=== PATIENT | female | born 1945 | race Caucasian/White ===

== ENCOUNTER 2017-03-24 06:42 | Day surgery (SDC) | payer MEDICARE, OTHER ==
[~2017-03-24 06:42] MED LIST: LIDOCAINE 3.5 % 1ML OPHTH TOPICAL GEL OU
[2017-03-24] MEDS ORDERED: PHENYLEPHRINE HCL 10 % OPHTH. SOL 5ML OS (07:00)
[2017-03-24] MEDS ORDERED: D5W/0.2% SODIUM CHLORIDE 1,000 ML IV (07:00)
[2017-03-24] MEDS ORDERED: PROPARACAINE 0.5% OPHTH SOL 15ML OS (07:01)
[2017-03-24] MEDS ORDERED: fentaNYL 100 MCG/2 ML INJECTION (J3010) As Ordered (07:12)
[2017-03-24] MEDS ORDERED: MIDAZOLAM INJ 2 MG/2 ML VIAL (J2250) As Ordered (07:12)
[2017-03-24] MEDS: CYCLOPENTOLATE 2% OPHTH SOLN 2ML BTL OS (07:21)
[2017-03-24] MEDS: OFLOXACIN 0.3 % (OCUFLOX) OPTH SOL 5ML OS (07:21)
[2017-03-24] MEDS: TROPICAMIDE 1% OPHTH SOLN 2ML OS (07:21)
[2017-03-24] MEDS: PHENYLEPHRINE 2.5% OPHTH SOL 2ML OS (07:21)
[2017-03-24] MEDS: LIDOCAINE 3.5 % 1ML OPHTH TOPICAL GEL OU (07:22)
[2017-03-24] MEDS: POVIDONE-IODINE 5% OPHTH PREP SOL 30ML As Ordered (08:25)
[2017-03-24] MEDS: LIDOCAINE 1% SDV 5 ML VIAL As Ordered (08:25)
[2017-03-24] MEDS: CEFUROXIME 1MG/0.1ML INTRACAMERAL INJ As Ordered (08:25)
[2017-03-24] MEDS: BALANCED SALT IRRIGATION SOLUTION 500ML BAG (FOR OR EYE MACHINE) As Ordered (08:25)
[2017-03-24] MEDS: HEALON DUET (HEALON 10MG/ML 0.55ML & HEALON ENDOCOAT 30MG/ML 0.85ML) As Ordered (08:25)
[2017-03-24] MEDS: ACETYLCHOLINE OPHTH SOLN 1% 2ML (MIOCHOL-E) As Ordered (08:25)
[2017-03-24] MEDS ORDERED: AcetaZOLAMIDE 500 MG ER CAP PO (09:00)
[2017-03-24] MEDS ORDERED: TRIMETHOBENZAMIDE 300 MG CAP PO (09:00)
[2017-03-24] MEDS ORDERED: KETOROLAC 0.5% OPHTH SOLN OS (09:00)
== END 2017-03-24 09:30 | disposition home or self-care (01) ==
LOC: M SDC 06:42
DX: H25.12 Age-related nuclear cataract, left eye (principal); I48.91 Unspecified atrial fibrillation; I10 Essential (primary) hypertension; E78.00 Pure hypercholesterolemia, unspecified; I34.8 Other nonrheumatic mitral valve disorders; L21.9 Seborrheic dermatitis, unspecified; D86.0 Sarcoidosis of lung; R06.02 Shortness of breath; M12.9 Arthropathy, unspecified; M54.5 Low back pain; J45.909 Unspecified asthma, uncomplicated; Z88.6 Allergy status to analgesic agent; Z79.899 Other long term (current) drug therapy; Z79.82 Long term (current) use of aspirin; Z79.01 Long term (current) use of anticoagulants; Z91.010 Allergy to peanuts; Z95.0 Presence of cardiac pacemaker; Z87.81 Personal history of (healed) traumatic fracture; Z78.0 Asymptomatic menopausal state
CPT/HCPCS: 66984

== ENCOUNTER 2017-05-19 08:35 | Day surgery (SDC) | payer MEDICARE, OTHER ==
[~2017-05-19 08:35] MED LIST changes: +CYCLOPENTOLATE 2% OPHTH SOLN 2ML BTL OD; +OFLOXACIN 0.3 % (OCUFLOX) OPTH SOL 5ML OD; +PHENYLEPHRINE 2.5% OPHTH SOL 2ML OD; +PHENYLEPHRINE HCL 10 % OPHTH. SOL 5ML OD; +PROPARACAINE 0.5% OPHTH SOL 15ML OD; +TROPICAMIDE 1% OPHTH SOLN 2ML OD
[2017-05-19] MEDS ORDERED: PHENYLEPHRINE 2.5% OPHTH SOL 2ML As Ordered (08:57)
[2017-05-19] MEDS ORDERED: CYCLOPENTOLATE 2% OPHTH SOLN 2ML BTL As Ordered (08:57)
[2017-05-19] MEDS ORDERED: OFLOXACIN 0.3 % (OCUFLOX) OPTH SOL 5ML As Ordered (08:57)
[2017-05-19] MEDS ORDERED: TROPICAMIDE 1% OPHTH SOLN 2ML As Ordered (08:57)
[2017-05-19] MEDS: AcetaZOLAMIDE 500 MG ER CAP PO (09:00)
[2017-05-19] MEDS ORDERED: TRIMETHOBENZAMIDE 300 MG CAP PO (09:00)
[2017-05-19] MEDS ORDERED: fentaNYL 100 MCG/2 ML INJECTION (J3010) As Ordered (09:05)
[2017-05-19] MEDS ORDERED: MIDAZOLAM INJ 2 MG/2 ML VIAL (J2250) As Ordered (09:05)
[2017-05-19] MEDS: POVIDONE-IODINE 5% OPHTH PREP SOL 30ML As Ordered (09:08)
[2017-05-19] MEDS: BALANCED SALT IRRIGATION SOLUTION 500ML BAG (FOR OR EYE MACHINE) As Ordered (10:10)
[2017-05-19] MEDS: LIDOCAINE 1% SDV 5 ML VIAL As Ordered (10:10)
[2017-05-19] MEDS: HEALON DUET (HEALON 10MG/ML 0.55ML & HEALON ENDOCOAT 30MG/ML 0.85ML) As Ordered (10:19)
[2017-05-19] MEDS: CEFUROXIME 1MG/0.1ML INTRACAMERAL INJ As Ordered (10:19)
[2017-05-19] MEDS ORDERED: ONDANSETRON 4MG/2ML VIAL (J2405) IV (10:45)
[2017-05-19] MEDS: KETOROLAC 0.5% OPHTH SOLN OD (10:51)
== END 2017-05-19 11:00 | disposition home or self-care (01) ==
LOC: M SDC 08:35
DX: H25.11 Age-related nuclear cataract, right eye (principal); I48.91 Unspecified atrial fibrillation; I10 Essential (primary) hypertension; E78.00 Pure hypercholesterolemia, unspecified; I34.9 Nonrheumatic mitral valve disorder, unspecified; K21.9 Gastro-esophageal reflux disease without esophagitis; D86.0 Sarcoidosis of lung; M54.5 Low back pain; J45.909 Unspecified asthma, uncomplicated; Z88.6 Allergy status to analgesic agent; Z91.010 Allergy to peanuts; Z79.899 Other long term (current) drug therapy; Z79.82 Long term (current) use of aspirin; Z79.01 Long term (current) use of anticoagulants; Z95.0 Presence of cardiac pacemaker; Z96.9 Presence of functional implant, unspecified
CPT/HCPCS: 66984

== ENCOUNTER → 2019-05-30 | Outpatient (CLI) | payer MEDICARE, OTHER ==
[~2019-05-30] MED LIST changes: +ASPI81TA26 PO; +BIMA01SOL OU; +BRIM1OPD OU; +CART240C3 PO; -CYCLOPENTOLATE 2% OPHTH SOLN 2ML BTL OD; +DORZ2OPD OU; +ELIQ2.5T PO; +EZET10TA21 PO; +FURO40TA2 PO; -LIDOCAINE 3.5 % 1ML OPHTH TOPICAL GEL OU; +NEXI40CA PO; -OFLOXACIN 0.3 % (OCUFLOX) OPTH SOL 5ML OD; -PHENYLEPHRINE 2.5% OPHTH SOL 2ML OD; -PHENYLEPHRINE HCL 10 % OPHTH. SOL 5ML OD; +PRED10TA2 PO; +PROAAER10 INH; +PROP325C2 PO; -PROPARACAINE 0.5% OPHTH SOL 15ML OD; +SYMB80INH INH; -TROPICAMIDE 1% OPHTH SOLN 2ML OD
[2019-05-30 10:09] LABS: INR 0.94; PROTHROMBIN TIME 12.3 SECONDS (11.8-14.0)
[2019-05-30 10:17] LABS: BASO % 0.3 % (0.0-1.0); EOS % 0.4 % (0.0-3.0); HEMATOCRIT 35.1 % (36.0-47.0); HEMOGLOBIN 10.4 g/dl (12.0-15.5); LYMPH # 0.6 10^3/uL (1.5-5.0); LYMPH % 8.2 % (24.0-44.0); MEAN CORPUSCULAR HGB CONC 29.6 g/dl (32.0-36.5); MEAN CORPUSCULAR VOLUME 91.2 fl (80.0-96.0); MONO # 0.6 10^3/uL (0.0-0.8); MONO % 8.4 % (0.0-5.0); NEUTROPHILS # 6.3 10^3/uL (1.5-8.5); NEUTROPHILS % 82.3 % (36.0-66.0); PLATELET COUNT, AUTOMATED 212 10^3/uL (150-450); RED BLOOD COUNT 3.85 10^6/uL (4.00-5.40); WHITE BLOOD COUNT 7.6 10^3/uL (4.0-10.0)
[2019-05-30 10:43] LABS: ALBUMIN 3.2 GM/DL (3.2-5.2); ALT/SGPT 16 U/L (12-78); BILIRUBIN,TOTAL 0.4 MG/DL (0.2-1.0); BLOOD UREA NITROGEN 16 MG/DL (7-18); CALCIUM LEVEL 9.3 MG/DL (8.8-10.2); CARBON DIOXIDE LEVEL 52 MEQ/L (21-32); CHLORIDE LEVEL 82 MEQ/L (98-107); CREATININE FOR GFR 0.66 MG/DL (0.55-1.30); GLOMERULAR FILTRATION RATE > 60.0 (>39); GLUCOSE, FASTING 93 MG/DL (70-100); POTASSIUM SERUM 3.6 MEQ/L (3.5-5.1); SODIUM LEVEL 135 MEQ/L (136-145); TOTAL PROTEIN 7.9 GM/DL (6.4-8.2)
--- NOTE | 2019-05-30 11:18 | REP ---
CHEST X-RAY: Two views. HISTORY: Post thoracentesis. Status post for ultrasound-guided right thoracentesis. Comparison CT images April 05, 2019. FINDINGS: The right pleural effusion is improved. There is no evidence of complication. On lateral radiograph there is a tiny sliver of pleural air posteriorly on the right. There is extensive pulmonary parenchymal opacity in the right perihilar region and interstitial nodular changes are seen in the right upper lobe. Linear fibrosis is visible on the left and biapical pleural fibrosis is seen. Cardiomegaly is observed with pacemaker in place. IMPRESSION: No complication identified. Electronically Signed by Huber Pulliam MD 05/30/2019 01:28 P
[2019-05-30 11:22] LABS: APPEARANCE, BODY FLUID HAZY (CLEAR); PLEURAL FL COLOR PALE YELLOW (COLORLESS); SOURCE, BODY FLUID PLEURAL
[2019-05-30 11:30] LABS: PH BODY FLUID 7.773 UNITS (NOT ESTABLISHED); SOURCE, BODY FLUID pH PLEURAL
[2019-05-30 11:43] LABS: AMYLASE, BODY FLUID 39 U/L (NOT ESTABLISHED); LDH, BODY FLUID 95 U/L (NOT ESTABLISHED); SOURCE, BODY FLUID AMYLASE PLEURAL; SOURCE, BODY FLUID GLUCOSE PLEURAL; SOURCE, BODY FLUID LDH PLEURAL; SOURCE, BODY FLUID TOT PROTEIN PLEURAL; TOTAL PROTEIN, BODY FLUID 4.3 G/DL (NOT ESTABLISHED)
[2019-05-30 13:00] VITALS: BP 130/60
--- NOTE | 2019-05-30 17:28 | REP ---
ULTRASOUND-GUIDED RIGHT THORACENTESIS The procedure was performed under the direct supervision of Dr. Pulliam. The risks and benefits of the procedure were explained to the patient and informed consent was obtained. The right pleural effusion was localized using ultrasound guidance. The skin was prepped and draped in a sterile fashion. 1% lidocaine was used as a local anesthetic. An 8-Slovak multi side-hole catheter was inserted using trocar technique. 990 ml of jessa colored fluid was withdrawn with a sample sent to the lab for analysis. The patient tolerated the procedure well and there were no immediate complications. After the appropriate amount of monitored convalescence the patient was discharged from the department. Electronically Signed by JEANETH Ahmadi 05/30/2019 03:46 P Electronically Signed by Huber Pulliam MD 05/30/2019 05:19 P
== END ==
LOC: M IRPRO 09:15
PROVIDERS: ATTEND Internal Medicine Pulmonary Disease
DX: J90 Pleural effusion, not elsewhere classified (principal)

== ENCOUNTER → 2019-07-14 | Outpatient (CLI) | payer MEDICARE, OTHER ==
[~2019-07-14] MED LIST changes: +COMB0.2S OU; +ELIQ5TAB PO; +K-TA10TA PO; +POTA1TAB14 PO; +SM E1DRO2 OU; +VENTAER INH
== END ==
LOC: M LABSMTC 11:22
PROVIDERS: ATTEND Anesthesiology
DX: Z01.818 Encounter for other preprocedural examination (principal); Z11.59 Encounter for screening for other viral diseases

== ENCOUNTER 2019-07-15 12:57 | Inpatient (IN) | payer MEDICARE, OTHER ==
[2019-07-15] VITALS (21 sets, daily range): BP systolic 93–144; BP diastolic 45–80; O2SAT 96
[~2019-07-15] VITALS: Ht 162.6 cm; Wt 45.9 kg
[~2019-07-15 12:57] MED LIST changes: +ASPIRIN 81 MG ENTERIC TAB PO SCH; -ELIQ5TAB PO; -K-TA10TA PO; +PANTOPRAZOLE 40MG TAB (PROTONIX) PO SCH
[2019-07-15 16:14] LABS: ABG BASE EXCESS 25.3 (-2.0-2.0); ABG HCO3 58.9 MEQ/L (22.0-26.0); ABG O2 SATURATION 95.9 % (95.0-99.0); ABG PARTIAL PRESSURE CO2 142.5 mmHg (35.0-45.0); ABG PARTIAL PRESSURE O2 90.4 mmHg (75.0-100.0); ABG STANDARD HCO3 50.3 MEQ/L (22.0-26.0); ABG TOTAL CO2 63.3 MEQ/L (23.0-31.0); ABG pH (ARTERIAL) 7.234 UNITS (7.350-7.450)
[2019-07-15 16:24] LABS: HEMATOCRIT 39.8 % (36.0-47.0); HEMOGLOBIN 11.1 g/dl (12.0-15.5); MEAN CORPUSCULAR HEMOGLOBIN 26.8 pg (27.0-33.0); MEAN CORPUSCULAR HGB CONC 27.9 g/dl (32.0-36.5); MEAN CORPUSCULAR VOLUME 96.1 fl (80.0-96.0); PLATELET COUNT, AUTOMATED 214 10^3/uL (150-450); RED BLOOD COUNT 4.14 10^6/uL (4.00-5.40); WHITE BLOOD COUNT 8.9 10^3/uL (4.0-10.0)
[2019-07-15 16:35] LABS: INR 0.95; PROTHROMBIN TIME 12.4 SECONDS (11.8-14.0)
[2019-07-15] MEDS ORDERED: ELIQ5TAB PO (16:47)
[2019-07-15] MEDS ORDERED: K-TA10TA PO (16:47)
[2019-07-15] MEDS ORDERED: EZET10TA21 PO (16:47)
[2019-07-15 17:16] LABS: ALBUMIN 2.9 GM/DL (3.2-5.2); ALT/SGPT 16 U/L (12-78); BILIRUBIN,TOTAL 0.3 MG/DL (0.2-1.0); BLOOD UREA NITROGEN 16 MG/DL (7-18); CALCIUM LEVEL 9.5 MG/DL (8.8-10.2); CHLORIDE LEVEL 85 MEQ/L (98-107); CK-MB VALUE MASS 3.3 NG/ML (<3.6); CPK CREATINE PHOSPHOKINASE 76 U/L (26-192); CREATININE FOR GFR 0.61 MG/DL (0.55-1.30); GLOMERULAR FILTRATION RATE > 60.0 (>39); GLUCOSE, FASTING 97 MG/DL (70-100); MB/CK RELATIVE INDEX 4.34 (< OR =4); NT-PRO BNP 1552 PG/ML (<450); SODIUM LEVEL 143 MEQ/L (136-145); TOTAL PROTEIN 7.6 GM/DL (6.4-8.2); TROPONIN I 0.02 NG/ML (< 0.10)
[2019-07-15 17:17] LABS: CARBON DIOXIDE LEVEL 52 MEQ/L (21-32)
--- NOTE | 2019-07-15 17:28 | HPEPDOC ---
General Date of Admission July 15, 2019 at 15:43 Date of Service: July 15, 2019 Chief Complaint The patient is a 74-year-old female who was transferred from [facility] for right-sided pleural effusion and worsening shortness of breath History of Present Illness Patient is a 74, her female with a PMHx A. fib (on Eliquis), CHF (unknown EF), Symptomatic Betito s/p PM (2017), HTN, DLP, Chronic hypoxic respiratory failure (on 3L O2), Moderate Persistent Asthma, Restrictive lung di sease 2/2 Sarcoidosis, Allergic Rhinitis and GERD who was transferred from [facility] for right-sided pleural effusion. Patient has a recent history of right-sided pleural effusion on 05/30/2019. At that time, she had 990 mL of fluid removed that was consistent with trasudative etiology. Cytology and cell block were negative for malignancy. Fluid accumulation was thought to be from congestive heart failure. Patient was advised to follow-up with her outpatient chicle grinder feeder, Dr. Chandler, and continue with her diuretic regimen. Patient has presented to [facility] for worsening shortness of breath and confusion. In the ER, patient had imaging completed that had revealed a moderate to large right-sided pleural effusion and a hazy left lower lobe opacity. Patient blood test run that showed pH 7.2/pCO 140. Providers had contacted [facility] for transfer for drainage of effusion and BiPAP support. Patient was placed on BiPAP and transferred to [facility]. Upon arrival patient is oriented to person, place and time. Currently patient denies any headache, nausea, vomiting, chest pain or palpitations. . She does report shortness of breath. Reports no change in her baseline cough. Report some chills without fevers. Denies any abdominal pain has reported constipation, no diarrhea or urinary discomfort. Patient has reported that her lower extremities always experience swelling, left is usually worse than right. Home Medications Scheduled Apixaban (Eliquis) 5 Mg Tablet, 2.5 MG PO BID, (Reported) Aspirin (Aspirin EC) 81 Mg Tab, 81 MG PO DAILY, (Reported) Bimatoprost (Lumigan) 50 Drop/2.5 Ml Tabitha, 1 DROP OU QHS, (Reported) Brimonidine Tartrate/Timolol (Combigan 0.2%-0.5% Eye Drops) 5 Ml Drops, 1 DROP OU BID, (Reported) Budesonide/Formoterol (Symbicort 80-4.5 Mcg Inhaler) 60 Puff/Inhaler Aers, 2 PUFF INH BID, (Reported) Diltiazem HCl (Cartia Xt) 240 Mg Cap, 240 MG PO DAILY, (Reported) PT TAKES IN PUDDING Esomeprazole Magnesium (Nexium) 40 Mg Cap, 40 MG PO DAILY, (Reported) Ezetimibe (Ezetimibe) 10 Mg Tablet, 10 MG PO DAILY, (Reported) Furosemide (Furosemide) 40 Mg Tab, 40 MG PO DAILY, (Reported) Ketotifen Fumarate (Eye Itch Relief) 5 Ml Drops, 0.025 % OU PRN, (Reported) Potassium Chloride (K-Tab ER) 10 Meq Tablet.er, 10 MEQ PO DAILY, (Reported) PT TAKES IN PUDDING Propafenone HCl (Propafenone HCl ER) 325 Mg Cap, 325 MG PO BID, (Reported) PT TAKES IN PUDDING Scheduled PRN Albuterol Sulfate (Ventolin Hfa) 18 Gm Hfa.aer.ad, 2 PUFFS INH DAILY PRN for DYSPNEA, (Reported) Allergies Coded Allergies: Peanut (Unverified Allergy, Intermediate, hives, 07/14/19) acetaminophen (Verified Allergy, Intermediate, rash, 07/14/19) Past Medical History Medical History A. fib (on Eliquis), CHF (unknown EF), Symptomatic Betito s/p PM (2017), HTN, DLP, Chronic hypoxic respiratory failure (on 3L O2), Moderate Persistent Asthma, Restrictive lung disease 2/2 Sarcoidosis, Allergic Rhinitis and GERD Surgical History Pacemaker placement [address] Gonzales; patient is scheduled for battery replacement 07/17/2019 R sided thoracentesis, 05/30/2019, remove 990 mL of fluid. Cytology negative. Cell block negative. 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 - Baseline, patient uses a walker/cane to ambulate Review of Systems Other systems 10 point review of systems complete, all negative otherwise stated in HPI Vital Signs - Vitals: BP 137/63, HR 83, RR 22, Sat 94%Venti, Temp 97.6F - General: Lying in bed, Can speak in full sentences, AAOx3 - HEENT: NC, AT, PERRLA - CVS: RRR, +S1S2 - Lungs: Decreased aeration of right lung base, no appreciable wheezing or rhonchi, very faint crackles at left base - Abdomen: Soft, Non-distended, Non-tender - Extremities: 2+ pitting edema bilaterally, No calf tenderness - Neuro: No focal motor or sensory deficit - Skin: No visible rashes Laboratory Data Labs 24H Laboratory Tests 2 07/15/19 15:58: Nucleated Red Blood Cells % (auto) 0.0, Prothrombin Time 12.4, Prothromb Time International Ratio 0.95, Blood Gas Bicarbonate Standard 50.3H, Arterial Blood pH 7.234*L, Arterial Blood Partial Pressure CO2 142.5*H, Arterial Blood Partial Pressure O2 90.4, Arterial Blood Total CO2 63.3H, Arterial Blood HCO3 58.9H, Arterial Blood Base Excess 25.3H, Arterial Blood Oxygen Saturation 95.9, Anion Gap 6L, Glomerular Filtration Rate > 60.0, Lactic Acid Level 1.0, Calcium Level 9.5, Total Bilirubin 0.3, Aspartate Amino Transf (AST/SGOT) 22, Alanine Aminotransferase (ALT/SGPT) 16, Alkaline Phosphatase 112, Ammonia 17, Total Creatine Kinase 76, Creatine Kinase MB 3.3, Creatine Kinase MB Relative Index 4.34H, Troponin I 0.02, VR-Fkl-L-Type Natriuretic Peptide 1552H, Total Protein 7.6, Albumin 2.9L, Albumin/Globulin Ratio 0.62L 07/15/19 16:28: Urine Color STRAW, Urine Appearance CLEAR, Urine pH 5.0, Urine Specific [place] 1.006, Urine Protein NEGATIVE, Urine Glucose (UA) NEGATIVE, Urine Ketones NEGATIVE, Urine Blood 2+H, Urine Nitrite NEGATIVE, Urine Bilirubin NEGATIVE, Urine Urobilinogen 0.2, Urine Leukocyte Esterase NEGATIVE, Urine WBC (Auto) 0, Urine RBC (Auto) 10H, Urine Hyaline Casts (Auto) 25, Urine Bacteria (Auto) NEGATIVE, Urine Squamous Epithelial Cells 0, Urine Mucus (Auto) SMALL, Urine Sperm (Auto) CBC/BMP Laboratory Tests 07/15/19 15:58 Microbiology Microbiology 07/15/19 Blood Culture, Received Pending 07/15/19 Blood Culture, Received Pending Plan / VTE VTE Prophylaxis Ordered?: Yes Plan Plan Acute hypercapnic respiratory failure on Chronic hypoxic respiratory failure - likely 2/2 recurrent R sided pleural effusion - possibly 2/2 congestive heart failure - Patient has a history of restrictive lung disease secondary to sarcoidosis - Chronically uses 3 L of oxygen continuously - Patient recently had right-sided thoracentesis completed 05/2019 with ~1000cc fluid removal; transudative - Upon presentation to [facility] on 07/14, patient was describing SOB - ABG completed at [place] and at [facility] has revealed profound PCO2 retention - CXR 07/14 at [place] revealed moderate-large R pleural effusion, hazy LLL opacity, L sided pacemaker - CT scan ordered stat at [facility] has revealed significant right-sided pleural effusion - Case and discuss with pulmonology and cardiothoracic surgery; will be on consultation for BiPAP management and likely right-sided chest tube placement; appreciate their input - Patient will be placed on BiPAP with repeat ABG to be performed one hour post Recurrent R sided pleural effusion - possibly 2/2 congestive heart failure, unlikely 2/2 pneumonia - Hemodynamically stable / Afebrile - No leukocytosis noted, No lactic acidosis - Physical reveals decreased lung sounds at R lung field and b/l LE pitting edema - Preliminary imaging noted above - Troponin at [facility] was < 0.01 - EKG reveals paced rhythm from [facility] - Will repeat EKG - Will get ECHO / Serial troponins - Will start diuresis for net negative protocol to maintain ~ 2000 cc out - Case and discuss cardiothoracic surgery; will be on consultation for likely right-sided chest tube placement today Acute metabolic encephalopathy - likely 2/2 acid-base abnormalities / pCO2 retention - Physical does not reveal any focal neurologic deficits - Patient is oriented to person, place and time - CT head 07/14: Completed a [facility] does not reveal any acute abnormalities - Will continue to correct acid-base / pCO2 (see above) A. fib - Patient appears to be a paced rhythm - c/w rate control with diltizem; adjusted to short acting - Will hold full anticoagulation with Eliquis (re: Chest tube placement and scheduled battery replacement) Symptomatic Bradycardia s/p PM (2016) - Patient has had pacemaker placed by Dr. Gonzales - Discussed with Dr. Gonzales schedules battery replacement for pacemaker on 07/17/19 - Patient is to remain off pelvis from today and nothing by mouth Wednesday night for PM battery replacement on 07/17/2019 HTN - BP well controlled - Will c/w Diltiazem; will transition to short acting form - c/w Furosemide IV DLP - c/w Ezetimibe Moderate Persistent Asthma /Restrictive lung disease 2/2 Sarcoidosis - See above - Will resume home inhaled therapy Hypomagnesemia - Mg of 1.4 at [place] - Was given Mag run x 1; will repeat Mg level Allergic Rhinitis GERD - c/w Protonix DVT prophylaxis - Will start Heparin - Eliquis on hold (re: Chest tube placement and PM battery exchange on 07/17/2019) NOAH BELLAMY MD July 15, 2019 17:28
[2019-07-15] MEDS ORDERED: LIDOCAINE 1% MDV 20ML VIAL As Ordered ONE (17:42)
[2019-07-15 17:49] LABS: ABG HCO3 65.3 MEQ/L (22.0-26.0); ABG O2 SATURATION 91.7 % (95.0-99.0); ABG PARTIAL PRESSURE CO2 139.2 mmHg (35.0-45.0); ABG PARTIAL PRESSURE O2 67.3 mmHg (75.0-100.0); ABG STANDARD HCO3 58.3 MEQ/L (22.0-26.0); ABG TOTAL CO2 69.6 MEQ/L (23.0-31.0); ABG pH (ARTERIAL) 7.289 UNITS (7.350-7.450)
[2019-07-15] MEDS: FUROSEMIDE 40MG/4ML VIAL (J1940) IV SCH ×3 (18:00→23:50)
[2019-07-15] MEDS ORDERED: LACTULOSE 20 GM/30 ML SYRUP UD PO SCH (18:00)
[2019-07-15] MEDS ORDERED: LIDOCAINE 1% MDV 20ML VIAL SC ONE (18:15)
[2019-07-15] MEDS: PANTOPRAZOLE 40MG VIAL (C9113 PER 1) IV SCH (18:31)
[2019-07-15 18:33] LABS: ABG BASE EXCESS 29.5 (-2.0-2.0); ABG HCO3 62.4 MEQ/L (22.0-26.0); ABG O2 SATURATION 92.1 % (95.0-99.0); ABG PARTIAL PRESSURE CO2 132.7 mmHg (35.0-45.0); ABG PARTIAL PRESSURE O2 68.5 mmHg (75.0-100.0); ABG STANDARD HCO3 55.1 MEQ/L (22.0-26.0); ABG TOTAL CO2 66.4 MEQ/L (23.0-31.0)
[2019-07-15 19:06] LABS: PH BODY FLUID 7.588 UNITS (NOT ESTABLISHED); SOURCE, BODY FLUID pH PLEURAL
[2019-07-15 19:10] LABS: APPEARANCE, BODY FLUID CLOUDY (CLEAR); PLEURAL FL COLOR YELLOW (COLORLESS); SOURCE, BODY FLUID PLEURAL
[2019-07-15 19:28] LABS: LDH LACTATE DEHYDROGENASE 212 U/L (84-246)
[2019-07-15 19:31] LABS: AMYLASE, BODY FLUID 39 U/L (NOT ESTABLISHED); CHOLESTEROL, BODY FLUID < 50 MG/DL (NOT ESTABLISHED); LDH, BODY FLUID 82 U/L (NOT ESTABLISHED); SOURCE, BODY FLUID ALBUMIN PLEURAL; SOURCE, BODY FLUID AMYLASE PLEURAL; SOURCE, BODY FLUID CHOL PLEURAL; SOURCE, BODY FLUID GLUCOSE PLEURAL; SOURCE, BODY FLUID LDH PLEURAL; SOURCE, BODY FLUID TOT PROTEIN PLEURAL; SOURCE, BODY FLUID TRIG PLEURAL; TOTAL PROTEIN, BODY FLUID 3.2 G/DL (NOT ESTABLISHED); TRIGLYCERIDE, BODY FLUID 8 MG/DL (NOT ESTABLISHED)
[2019-07-15] MEDS: SYMBICORT 80/4.5MCG INHALER 6GM INH SCH (20:13)
[2019-07-15] MEDS: ALBUTEROL SULFATE 2.5 MG/0.5 ML INH NEB SOLN INH PRN (20:14)
[2019-07-15 20:42] LABS: ABG BASE EXCESS 25.9 (-2.0-2.0); ABG HCO3 55.8 MEQ/L (22.0-26.0); ABG O2 SATURATION 93.4 % (95.0-99.0); ABG PARTIAL PRESSURE O2 65.7 mmHg (75.0-100.0); ABG STANDARD HCO3 50.9 MEQ/L (22.0-26.0); ABG TOTAL CO2 58.7 MEQ/L (23.0-31.0); ABG pH (ARTERIAL) 7.395 UNITS (7.350-7.450)
[2019-07-15 20:46] LABS: ABG PARTIAL PRESSURE CO2 93.3 mmHg (35.0-45.0)
[2019-07-15 21:07] LABS: CK-MB VALUE MASS 3.1 NG/ML (<3.6); MB/CK RELATIVE INDEX 4.03 (< OR =4); TROPONIN I 0.02 NG/ML (< 0.10)
--- NOTE | 2019-07-15 21:36 | CCN ---
DATE: 07/15/2019 Start time: 1819 Stop time: 1853 I attended Liv Caicedo here in the intensive care unit. The patient has been examined and chart reviewed and I spoken at length with Dr. Mathis, the nursing staff at the bedside and Dr. Romo regarding her status. He has just recently updated the family as well. In essence, this is a 74-year-old female known to me from the outpatient setting. She has underlying asthma, previous sarcoid, chronic hypoxemic respiratory failure with Cor pulmonale and known cardiac dysfunction with indwelling pacemaker. She recently had difficulties with right-sided pleural effusion and this was drained about six weeks ago. [place] to be predominantly cardiac related. She presented to [facility] emergency room (ER) today with mental status changes. She was found to have a very significant respiratory acidosis with a pH of 7.21, pCO2 of 136. She was transferred here. On arrival, on 2 liters nasal cannula, pH 7.234, pCO2 142, pAO2 of 90.4. She was placed on noninvasive support. PH 7.289, pCO2 139.2, pAO2 of 67. Right thoracostomy placed by Dr. Mathis, removed approximately 1.5 liter of fluid. Immediately after that, repeat blood gas showed a pH now up to 7.29, pCO2 132.7, pAO2 of 68.5. Noninvasive support settings were manipulated by myself. Currently, she is breathing about 14 to 18 times a minute. Minute volume in and around 5.5 liters. She is moving tidal volumes between 270 and 300 at the moment and is quite comfortable. Pacemaker is firing with the rate in the 70s. Blood pressure 126 systolic. She is afebrile. On exam, shows her to be arousable to noxious stimuli, but does not follow commands. This is significantly better than she was about an hour and a half ago, however. Pupils react. Sclerae are clear. Trache is midline. Jugular venous is difficult to assess in view of the BiPAP mask. Chest shows a right thoracostomy tube in place. Expansion although diminished is symmetric. Decreased breath sound intensity bilaterally. No wheeze. No rubs. Heart exam distant, but regular. Peripheral pulses markedly diminished. There is at least 2 to 3+ edema of the lower extremities to the level of the hips bilaterally. Abdomen soft, there are active bowel sounds. Extremities: No cyanosis or clubbing. Neurologically, she is sedated and moves all extremities when stimulated. The laboratories show a sodium of 143, potassium of 5.0, chloride of 85, CO2 of 52, BUN 16, creatinine 0.61. Troponin is 0.02. White blood cell count 8.9, hemoglobin 11.1 and platelet count of 214,000, no differential. No methicillin-resistant Staphylococcus aureus (MRSA). She was tested for COVID several days ago and it is negative, as she was due to have a pacemaker battery replaced several days from now. MOST PRESSING PROBLEMS REQUIRED MY INTERMEDIATE PRESENCE AT THE BEDSIDE: 1. Acute on chronic respiratory failure, hypoxemic and hypercapnic. 2. Cor pulmonale. 3. Pleural effusion predominately on the basis of the above. 4. History of asthma. 5. History of sarcoid. 6. Indwelling pacemaker. At this point, we made manipulations in noninvasive support. Will repeat a blood gas at 9 o'clock. This situation was discussed with her family by Dr. Romo and at this point, they do request at least a trial of intubation and C-reactive protein (CRP), but do not wish prolonged support should she not be doing well. We await a repeat blood gas. My hopes is that she can avoid endotracheal intubation. We will aggressively diurese her. This is being engineered by Dr. Romo. We will continue treatment for underlying asthma. At this point, she is critically ill. I left the bedside at 1854 hours. 34 minutes of critical care time at the bedside, not including procedures.
[2019-07-15] MEDS ORDERED: PROPOFOL 1,000 MG/100 ML VIAL As Ordered ONE (21:55)
--- NOTE | 2019-07-15 22:04 | IPNPDOC ---
Text Note Date of Service The patient was seen on 07/15/19. NOTE Code called at 2150 We were called to the bedside bc the patient's O2 sat dropped to the 60s and she was found to be unresponsive. She continued to have a pulse. She was intubated by anesthesiology at approximately 1005PM. was informed. 106/54 / HR 94 ? RR 22/ O2 94% sedated and intubated ET in place connected to bag #Acute hypoxic respiratory failure Plan: vent management per / pulmonary training / f/u chest xray and ABG in one hour VS,Fishbone, I+O VS, Fishbone, I+O Laboratory Tests 07/15/19 15:58 Vital Signs Date Time Temp Pulse Resp B/P (MAP) Pulse Ox O2 Delivery O2 Flow Rate FiO2 07/15/19 20:14 30 07/15/19 20:00 98.2 161 131/80 (97) 95 NIPPV (BIPAP/CPAP) 40 07/15/19 15:50 15.0 RHODA PRINCE MD July 15, 2019 22:04
[2019-07-15] MEDS ORDERED: PHENYLEPHRINE 10MG/ML 1ML VIAL (J2370 PER 1) As Ordered ONE (22:09)
[2019-07-15] MEDS ORDERED: NS 1,000 ML IV SCH (22:15)
[2019-07-15] MEDS ORDERED: LORazepam 2 MG/ML VIAL (J2060) As Ordered ONE (23:00)
[2019-07-15] MEDS ORDERED: LORazepam 2 MG/ML VIAL (J2060) IV PRN ×2 (23:15)
[2019-07-15] MEDS ORDERED: levETIRAcetam INJection 1,000 MG in D5W 100 ML IV ONE (23:15)
[2019-07-15 23:34] LABS: ABG BASE EXCESS 24.7 (-2.0-2.0); ABG HCO3 48.8 MEQ/L (22.0-26.0); ABG O2 SATURATION 98.4 % (95.0-99.0); ABG PARTIAL PRESSURE CO2 47.9 mmHg (35.0-45.0); ABG PARTIAL PRESSURE O2 85.3 mmHg (75.0-100.0); ABG STANDARD HCO3 49.7 MEQ/L (22.0-26.0); ABG TOTAL CO2 50.3 MEQ/L (23.0-31.0)
[2019-07-15 23:35] LABS: ABG pH (ARTERIAL) 7.626 UNITS (7.350-7.450)
[2019-07-15] MEDS ORDERED: ISOVUE-370 76% 100ML VIAL As Ordered ONE (23:45)
[2019-07-15] MEDS: HEPARIN SOD (PORCINE) 5000UNITS/ML VIAL (J1644 PER 1000UNITS) SQ SCH (23:48)
[2019-07-16] VITALS (69 sets, daily range): BP systolic 81–149; BP diastolic 37–75; O2SAT 94–95
--- NOTE | 2019-07-16 00:49 | REPVR ---
PROCEDURE INFORMATION: Exam: CT Head Without And With Contrast Exam date and time: 07/15/2019 12:27 AM Age: 74 years old Clinical indication: Pain; Headache; Additional info: Witnessed seizure after loc TECHNIQUE: Imaging protocol: Computed tomography of the head without and with intravenous contrast. Radiation optimization: All CT scans at this facility use at least one of these dose optimization techniques: automated exposure control; mA and/or kV adjustment per patient size (includes targeted exams where dose is matched to clinical indication); or iterative reconstruction. Contrast material: ISO 370; Contrast volume: 75 ml; Contrast route: IV; COMPARISON: CT IAC W/O CONTRAST 12/08/2013 2:37 PM FINDINGS: Brain: Mild hypodensities in the periventricular white matter which are consistent with chronic small vessel ischemic disease. No acute mass effect. No acute intracranial hemorrhage. Cortical castaneda-white matter differentiation is preserved. No abnormal enhancing lesions. Ventricles: Normal. No ventriculomegaly. Bones/joints: Unremarkable. No acute fracture. Sinuses: Visualized sinuses are unremarkable. No fluid levels. Mastoid air cells: Visualized mastoid air cells are well aerated. Soft tissues: Unremarkable. Vasculature: Atherosclerotic calcification of the carotid siphon. IMPRESSION: 1. Mild hypodensities in the periventricular white matter which are consistent with chronic small vessel ischemic disease. 2. No abnormal enhancing lesions. Electronically signed by: Marcela Ribeiro On 07/16/2019 00:49:24 AM
[2019-07-16 02:13] LABS: CK-MB VALUE MASS 1.8 NG/ML (<3.6); MB/CK RELATIVE INDEX 1.43 (< OR =4); TROPONIN I 0.05 NG/ML (< 0.10)
[2019-07-16 02:26] LABS: BLOOD UREA NITROGEN 20 MG/DL (7-18); CALCIUM LEVEL 8.3 MG/DL (8.8-10.2); CHLORIDE LEVEL 77 MEQ/L (98-107); CREATININE FOR GFR 0.66 MG/DL (0.55-1.30); GLOMERULAR FILTRATION RATE > 60.0 (>39); GLUCOSE, FASTING 120 MG/DL (70-100); MAGNESIUM LEVEL 1.5 MG/DL (1.8-2.4); POTASSIUM SERUM 4.2 MEQ/L (3.5-5.1); SODIUM LEVEL 130 MEQ/L (136-145)
[2019-07-16] MEDS ORDERED: MAG SULF 1GM/100ML (MAG RUN) 1 GM in IV 1 EA IV ONE (02:30)
[2019-07-16 02:40] LABS: CARBON DIOXIDE LEVEL 50 MEQ/L (21-32)
[2019-07-16] MEDS ORDERED: ACETAZOLAMIDE 500 MG IV STA (03:18)
[2019-07-16] MEDS ORDERED: NOREPINEPHRINE BITARTRATE 8 MG in D5W 500 ML IV SCH (05:14)
[2019-07-16 05:29] LABS: ALBUMIN 2.1 GM/DL (3.2-5.2)
[2019-07-16 05:54] LABS: ABG BASE EXCESS 24.8 (-2.0-2.0); ABG HCO3 50.2 MEQ/L (22.0-26.0); ABG O2 SATURATION 93.2 % (95.0-99.0); ABG PARTIAL PRESSURE CO2 56.8 mmHg (35.0-45.0); ABG PARTIAL PRESSURE O2 54.9 mmHg (75.0-100.0); ABG STANDARD HCO3 49.5 MEQ/L (22.0-26.0); ABG TOTAL CO2 51.9 MEQ/L (23.0-31.0); ABG pH (ARTERIAL) 7.564 UNITS (7.350-7.450)
[2019-07-16] MEDS: levETIRAcetam INJection 500 MG in D5W MINI-BAG PLUS 100 ML IV SCH ×2 (06:49→18:01)
[2019-07-16] MEDS: HEPARIN SOD (PORCINE) 5000UNITS/ML VIAL (J1644 PER 1000UNITS) SQ SCH ×3 (06:49→21:03)
--- NOTE | 2019-07-16 07:47 | REP ---
REASON: Followup pleural effusion. The lack of intravenous contrast significantly decreases the sensitivity of the exam. COMPARISON EXAM: 04/05/2019 from an outside institution. There are large bilateral pleural effusions, large on the right, small on the left, possibly with some loculation. These have increased from the prior exam. There is possible bilateral hilar adenopathy, difficult to assess without intravenous contrast administration. In addition, there is marked streak artifact arising from pacemaker battery and hardware on the left. The imaged upper abdomen is stable. The imaged osseous structures are stable and intact. Evaluation of the lung mills shows heavy patchy interstitial and airspace opacities throughout the lung mills. IMPRESSION: 1. Bilateral pleural effusions, as described above. 2. Possible bilateral hilar adenopathy, as described above. 3. Bilateral airspace and interstitial opacities increased from the prior exam suspicious for pneumonia/edema. 4. Other findings and limitations as described above. Electronically Signed by Buddy Stoner DO 07/16/2019 08:39 A
--- NOTE | 2019-07-16 07:52 | CR ---
DATE OF CONSULTATION: 07/15/2019 REFERRING PHYSICIAN: The patient seen at the request of the hospitalist service, Dr. Romo, for a large pleural effusion and shortness of breath. At the time of my meeting the patient at around 5 o'clock this afternoon, she was still unresponsive. Even a sternal rub did not elicit a response. The history of present illness is gleaned from the medical record. She is a longstanding patient of Dr. Melgar who has sarcoidosis and supposed chronic obstructive pulmonary disease (COPD). She had a pleural effusion drained towards the end of May, which looked to be transudative and lymphocytic. It was thought that it was secondary to heart failure. She carries the diagnosis of old sarcoidosis, along with congestive heart failure (CHF) and atrial fibrillation, on Eliquis. Evidently, this afternoon, she presented to [facility] for increasing shortness of breath and confusion. Chest x-ray revealed a very large opacity on her right side consistent with a pleural effusion. The patient's blood gas at this point in time showed a PCO2 of 140. By history of Dr. Melgar, she is chronically hypercarbic. She was transferred here. MEDICATIONS AT HOME: - Eliquis 5 mg by mouth twice a day - aspirin 81 mg every day - Lumigan one drop both eyes (OU) nightly - Combigan eyedrops one drop OU twice a day - Symbicort 80/4.5 two puffs twice a day - diltiazem 240 mg every day - Nexium 40 mg every day - ezetimibe 10 mg every day - Lasix 40 mg every day - K-Dur 10 mg every day - propafenone 325 mg every day ALLERGIES: PEANUTS and ACETAMINOPHEN, to which she gets a rash. PAST MEDICAL HISTORY: See history of present illness. PAST SURGICAL HISTORY: Pacemaker [address] Gonzales scheduled for battery replacement this Wednesday, thoracentesis on 05/30/2019 with removal of 990 mL of fluid, left and right cataract surgeries, left humeral fracture, left ankle fracture, appendectomy, and tonsillectomy in the remote past. FAMILY HISTORY: Mother and father with a history of heart disease. No cancer in the family. HABITS: Unknown smoking history. According to the history and physical when she was awake, she does not use tobacco or illicit drugs and that she drinks alcohol socially. 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 REVIEW OF SYSTEMS: Not obtainable. PHYSICAL EXAMINATION: An undernourished white female, not responsive and unconscious. VITAL SIGNS: Temperature is 97.6 with a pulse of 84 in a paced rhythm, respiratory rate of 42 but without the use of accessory muscles but on bilateral positive airway pressure (BiPAP). She is 96% saturated on 100% FIO2, and her blood pressure is 144/64. EYES: Pupils pinpoint but equal. I do not get reaction because they are so constricted. I cannot tell if extraocular movements are intact. Her sclerae are anicteric. NOSE: Without deformity with some dried blood in the left nostril. MOUTH: Mucous membranes are pink and moist. She has a full set of upper teeth. There is no thrush. Lips and commissures look to be without lesions. NECK: Is supple. There is no jugular venous distention, no subcutaneous emphysema. Trachea is midline. LUNGS: Show markedly decreased breath sounds on the right side laterally and anteriorly. They are decreased laterally on the right. The left shows rhonchi and rales. CARDIAC EXAMINATION: Shows a 2-3 old systolic murmur at the apex. I cannot feel her point of maximal impulse (PMI). S1 and S2 are normal. ABDOMEN: Is soft and nontender. Bowel sounds are positive. I feel a mass in the left upper quadrant. I am not sure whether it is her spleen. EXTREMITIES: Show 3-4+ pretibial edema. I cannot tell if there is calf tenderness. There is no differential swelling of the upper extremities. SKIN: Shows mottling of the knees. Her skin, however, is warm and dry. NEUROLOGICAL: Shows her to be unresponsive. I did not check a gag reflex because she is on BiPAP. There is no response to a sternal rub. PSYCHIATRIC: Shows her to be unconscious. INVESTIGATIONS: Her white count is 8.9 with hemoglobin and hematocrit of 11.1 and 39.8. Platelet count is 214. There is no differential. Her electrolytes show a markedly elevated total CO2 of 52 and a chloride of 85. BUN and creatinine are 16 and 0.61. Lactic acid is 1. Her AST and ALT are normal, as is her ammonia level. Troponin is 0.02, and her brain natriuretic peptide is 1552 with an albumin of 2.9 and a calcium of 9.5. Her corrected calcium is 10.4, which makes her hypercalcemic. Her blood gases today show a pH of 7.28 with a PCO2 of 139 and a pO2 of 67 on 100% FIO2. Her base excess is 32. On admission 2 hours ago, her pH was 7.23, PCO2 of 142, and a pO2 of 90. Her chest x-ray shows a diffuse opacity in the right lower hemithorax. CT scan done here shows a large pleural effusion with compression of the lower and middle lobes. She has emphysematous changes and a significant amount of diffuse infiltrative processes in both lungs. I do not see significant mediastinal lymphadenopathy. On top of the infiltrates, there looks to be considerable fibrosis medially. Dr. Melgar informs me that this is old sarcoidosis. She has a small left pleural effusion. There is no pericardial effusion. She has a huge pulmonary artery measuring at least 4.[address] done without contrast. It looks as though she has a large left atrium, a large right ventricle. Her spleen is not enlarged. Her stomach looks to have quite thickened sifuentes. The pancreas looks normal. IMPRESSION: 1. Large pleural effusion. 2. Congestive heart failure. 3. Pulmonary hypertension. 4. Severe CO2 retention. 5. Chronic obstructive pulmonary disease. 6. Atrial fibrillation, on Eliquis. 7. History of sarcoidosis. 8. Hypercapnic respiratory failure. 9. Gastroesophageal reflux disease (GERD). 10. Possible gastric mass, question linitis plastica. 11. Mental status changes, unresponsive coma. PLAN AND DISCUSSION: Echocardiogram done with me at the bedside showed her to have a normal systolic function. She has a pulmonary artery pressure of at least 50 with moderate mitral regurgitation and tricuspid regurgitation. There is no pericardial effusion. Her most pressing problem now is her mental status changes. I will place a chest tube to drain her. As she is unconscious and as her CO2 is 140, I will not sedate her. It should be noted that after placement of the chest tube that her tidal volume went from the low 100s to 300 on the BiPAP. Maybe now that we can get some ventilation, her mental status will improve from her CO2 narcosis. Will send the specimens for the requisite studies of cytologies, hematologies, chemistries, and bacteriologies.
--- NOTE | 2019-07-16 07:58 | RO ---
DATE OF PROCEDURE: 07/15/2019 PREPROCEDURE DIAGNOSIS: Right pleural effusion. POSTPROCEDURE DIAGNOSIS: Right pleural effusion. PROCEDURE: Insertion of a right lateral chest tube. SURGEON: Dash Mathis MD CLEANER FURNITURE: ANESTHESIA: FINDINGS: 1400 mL of clear jessa fluid was eluded from the chest. It was sent for requisite studies of cytologies, hematologies, chemistries, and bacteriologies. DESCRIPTION OF PROCEDURE: As patient was unconscious and nonresponsive, Versed was not used. Patient was prepped and draped in the usual sterile fashion. An incision was made over the approximate 7th intercostal space. A tunnel was created in the chest. A #24 chest tube was placed without difficulty. The above-findings were noted. Chest tube was secured to the chest wall. Patient tolerated the procedure well, and a chest x-ray is pending.
[2019-07-16] MEDS: ALBUTEROL SULFATE 2.5 MG/0.5 ML INH NEB SOLN INH PRN ×3 (08:04→19:49)
--- NOTE | 2019-07-16 08:14 | ECHO ---
DATE OF STUDY: 07/15/2019 REFERRING PHYSICIAN: Yoko Romo MD INDICATION: Peripheral edema (localized). HEIGHT: 155 cm. WEIGHT: 53 kg. 2D MEASUREMENTS: Left atrium: 3.5 cm Aortic root: 3.0 cm Aortic annulus: 1.8 cm Ventricular septum: 1.03 cm Posterior wall: 1.04 cm Left ventricle diastole: 3.8 cm Inferior vena cava: 1.7 cm with marked reduction of respiratory variation DOPPLER MEASUREMENTS: Trace aortic regurgitation. No aortic stenosis. Aortic valve velocity: 207 cm/s LVOT velocity: 153 cm/s LVOT VTI: 27.0 cm Very mild mitral regurgitation. Mitral E velocity: 68.7 cm/s Mitral A velocity: 79.8 cm/s Mitral deceleration time: 236 ms Moderate tricuspid regurgitation. Estimated right ventricle systolic pressure: 70 mmHg assuming a right pressure of 20 mmHg Mild pulmonic regurgitation. Pulmonary acceleration time: 63 ms MITRAL ANNULAR TISSUE DOPPLER: E prime septal: 4.2 cm/s E prime lateral: 5.1 cm/s DESCRIPTION: Rhythm appeared to be predominantly AV paced rhythm or perhaps sinus rhythm/ventricular paced. This was a 2D, M-mode, color flow Doppler and pulse wave Doppler examination and included mitral annular tissue Doppler. CONCLUSIONS: 1. Normal left ventricle internal dimensions and wall thickness. Normal regional left ventricle (LV) wall motion and wall thickening. No paradoxical septal motion was appreciated by visual inspection. Hyperdynamic LV systolic function. Left ventricular ejection fraction (LVEF) 70% by visual estimate. Grade 1 LV diastolic dysfunction (impaired relaxation filling pattern). Moderate partial effusion of the early rapid filling phase with atrial filling phase at 76 beats per minute (BPM). 2. Suggestive of severe elevation of estimated right ventricle systolic pressure (70 mmHg assuming a right pressure of 20 mmHg). Normal right ventricle size. Appearance of mild hypertrophy of the right ventricle free wall. Normal right ventricle systolic function. Mild partial flattening of the curvature of the ventricular septum in both diastole and systole in keeping with both volume and pressure overload of the right ventricle. Structurally normal-appearing tricuspid leaflets. Moderate tricuspid regurgitation. Mild pulmonic regurgitation. Marked reduction of respiratory variation in inferior vena cava suggestive of elevated central venous pressure (estimated to be 20 mmHg). 3. Right pleural effusion (at least moderate). 4. No pericardial effusion. 5. Mild aortic valve sclerosis of a three-cuspid aortic valve. No aortic stenosis. Trace aortic regurgitation. 6. The presence of endocardial, atrial, and right ventricle pacemaker leads. MTDD
[2019-07-16 08:19] LABS: BLOOD UREA NITROGEN 19 MG/DL (7-18); CALCIUM LEVEL 7.9 MG/DL (8.8-10.2); CARBON DIOXIDE LEVEL 52 MEQ/L (21-32); CHLORIDE LEVEL 77 MEQ/L (98-107); CREATININE FOR GFR 0.71 MG/DL (0.55-1.30); GLOMERULAR FILTRATION RATE > 60.0 (>39); GLUCOSE, FASTING 118 MG/DL (70-100); MAGNESIUM LEVEL 2.3 MG/DL (1.8-2.4); PHOSPHORUS LEVEL 1.3 MG/DL (2.5-4.9); POTASSIUM SERUM 3.8 MEQ/L (3.5-5.1); SODIUM LEVEL 132 MEQ/L (136-145)
--- NOTE | 2019-07-16 08:20 | RO ---
DATE OF PROCEDURE: 07/15/2019 PREPROCEDURE DIAGNOSIS: Respiratory failure. POSTPROCEDURE DIAGNOSIS: Respiratory failure. PROCEDURE: Insertion of central venous triple-lumen catheter. The site is right subclavian vein. SURGEON: Dr. Hemal Melgar BOOT TURNER: ANESTHESIA: The procedure was performed emergently. DESCRIPTION OF PROCEDURE: After the right subclavian area was prepped and draped in the usual sterile manner, the right subclavian was easily cannulated with a large bore needle. In a modified Seldinger technique, a triple-lumen central venous catheter was easily advanced. Good venous return was obtained from all three ports. Each port was then flushed. The line was then sutured in place and a sterile dressing applied. Some mild ectopy was noted when the wire was in place that resolved spontaneously with the wire removed. Chest x-ray done immediately postprocedure showed the line to be in good position. No complications noted.
[2019-07-16] MEDS: SYMBICORT 80/4.5MCG INHALER 6GM INH SCH ×2 (08:25→19:49)
--- NOTE | 2019-07-16 08:25 | RO ---
DATE OF PROCEDURE: 07/15/2019 PREPROCEDURE DIAGNOSIS: Hypotension. POSTPROCEDURE DIAGNOSIS: Hypotension. PROCEDURE: Insertion of enteral arterial catheter. The site is right femoral artery. SURGEON: Dr. Hemal Melgar COVERAGE SPECIALIST: ANESTHESIA: The procedure was performed emergently. DESCRIPTION OF PROCEDURE: After the right femoral area was prepped and draped in the usual sterile manner, the right femoral artery was easily cannulated with a large bore needle. In a modified Seldinger technique, a 15-cm 5-Slovenian catheter was easily advanced. Good arterial flow was noted through the catheter. The line was then hooked to the monitor, and good arterial waveform was noted. The line was then sutured in place. Sterile dressing was applied. No immediate complications identified postprocedure.
--- NOTE | 2019-07-16 08:30 | CCN ---
DATE OF VISIT: 07/15/2019 Start time: 2209 Stop time: 2313 Approximately 10 minutes of this was spent with procedures. That leaves 54 minutes of critical care time at the bedside not including procedures. I was called emergently to attend Liv Caicedo, as she had had a witnessed respiratory arrest. She never lost a pulse. She was intubated by anesthesia. She was briefly hypotensive and was given phenylephrine by them. On my arrival, endotracheal tube was placed. Chest x-ray showed the tube to be in good position. Chest tube placed previously by Dr. Mathis in place and there was, what appears to be, pneumothorax, but most likely represents trapped lung due to her effusion. Initially, blood pressure 106 systolic. Central line was then placed by myself occupying less than 5-minutes' time. Chest x-ray showed the line to be in good position. She then developed significant hypotension with a systolic blood pressure in the 70s. This spontaneously resolved, blood pressure then 126 systolic without intervention. This lasted less than 2 minutes. She then had a witnessed grand mal seizure. This was witnessed by myself. It lasted less than 1 minute and resolved before she could be even given Ativan. Due to her hypotension, an A-line was placed in the right femoral artery. Both procedures are dictated under separate cover. This also occupied less than 5-minutes' time. On a pressure-regulated volume control (PRVC) mode, tidal volume 350, positive end-expiratory pressure (PEEP) of 5, FiO2 of 50, percent saturations are 99%, blood gas is pending. Intermittently, she was semiarousable, but clearly postictal after her seizure. Neurologically, she has roving eye movements, pupils are small. No obvious jugular venous distention (JVD). Trachea is midline. Chest shows reasonable air entry bilaterally. No convincing rhonchus or wheeze. Cardiac exam is intermittently tachycardic. Murmur is unchanged. Peripheral pulses diminished but palpable. There is persistent 2-3+ edema. Abdomen is soft. There are active bowel sounds. Neuralgically, she is essentially unresponsive. She was given sedatives by anesthesia. MOST PRESSING PROBLEMS REQUIRING MY IMMEDIATE PRESENCE AT THE BEDSIDE: Respiratory arrest, now intubated. Grand mal seizure. Hypotension. Intermittent arrhythmia with question of ventricular tachycardia. Pacemaker dependent at times. Underlying asthma. History of sarcoid. Right pleural effusion, status post tube thoracostomy. At this point, she is quite critically ill. Given her seizure activity and her altered mental status on presentation, will obtain a CT scan of her head. I have spoken at length with the attending service, Dr. Esteves. At this point, she is critically ill with multiorgan dysfunction. We await the outcome of the above. MUSA
--- NOTE | 2019-07-16 08:40 | REP ---
REASON: Right-sided thoracotomy tube placement. COMPARISON: , the latest prior. The technique utilized in obtaining the radiograph has magnified the cardiac silhouette and accentuated the interstitial markings. There is cardiomegaly accentuated by technique. There is a right-sided thoracotomy tube in place, the tip is in the right midlung zone region. There is no evidence of a pneumothorax. There is rather heavy interstitial fibrotic change. There is a suspected new patchy pleural-based opacity in the left lower lobe. There is mild chronic bilateral CP angle blunting. There is no change in the osseous structures or dual-chamber bipolar pacemaker device. IMPRESSION: 1. Status post thoracotomy tube, as described above. 2. Chronic lung field changes, as described above. 3. Cardiomegaly. 4. Suspected new left pleural-based opacity. Correlate clinically with appropriate followup. Electronically Signed by Buddy Stoner DO 07/16/2019 08:40 A
--- NOTE | 2019-07-16 08:53 | REP ---
REASON: Followup. COMPARISON: 07/15/2019 at 6 p.m. Today's exam 07/15/2019 at 1018 p.m. Since the last examination, an endotracheal tube has been placed, the tip of which is in satisfactory position at the level of the aortic knob. The right-sided thoracotomy tube is unchanged. There is a small right-sided pneumothorax representing a change. Left midlung zone pleural-based opacity is again noted. There is interstitial fibrosis status quo. The dual-chamber bipolar pacemaker device is unchanged. The osseous structures are unchanged. IMPRESSION: Interim development of small right pneumothorax. Satisfactory position of the endotracheal tube. Other findings as described above. Electronically Signed by Buddy Stoner DO 07/16/2019 09:18 A
--- NOTE | 2019-07-16 08:53 | REP ---
REASON: Followup. COMPARISON: 07/15/2019 at 10:16 p.m. this examination, 07/15/2019 10:44:23 p.m. Since the last examination, a right-sided subclavian catheter has been placed, the tip of which is at the superior vena cava/right atrial junction, in satisfactory position. The right-sided pneumothorax is unchanged. The chronic lung changes are unchanged. There are no other significant changes. Electronically Signed by Buddy Stoner DO 07/16/2019 09:18 A
[2019-07-16] MEDS ORDERED: EZETIMIBE 10 MG TAB (ZETIA) PO SCH (09:00)
[2019-07-16] MEDS ORDERED: ACETAZOLAMIDE 500 MG IV SCH (09:00)
[2019-07-16] MEDS ORDERED: DIGOXIN INJ 0.5 MG/2 ML AMP (J1160) IV ONE ×4 (09:30→14:45)
--- NOTE | 2019-07-16 09:31 | REP ---
REASON: Followup. COMPARISON: 07/15/2019 at 10:44 p.m. The technique utilized in obtaining the radiograph has magnified the cardiac silhouette and accentuated the interstitial markings. The right-sided pneumothorax is again noted, status quo. Since the last examination, a nasogastric tube has been placed, the tip of which is beyond the parameters of the radiograph with the proximal port seen in the region of the stomach fundus. The pleural-based left midlung zone opacity appears less dense and smaller. There are no other significant lung field changes. The central venous catheter is unchanged. The endotracheal tube is unchanged. The osseous structures are unchanged. IMPRESSION: Status post nasogastric tube placement as described above. Other findings as described above. Electronically Signed by Buddy Stoner DO 07/16/2019 10:37 A
[2019-07-16] MEDS ORDERED: AMIODARONE 200 MG TAB (PACERONE) As Ordered ONE (09:35)
[2019-07-16] MEDS ORDERED: DIGOXIN INJ 0.5 MG/2 ML AMP (J1160) As Ordered ONE (09:36)
--- NOTE | 2019-07-16 09:48 | ECGEPIP ---
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 No prior ECG available for comparison at the time of interpretation. Electronically Signed on 07-16-2019 9:48:06 EDT by Rick Gonzales
[2019-07-16] MEDS: ASPIRIN 300 MG SUPP PR SCH (09:50)
[2019-07-16] MEDS: PANTOPRAZOLE 40MG VIAL (C9113 PER 1) IV SCH (09:50)
[2019-07-16] MEDS: CHLORHEXIDINE GLUCONATE 0.12 % 15ML UDC (PERIDEX ORAL RINSE) MT SCH ×2 (09:51→20:50)
--- NOTE | 2019-07-16 09:54 | CCN ---
DATE OF SERVICE: 07/15/2018 START TIME: 824 STOP TIME: 908 I again attended Liv Caicedo. The patient has been examined and chart reviewed. I have spoken at length with the nurse at the bedside, as well as Dr. Gonzales from cardiology, this morning. She remains intubated, sedated, mechanically ventilated. She does overbreathe the ventilator. Maximum temperature (Tmax) overnight 99.9, blood pressure 80s to the 140s, and she is now on low-dose Levophed. Heart rate anywhere from 70s to the 150s, basically atrial fibrillation with bursts of rapid ventricular response. Respiratory rate 10-14. She is making reasonable urine. She had an additional approximately 1 liter to 1.5 liter of urine out on top of her pleural fluid being drained. Chest x-ray shows lines and tubes in good position. She still has hydropneumothorax consistent with a trapped lung. Most recent laboratories show a sodium of 132, potassium of 3.8, chloride 77, CO2 of 52, BUN 19, creatinine 0.71, phosphorus 1.3, albumin 2.0, glucose of 118. White blood cell count is pending. Blood gas done on a pressure-regulated volume control (PRVC), rate of 10, tidal volume 300, PEEP of 5, FIO2 of 50%, pH 7.564, PCO2 of 56.8, pO2 of 54.9. On examination, she is arousable to voice. I do believe she intermittently follows commands. Pupils are small. Trachea is in the midline. Chest is fairly clear anteriorly. Mildly diminished at the bases. No convincing rhonchus, wheeze, or rub. Cardiovascular examination: Is tachycardic, irregularly irregular. Peripheral pulses are diminished but palpable. Her 2-3+ edema is unchanged. Abdomen: Soft. There are active bowel sounds. Extremities: Without cyanosis or clubbing. Neurologically, she does move all extremities and although somewhat sedated does intermittently follow commands. The most pressing problems requiring my immediate presence at the bedside: 1. Respiratory failure requiring mechanical ventilatory support, mainly hypoxemic. 2. Chronic hypercapnic respiratory failure, now with a significant combined alkalotic component. 3. Cor. pulmonale. 4. Underlying asthma. 5. Atrial fibrillation with rapid ventricular response. At this point, we will decrease her mechanical ventilatory support as able. She overdrives much of it herself, and her metabolic/electrolyte status is driving much of this. Nephrology is involved and has started Diamox. Certainly, that will assist with her respiratory compensation aspect, as well. I have spoken with Dr. Gonzales. She was scheduled for a pacemaker battery change tomorrow. At this point in view of her uncontrolled ventricular response, I do believe further attention from that standpoint is warranted, and he will add medications to that effect. For now, we will continue her nebulizer therapy for underlying asthma. She also has a history of sarcoid, which is basically inactive. Ulcer and deep venous thrombosis (DVT) prophylaxes are in place. We will begin enteral feeds today. At this point, she has multiorgan dysfunction and is quite critically ill. Her prognosis is guarded at best. Will proceed as outlined above. I left the bedside at 0909 hours. A total of 44 minutes of critical care time delivered at the bedside, not including procedures.
[2019-07-16] MEDS: AMIODARONE 200 MG TAB (PACERONE) PO SCH ×3 (10:07→20:51)
--- NOTE | 2019-07-16 11:17 | IPN ---
DATE OF SERVICE: 07/16/2019 Mrs. Caicedo is now intubated. Evidently, she suffered a respiratory arrest around 10 o'clock last night requiring intubation. She is more responsive today than she was yesterday. Today, she responds to noxious stimuli, including opening her eyes and a sternal rub. She is moving both arms. She did not move her lower extremities. She shakes her head. Her vital signs show a maximum temperature (Tmax) of 99.9 with a heart rate that is now in the 150s in atrial fibrillation. Her respiratory rate on the ventilator is 18 with a ventilatory support breath rate of 10. Total volume is 350 on the ventilator with an FIO2 of only 25%. She is in 5 cm of water PEEP, and she is on pressure-regulated volume control (PRVC) mode. With that, she is 95% saturated. Her blood pressure by arterial line is 102/48 to 93/49. Intake and output over the past 24 hours has been recorded as 2670 in and 2670 out for equality. She has put out 1730 mL from the chest tube yesterday, including the initial 1400 mL. It has been that she has put out 190 mL. She weighs 47.7 kg today compared to 52.5 kg yesterday. PHYSICAL EXAMINATION: Shows scattered rhonchi throughout both lungs anteriorly and laterally. I cannot sit her up. She is intubated. Abdomen is soft, nontender, but she does have a quite decreased level of consciousness. Bowel sounds are positive but hypoactive. Cardiovascular examination: Shows a tachycardia. She still has the systolic murmur at the apex. I cannot feel her point of maximal impulse (PMI). Extremities: Show 2-3+ pretibial edema, slightly improved over yesterday. There is no calf tenderness that I can elicit, and there is no differential swelling of the upper extremities. Her skin is better perfused without mottling of the knees. Her skin is warm and dry. Neck is supple. There is no jugular venous distention, no subcutaneous emphysema. Trachea is midline. Mouth shows her to be intubated with pink moist mucous membranes. Eyes show her pupils still to be pinpoint. She resists opening her eyes by shaking her head. Neurological: Shows her able to move the upper extremities. I did not detect lower extremity movement to a sternal rub. Psychiatric: Shows her to be unconscious. INVESTIGATIONS: Her white count today is still pending. Her electrolytes show a sodium of 132, potassium 3.8, with a chloride of 77, and a total CO2 of 52. BUN and creatinine are 19 and 0.71 with a glucose of 118 and a calcium of 7.9. Magnesium is 2.3. Her blood gases this morning show a pH of 7.56, a PCO2 of 56, a pO2 of 55 on the 25% FIO2 and the base excess of 24.8. Her pleural fluid shows a pH of 7.58 with a glucose of 105 and a total protein of 3.2 and an LDH of 82 with respective total proteins and LDHs of 7.6 and 212. She has 397 white cells, 95% of which are lymphocytes or mononuclears. This looks, therefore, like a transudative lymphocytic or monocytic effusion, which I would conjecture to be secondary of cardiac origin. Her chest x-ray today done portably shows an apical air space at the cupula of the right lung. There is an inspiratory process in the right lower lobe. Chest tube looks to be in good place. Costophrenic angles are fairly sharp. She has what looks to be diffuse pattern of cephalization of vessels or a reticular infiltrative pattern throughout. IMPRESSION: 1. A transudative pleural effusion drained with a chest tube. 2. Apical air space from drainage. 3. Respiratory failure. 4. Metabolic alkalosis in response to chronic hypercarbia. 5. Atrial fibrillation with rapid ventricular response. 6. Congestive heart failure (CHF), more likely cor. pulmonale. 7. History of sarcoidosis. 8. Gastroesophageal reflux disease (GERD). 9. Possible gastric mass, question linitis plastica. PLAN AND DISCUSSION: As far as the chest tube is concerned, I will increase the suction to minus 40. I am very sure that part and parcel of the apical air space is air entry during the chest tube insertion. She may also have lung entrapment, but I would have expected the lung entrapment to be manifested in the lower hemithorax rather than the cupula. I do note that she is now on Diamox for her metabolic alkalosis. That will need to be corrected if we were to get her off the ventilator. Cardiology is addressing the rapid atrial fibrillation. I do note that she is on amiodarone.
[2019-07-16] MEDS: aMILoride 5 MG TAB NG SCH ×2 (11:18→20:51)
[2019-07-16] MEDS: ACETAZOLAMIDE 500 MG IV SCH ×2 (11:19→18:01)
[2019-07-16] MEDS ORDERED: AMIODARONE HCL 150 MG in IV 1 EA IV STA ×2 (11:30→14:36)
[2019-07-16 11:34] LABS: BASO % 0.1 % (0.0-1.0); EOS % 0.1 % (0.0-3.0); HEMATOCRIT 34.5 % (36.0-47.0); HEMOGLOBIN 10.2 g/dl (12.0-15.5); LYMPH # 1.1 10^3/uL (1.5-5.0); MEAN CORPUSCULAR HEMOGLOBIN 26.8 pg (27.0-33.0); MEAN CORPUSCULAR HGB CONC 29.6 g/dl (32.0-36.5); MEAN CORPUSCULAR VOLUME 90.8 fl (80.0-96.0); MONO # 1.4 10^3/uL (0.0-0.8); MONO % 8.8 % (0.0-5.0); NEUTROPHILS # 13.1 10^3/uL (1.5-8.5); PLATELET COUNT, AUTOMATED 213 10^3/uL (150-450); WHITE BLOOD COUNT 15.8 10^3/uL (4.0-10.0)
--- NOTE | 2019-07-16 12:37 | IPNPDOC ---
Text Note Date of Service The patient was seen on 07/16/19. NOTE Subjective: Patient is a 74, her female with a PMHx A. fib (on ), CHF (unknown EF), Symptomatic Betito s/p PM (2016), HTN, DLP, Chronic hypoxic res piratory failure (on 3L O2), Moderate Persistent Asthma, Restrictive lung disease 2/2 Sarcoidosis, Allergic Rhinitis and GERD who was transferred from [facility] for right-sided pleural effusion. Patient has a recent history of right-sided pleural effusion on 05/30/2019. At that time, she had 990 mL of fluid removed that was consistent with trasudative etiology. Cytology and cell block were negative for malignancy. Fluid accumulation was thought to be from congestive heart failure. Patient was advised to follow-up with her outpatient pantograph i engraver, Dr. Chandler, and continue with her diuretic regimen. Patient has presented to [facility] for worsening shortness of breath and confusion. In the ER, patient had imaging completed that had revealed a moderate to large right-sided pleural effusion and a hazy left lower lobe opacity. Patient blood test run that showed pH 7.2/pCO 140. Providers had contacted [facility] for transfer for drainage of effusion and BiPAP nicholson pport. Patient was placed on BiPAP and transferred to [facility] on 07/14. Upon arrival patient is oriented to person, place and time. Patient had a chest tube placed 07/[address] Mathis. Patient was kept on BiPAP and Dr. Melgar was called on consultation. Overnight, patient had improvement of ABG. Patient had gone into respiratory arrest was ultimately intubated that night (07/14). While having a central line placed. Patient experienced a seizure episode and was started on Keppra. Neurology and nephrology were consulted. Patient was seen and examined at the bedside. Patient remains intubated and sedated. Objective: Vitals (See below) General: Lying in bed, HEENT: NC, AT, + ET tube CVS: IrIr, +S1S2 Lungs: Improved aeration noted bilaterally, no wheezing / rhonchi / significant crackles Abdomen: Soft, nondistended and nontender Extremities: 1-2+ pitting edema bilaterally, - Calf tenderness Neuro: Moving all four extremities to pain / touch Assessment and plan: Acute on Chronic hypercapnic respiratory failure on Chronic hypoxic respiratory failure - likely 2/2 recurrent R sided pleural effusion - possibly 2/2 congestive heart failure in the setting of restrictive lung disease 2/2 sarcoidosis - Chronically uses 3 L of oxygen continuously - Patient recently had right-sided thoracentesis completed 05/2019 with ~1000cc fluid removal; transudative - Serial ABGs have shown improvement - CXR 07/14 at [facility] revealed moderate-large R pleural effusion, hazy LLL opacity, L sided pacemaker - CT chest 07/14: 1. Bilateral pleural effusions, as described above. 2. Possible bilateral hilar adenopathy, as described above. 3. Bilateral airspace and interstitial opacities increased from the prior exam suspicious for pneumonia/edema. 4. Other findings and limitations as described above. - s/p intubation 07/14; currently on ventilator - Pulmonology on consultation; appreciate their input Recurrent R sided pleural effusion - possibly 2/2 congestive heart failure, unlikely 2/2 pneumonia - No leukocytosis noted, No lactic acidosis - Physical reveals decreased lung sounds at R lung field and b/l LE pitting edema - CXR shows improvement of R effusion - Troponin at [facility] was < 0.01; repeat x3 remeain negative - EKG reveals paced rhythm from [facility] - s/p Chest tube 07/[address] Mathis - ECHO: Evidence of R sided heart failure without pericardial effusion - Cardiothoracic surgery on consultation; appreciate their input Respiratory acidosis with compensatory metabolic alkalosis initially, with shift to respiratory alkalosis without reduction in compensatory metabolic alkalosis from chronic hypercarbia - Vent settings have been adjusted and patient has been sedated - Will DC Furosemide - c/w Acetazolamide - Pulmonology and Nephrology on consultation Hemodynamic instability - possibly 2/2 A. fib with RVR - Hx of HTN - s/p Diltiazem - Will hold Furosemide - s/p Central line placement and pressor support with Levophed Seizure episode - likely 2/2 alkalosis - Moving all four extremities - CT head 07/15: 1. Mild hyperdensities in the periventricular white matter which are consistent with chronic small vessel ischemic disease. 2. No abnormal enhancing lesions. - c/w neuro checks - Has been started on Keppra; discussion with Neurology this AM; seizures likely 2/2 acid-base abnormalities, will c/w keppra, however will consider stopping o nce acid-base abnormalities resolve - Neurology on consultation; appreciate their input A. fib with RVR - Hemodynamically unstable - Discussed with Cardiology; has been loaded with Digoxin and Amiodarone - s/p Diltiazem (re: Hypotension) - Will hold full anticoagulation with Eliquis (re: Chest tube placement and scheduled battery replacement) - Cardiology called on consultation Acute metabolic encephalopathy - likely 2/2 acid-base abnormalities / pCO2 retention - Again no focal neurologic deficits - CT head 07/14: Completed a [facility] does not reveal any acute abnormalities - Will continue to correct acid-base / pCO2 (see above) Symptomatic Bradycardia s/p PM (2016) - Patient has had pacemaker placed by Dr. Gonzales - Discussed with Dr. Gonzales schedules battery replacement for pacemaker on 07/17/19 - Patient is to remain off pelvis from today and nothing by mouth Wednesday night for PM battery replacement on 07/17/2019 - Dr. Gonzales has been consulted DLP - c/w Ezetimibe Moderate Persistent Asthma /Restrictive lung disease 2/2 Sarcoidosis - See above s/p Hypomagnesemia Allergic Rhinitis GERD - c/w Protonix IV DVT prophylaxis - c/w Heparin - Eliquis on hold (re: Chest tube placement and PM battery exchange on 07/17/2019) VS,Fishbone, I+O VS, Fishbone, I+O Laboratory Tests 07/15/19 15:58 07/16/19 01:20 07/16/19 05:09 07/16/19 11:26 Vital Signs Date Time Temp Pulse Resp B/P (MAP) Pulse Ox O2 Delivery O2 Flow Rate FiO2 07/16/19 11:13 160 07/16/19 11:00 24 89/63 (72) 95 Ventilator 25.0 112/61 07/16/19 08:05 25 07/16/19 08:00 99.4 I&O- Last 24 Hours up to 6 AM 07/16/19 05:59 Intake Total 450 ml Output Total 3115 ml Balance -2665 ml NOAH BELLAMY MD July 16, 2019 12:37
[2019-07-16] MEDS ORDERED: POTASSIUM PHOSPHATE INJ 20 MMOL in D5W 250 ML IV ONE (14:30)
[2019-07-16 15:33] LABS: ABG BASE EXCESS 21.4 (-2.0-2.0); ABG HCO3 46.1 MEQ/L (22.0-26.0); ABG O2 SATURATION 94.9 % (95.0-99.0); ABG PARTIAL PRESSURE CO2 51.6 mmHg (35.0-45.0); ABG PARTIAL PRESSURE O2 67.8 mmHg (75.0-100.0); ABG STANDARD HCO3 45.7 MEQ/L (22.0-26.0); ABG TOTAL CO2 47.7 MEQ/L (23.0-31.0); ABG pH (ARTERIAL) 7.569 UNITS (7.350-7.450)
[2019-07-16] MEDS: MORPHINE 2 MG/ML 1ML VIAL (J2270) IV PRN (16:22)
--- NOTE | 2019-07-16 16:33 | CR ---
DATE OF CONSULTATION: 07/16/2019 CONSULTATION REPORT FOR: Dr. Hemal Melgar REASON FOR CONSULTATION: Paroxysmal atrial fibrillation with rapid ventricular response. HISTORY OF PRESENT ILLNESS: Liv Caicedo is a pleasant 74-year-old woman who I met for the first time in consultation in my office 07/14/2019 for the purposes of arranging pacemaker pulse generator change. Her regular customer account manager is Dr. Moises Chandler. The patient has a history of paroxysmal atrial fibrillation with sick sinus syndrome/tachycardia bradycardia syndrome and is status post [employer] dual-chamber pacemaker many years ago. Her device reached elective replacement indicator (AIDEE). She is actually scheduled to have pacemaker pulse generator changed for tomorrow (07/17/2019). As an outpatient, she has been maintained on Eliquis, aspirin, diltiazem ER 240 mg/d, and propafenone 325 mg twice a day. She has chronic peripheral edema and right-sided heart failure and is maintained on furosemide 40 mg daily as an outpatient. She presented to [facility] (ER) yesterday, 07/15/2019, with worsening shortness of breath and worsening peripheral edema in her legs. She was found to have a significant right-sided pleural effusion. She was therefore transferred to [facility] for further management. She has systemic hypertension, dyslipidemia, chronic hypoxic respiratory failure for which she is on home oxygen at three liters provided by nasal prongs, asthma, reactive airways disease secondary to sarcoidosis, sarcoidosis, gastroesophageal reflux disease (GERD), and allergic rhinitis. She has had a previous right-sided pleural effusion and is status post prior drainage. On this hospitalization, she was found to be in respiratory failure and she was placed on bilevel positive airway pressure (BiPAP) at [facility] prior to transfer. While in the hospital here at [facility], she went into atrial fibrillation with rapid ventricular response. She went from being on BiPAP to being intubated and ventilated. She developed hypotension with atrial fibrillation with rapid ventricular response and is currently on Levophed IV. At the moment, she is intubated, ventilated and sedated, and is unable to provide any additional history or clinical information for that reason. PAST MEDICAL HISTORY: 1. Paroxysmal atrial fibrillation, sick sinus syndrome/tachycardia bradycardia syndrome, status post dual-chamber pacemaker ([employer]). 2. Dyslipidemia. 3. Chronic hypoxic respiratory failure on oxygen at three liters per minute by nasal cannula. 4. Asthma. 5. Sarcoidosis. 6. Allergic rhinitis. 7. Gastroesophageal reflux disease (GERD). PAST SURGICAL HISTORY: 1. She has had a previous right-sided thoracocentesis 05/30/2019 for which cytology came back negative. 2. She has previous left and right cataract surgeries. 3. Previous surgery for a left humerus fracture and previous surgery for a left ankle fracture. 4. Status post appendectomy and tonsillectomy. FAMILY HISTORY: Mother and father both had heart disease. No family history of malignancies. SOCIAL HISTORY: No use of tobacco or illicit drugs. Occasional social intake of alcohol. Lives with her . 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 Gets around with the assistance of a walker or a cane. REVIEW OF SYSTEMS: Review of systems could not be obtained directly from the patient at this time because she is presently intubated, ventilated and sedated, and unable to answer questions. PHYSICAL EXAMINATION: Pleasant, mildly underweight, elderly woman who appears her chronologic age, who is intubated, ventilated and sedated. Height 54 inches, weight 47.7 kg, body mass index (BMI) 18.1. Temperature 99.0. Pulse 99 (irregularly irregular), respiratory rate 16 on the ventilator, blood pressure 105/52 (on Levophed IV), blood pressure by arterial line 102/51. Oxygen saturation 92% on the ventilator with FiO2 of 25%. No conjunctival pallor, scleral icterus, or xanthomas. Oral mucosa is moist and without pallor or cyanosis. Endotracheal tube present. Jugular venous pulsations were at 8 cm. Trachea midline. No palpable thyroid. No clubbing, nailbed cyanosis or splinter hemorrhages. No significant pallor or icterus. Unable to presently assess the patient's orientation or mood and affect because she is presently sedated on the ventilator. Curvature of the spine appears normal. Unable to assess gait as the patient is intubated and ventilated and sedated. Unable to assess motor strength for the same reason. No fasciculations or tremors. Respiratory expansion effort on the ventilator was good. No crackles or wheezes. A right-sided chest tube present. Pacemaker in situ over the left pectoral region. No left parasternal lifts, heaves, thrills or palpable heart sounds. First heart sound variable. Second heart sound was loud. Grade 2 pansystolic murmur over the lower left parasternal border. Carotids normal in volume and contour and without bruits. No palpable abdominal aorta. No abdominal bruits. Femoral pulses normal. Pedal pulses normal. 7 mm of pitting edema was present at mid tibia level bilaterally. Abdomen was soft, nontender with normal bowel sounds. No organomegaly. Liver span 10 cm from midclavicular line. Stool for occult blood not presently indicated. INVESTIGATIONS: Echocardiogram Doppler 07/15/2019 has been reported under a separate cover. It showed normal left ventricle internal dimensions and wall thickness with normal regional LV wall motion and wall thickening. No paradoxical septal motion appreciated by visual inspection. Left ventricle was hyperdynamic with LVF estimated to be 70%, grade 1 LV diastolic dysfunction. Moderate partial effusion of the early rapid filling phase with atrial filling phase at 76 bpm. Suggestive of severe elevation of estimated right ventricle systolic pressure (70 mmHg assuming rate pressure of 20 mmHg). Normal RV size and systolic function. Appearance of mild right ventricular hypertrophy. Mild partial flattening of the curvature of the ventricular septum in both diastole and systole in keeping with both volume and pressure overload of the right ventricle. Structurally normal-appearing tricuspid leaflets. Moderate tricuspid regurgitation. Mild to moderate regurgitation. Marked reduction of respiratory variation in inferior vena cava suggestive of elevated central venous pressure (estimated to be 20 mmHg). Right pleural effusion (at least moderate). No pericardial effusion. Mild aortic valve sclerosis. No aortic stenosis. Trace aortic regurgitation. The presence of endocardial, right atrial, and right ventricle pacemaker leads. CT chest 07/16/2019 reported bilateral pleural effusions, possible bilateral hilar adenopathy. Bilateral airspace disease and interstitial opacities suspicious for pneumonia/edema. Portable chest x-ray 07/16/2019 reported status post nasogastric tube placement. Right-sided pneumothorax status quo. Nasogastric tube with tip beyond the parameters of the radiograph with the proximal port seen in the region of the stomach fundus. Pleural-based left mid lung zone opacity appears less dense and smaller. Central venous catheter unchanged. Endotracheal tube unchanged. I have also viewed the chest x-ray myself and there is the presence of a [employer] dual-chamber pacemaker over the left upper region with the atrial lead in the right atrial appendage position and the right ventricle lead at the right ventricle apex position. ECG shows sinus rhythm with PACs, P-synchronous ventricular paced rhythm. LABORATORY DATA: Laboratory work 07/16/2019 was reviewed: WBC 15.8, hemoglobin 10.2, hematocrit 34.5, platelets 213. Lactic acid 1.2, sodium 132, potassium 3.8, chloride 77, CO2 52, BUN 19, creatinine 0.71, estimated GFR greater than 60, glucose 118, calcium 7.9, phosphorus 1.3, magnesium 2.3, albumin 2.0. ASSESSMENT AND PLAN: 1. Paroxysmal atrial fibrillation. The patient has a long history of paroxysmal atrial fibrillation with sick sinus syndrome/tachycardia bradycardia syndrome. With her severe illness, she has slipped back into atrial fibrillation with a rapid ventricular response despite being on diltiazem 240 mg daily and use of propafenone up until this hospitalization. With the rapid ventricular response, she has also become hypotensive for which she has been placed on Levophed. I have ordered several doses of IV digoxin. I have cautiously given her amiodarone 150 mg IV over 30 minutes. I also ordered a loading dose of amiodarone 400 mg per nasogastric (NG) tube three times a day. Since I am using amiodarone, she will not be restarted on propafenone. At present, the Eliquis in on hold while we await pacemaker pulse generator change. Diltiazem was discontinued in large part because of hypotension requiring Levophed as well as its contribution to peripheral edema and it has not been effective at least as it served for rate control during this hospitalization. 2. Pacemaker battery depletion. The plan will be to perform a pacemaker pulse generator change once the patient has stabilized during this hospitalization. Her device is at elective replacement indicator (AIDEE). 3. Pacemaker in situ. As per pacemaker battery depletion category above. 4. Right heart failure. The patient appears to be decompensated at the present time. She has hyponatremia. She had diuresed net negative 2270 mL for the time that she was at [facility] yesterday. Diuretics are presently on hold. Once the patient is off Levophed, she may be considered for reintroduction of oral diuretic. She has severe pulmonary hypertension as noted on the echocardiogram as well as moderate tricuspid regurgitation. 5. Systemic hypertension. At the moment, the patient is having issues with hypotension requiring Levophed IV. As noted above, I discontinued diltiazem. Her diuretics are presently on hold. We will follow with you.
[2019-07-16] MEDS ORDERED: NS 500 ML IV ONE (19:30)
[2019-07-16] MEDS: KCL 10MEQ/100ML SWI (KRUN) 10 MEQ in IV 1 EA IV SCH ×2 (19:41→20:51)
[2019-07-16 20:07] LABS: ALBUMIN 1.9 GM/DL (3.2-5.2); CALCIUM LEVEL 7.6 MG/DL (8.8-10.2); CREATININE FOR GFR 1.04 MG/DL (0.55-1.30); GLOMERULAR FILTRATION RATE 54.8 (>39); PHOSPHORUS LEVEL 3.6 MG/DL (2.5-4.9); POTASSIUM SERUM 3.6 MEQ/L (3.5-5.1)
--- NOTE | 2019-07-16 21:03 | ECGEPIP ---
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 Order Number: [id number] Reading MD: Rick Gonzales Measurements Intervals Paige Rate: 80 P: MI: 0 QRS: -63 QRSD: 179 T: 118 QT: 454 QTc: 526 Interpretive Statements Sinus rhythm with PACs, Mostly P-synchronous ventricular paced rhythm, Some AV sequential paced beats. Electronically Signed on 07-16-2019 21:02:47 EDT by Rick Gonzales
[2019-07-16] MEDS ORDERED: NS 1,000 ML IV SCH (21:30)
[2019-07-16] MEDS: propofoL 1,000 MG in IV 1 EA IV SCH ×3 (22:01)
--- NOTE | 2019-07-16 23:43 | CR ---
DATE OF CONSULTATION: 07/16/2019 REQUESTING PHYSICIAN: Dr. Elba Esteves CONSULTING PHYSICIAN: Dr. Gamboa REASON FOR CONSULTATION: Management of fluid overload in this patient with metabolic alkalosis. CHIEF COMPLAINT: Patient was transferred from [facility] yesterday for worsening shortness of breath and right-sided pleural effusion. HISTORY OF PRESENT ILLNESS: Liv Caicedo is a 74-year-old female with a normal renal function at baseline, history of atrial fibrillation anticoagulated with Eliquis, congestive heart failure, chronic hypoxic respiratory failure requiring oxygen, restrictive lung disease secondary to sarcoidosis, multiple other comorbidities as mentioned below. She initially presented to the [facility] with progressive shortness of breath. She was found to have right-sided pleural effusion. She was transferred to [facility] yesterday for higher level of care. She was acidotic with a pH of 7.2 and a pCO2 of 140. Patient was placed on bilevel positive airway pressure (BiPAP) and transferred to [facility]. At [facility], patient was in the intensive care unit (ICU). She was continued on BiPAP. Later on, she was seen by cardiothoracic (CT) surgery. She got insertion of the right-sided chest tube by Dr. Mathis. With improvement of the lung aeration after placement of chest tube and a combination of the use of BiPAP, patient's acidosis suddenly recovered from a pH of 7.29 to a pH of 7.62 with a pCO2 of 47 and a serum bicarbonate of 50. Patient was alkalotic. She became apneic at that time, and she also had seizure episode. Patient needed to be intubated. Nephrology service was called for further help in the management of this patient with severe metabolic alkalosis, seizures, and need to diurese the patient with history of congestive heart failure. I discussed the patient with Dr. Elba Esteves, and decision was made to hold the fluids, hold the intravenous (IV) Lasix diuretic, and give the patient a dose of acetazolamide 500 mg IV. I saw and evaluated the patient today morning at the bedside. She was in atrial fibrillation with rapid ventricular rate requiring IV and oral amiodarone dosages. Patient is hemodynamically stable at this time, not requiring pressors, and repeat arterial blood gas (ABG) showed in the morning that she was still alkalotic with a pH of 7.56. PAST MEDICAL HISTORY: Past medical history of congestive heart failure, atrial fibrillation and anticoagulation, history of symptomatic bradycardia status post pacemaker, hypertension, hyperlipidemia, chronic hypoxic respiratory failure on 3 liters of oxygen at home, restrictive lung disease secondary to sarcoidosis, allergic rhinitis, gastroesophageal reflux disease. PAST SURGICAL HISTORY: History of pacemaker [place] [address] Gonzales. She was scheduled for a battery replacement on 07/17/2019. Status post right-sided thoracentesis on 05/30/2019, and almost 1 liter of fluid was removed. Cytology was negative for malignancy. Status post bilateral cataract surgery. Status post left humerus fracture surgery and left ankle fracture. Status post appendectomy and tonsillectomy in the past. ALLERGIES: She is allergic to TYLENOL and peanut. FAMILY HISTORY: Unknown family history. At this time, patient is intubated and sedated. SOCIAL HISTORY: It was obtained from patient's chart. There is no history of illicit drug abuse or alcohol abuse or tobacco smoking. She lives with her . REVIEW OF SYSTEMS: I was unable to do any reliable review of systems. Patient is intubated and sedated. PHYSICAL EXAMINATION: General: Patient is intubated, sedated. Vital signs: Temperature is 99.2 degrees Fahrenheit, blood pressure 105/59, pulse is 90, respiratory rate of 18, saturating 94% on the vent with 25% FiO2. Head and neck exam: Patient has bitemporal wasting and seems cachectic. She has an endotracheal tube. Neck is supple. There is no jugular venous distention (JVD). Cardiovascular: S1, S2, slight tachycardia with irregular heart rate. 2+ edema of the bilateral lower extremities. Respiratory: Decreased breath sounds at the bases. She has a right-sided chest tube, which is draining transudative fluid. Abdomen: Is soft. Positive bowel sounds. Nontender. No organomegaly. Genitourinary: She has an indwelling Myles catheter at this time. Musculoskeletal: 2+ edema of bilateral ankles and feet. Central nervous system (SHRUB GROWER): Patient is intubated, sedated, and she moves extremities on painful stimuli. LAB REVIEW: CBC showed a WBC of 15.8, hemoglobin is 10.2, platelets are 213. INR is 0.95. Urinalysis done yesterday showed 2+ blood, no leukocyte esterase, no nitrite. ABG done at night when she had seizure showed a pH of 7.62, pCO2 of 47, pO2 of 85, bicarbonate 50, oxygen saturation 98%. ABG on arrival, at around 6 p.m. yesterday, showed a pH of 7.29, pCO2 of 132, pO2 of 68, bicarbonate 62, oxygen saturation 92%. ABG done at around 6 o'clock in the morning showed a pH of 7.56, pCO2 of 56, pO2 of 54, bicarbonate is 50, oxygen saturation is 93%. BMP done today morning showed sodium 132, potassium 3.8, chloride 77, bicarbonate is 52, BUN 19, creatinine is 0.71, glucose 118, lactic acid 1.2, calcium 7.9, phosphorus 1.3. IMAGING STUDIES: CT scan of the head was done last night, which did not show any acute pathology. A CT scan of the chest was done yesterday, which showed bilateral pleural effusions; right is worse than left. Possible bilateral hilar adenopathy. Bilateral airspace and interstitial opacities increased from the prior exam, suspicious for pneumonia or edema. 2D echocardiogram done today showed left ventricle (LV) ejection fraction of around 70%. There is a grade 1 diastolic dysfunction. Severe elevation of the estimated right ventricle systolic pressure, which is 70 mmHg. Normal right ventricle size. There is volume and pressure overload. Marked reduction and respiratory variation in inferior vena cava, suggesting elevated central venous pressures. Right pleural effusion. CURRENT INPATIENT MEDICATIONS: Patient's medications were all reviewed by myself. She was given two doses of amiodarone 150 mg IV in the morning. I have ordered two doses of potassium chloride 10 mEq to be given. She is on Keppra IV. She was given a dose of magnesium sulfate 1 gram IV. She was getting normal saline, which has been stopped because of heart failure. I gave her a dose of potassium phosphate 20 mmol IV. She is on propofol drip. She was given a dose of acetazolamide 500 mg IV last night, and I have started her on acetazolamide 250 mg IV every 6 hourly. I have started her on amiloride 5 mg via the nasogastric tube (NGT) twice a day. She was given digoxin 0.25 mg IV times four doses. IV Lasix has been stopped. She is getting Ativan as needed and Protonix 40 mg IV daily. ASSESSMENT: 74-year-old female with sarcoidosis, chronic restrictive lung disease, chronic congestive heart failure, admitted this time with acute hypercapnic and hypoxemic respiratory failure secondary to right-sided pleural effusion, status post right-sided chest tube. Hospital course was complicated by sudden post hypercapnic metabolic alkalosis and seizures. PLAN: 1. Post hypercapnic metabolic alkalosis. Patient came in with volume overload. It is very technical to treat this patient's metabolic alkalosis since she is effectively volume overloaded secondary to decompensated cor pulmonale. I cannot give her much sodium chloride. However, I have given her IV potassium chloride. I have started her on potassium-sparing diuretic amiloride 5 mg via the nasogastric (NG) tube twice a day. I also gave her a dose of acetazolamide 500 mg IV, and I have started her on 250 mg IV every 6 hourly. Repeat ABG done in the afternoon still shows patient is in metabolic alkalosis. Patient has reduced effective intra-articular blood volume because of her congestive heart failure. She is hypochloremic. Continue the potassium-sparing diuretic amiloride and acetazolamide at this time, and I would keep giving her potassium chloride for chloride delivery to the distal tubules. 2. New onset seizure activity. It is most likely secondary to post hypercapnic metabolic alkalosis. Alkalosis is being managed as above. She continues to be on Keppra. Rest of the management is as per neurology recommendations. 3. Acute on chronic decompensated cor pulmonale. As mentioned above, we cannot give her loop diuretics because of worsening metabolic alkalosis. We are only diuresing her with acetazolamide and amiloride. 4. Recurrent right-sided pleural effusion, status post chest tube placement. Patient has had 1.7 liters output from the chest tube so far. Management of congestive heart failure (CHF) is as mentioned above. Once the metabolic alkalosis gets better, then diuretic regimen will be adjusted. 5. Acute hypercapnic and hypoxemic respiratory failure. Patient continues to be intubated. Vent management is as per pulmonary team. I would recommend to please allow permissive hypercapnia because of severe metabolic alkalosis. Oxygenation is getting better with improvement of the right-sided pleural effusion. 6. Atrial fibrillation with rapid ventricular rate. Patient was on Eliquis as outpatient. She also takes propafenone and diltiazem as outpatient. Diltiazem is on hold because of low blood pressures after intubation. She got IV digoxin and IV amiodarone by cardiology, and she is getting amiodarone via the NG tube now. Heart rate is better controlled. Management is as per cardiology recommendations. 7. Hyponatremia. Patient had sudden shift in the volumes. She got drainage of the right-sided pleural effusion. She came in with a sodium of 143. Sodium is 132 now. It is likely that hypovolemia is secondary to reduced effective intra-arterial volume. Repeat basic metabolic panel (BMP) is being done now. If the sodium and chloride are persistently low, patient might need small volume expansion that will help with improvement of the metabolic alkalosis and kidney excreting the bicarbonate. Thank you for involving me in the care of this patient. I shall continue to follow the patient along with you tomorrow morning. Total critical care time spent in the management of this patient today morning in the ICU was 1 hour and 15 minutes.
[2019-07-17] VITALS (34 sets, daily range): BP systolic 99–151; BP diastolic 49–82; O2SAT 98
[2019-07-17] MEDS: ACETAZOLAMIDE 500 MG IV SCH ×4 (00:42→17:52)
[2019-07-17] MEDS: MIDAZOLAM INJ 2MG/2ML VIAL (J2250 PER 1MG) IV PRN ×3 (01:52→05:53)
[2019-07-17] MEDS ORDERED: POTASSIUM CHLORIDE 10% LIQ 20 MEQ/15 ML UDC JT ONE (04:30)
[2019-07-17 04:57] LABS: BASO % 0.1 % (0.0-1.0); EOS % 0.1 % (0.0-3.0); HEMATOCRIT 29.3 % (36.0-47.0); HEMOGLOBIN 9.2 g/dl (12.0-15.5); LYMPH # 0.7 10^3/uL (1.5-5.0); LYMPH % 5.5 % (24.0-44.0); MEAN CORPUSCULAR HEMOGLOBIN 26.9 pg (27.0-33.0); MEAN CORPUSCULAR HGB CONC 31.4 g/dl (32.0-36.5); MEAN CORPUSCULAR VOLUME 85.7 fl (80.0-96.0); MONO # 0.8 10^3/uL (0.0-0.8); MONO % 6.3 % (0.0-5.0); NEUTROPHILS % 87.3 % (36.0-66.0); PLATELET COUNT, AUTOMATED 174 10^3/uL (150-450); RED BLOOD COUNT 3.42 10^6/uL (4.00-5.40); WHITE BLOOD COUNT 12.6 10^3/uL (4.0-10.0)
[2019-07-17 05:26] LABS: BLOOD UREA NITROGEN 24 MG/DL (7-18); CALCIUM LEVEL 7.5 MG/DL (8.8-10.2); CARBON DIOXIDE LEVEL 36 MEQ/L (21-32); CHLORIDE LEVEL 87 MEQ/L (98-107); CREATININE FOR GFR 0.92 MG/DL (0.55-1.30); GLOMERULAR FILTRATION RATE > 60.0 (>39); GLUCOSE, FASTING 151 MG/DL (70-100); MAGNESIUM LEVEL 1.7 MG/DL (1.8-2.4); POTASSIUM SERUM 3.8 MEQ/L (3.5-5.1); SODIUM LEVEL 128 MEQ/L (136-145)
[2019-07-17] MEDS ORDERED: MAG SULF 1GM/100ML (MAG RUN) 1 GM in IV 1 EA IV ONE (05:45)
[2019-07-17] MEDS: HEPARIN SOD (PORCINE) 5000UNITS/ML VIAL (J1644 PER 1000UNITS) SQ SCH ×3 (06:26→22:29)
[2019-07-17] MEDS: levETIRAcetam INJection 500 MG in D5W MINI-BAG PLUS 100 ML IV SCH ×2 (06:28→17:52)
[2019-07-17 06:32] LABS: ABG BASE EXCESS 12.4 (-2.0-2.0); ABG HCO3 35.4 MEQ/L (22.0-26.0); ABG O2 SATURATION 97.6 % (95.0-99.0); ABG PARTIAL PRESSURE CO2 39.3 mmHg (35.0-45.0); ABG PARTIAL PRESSURE O2 94.8 mmHg (75.0-100.0); ABG STANDARD HCO3 36.1 MEQ/L (22.0-26.0); ABG TOTAL CO2 36.6 MEQ/L (23.0-31.0); ABG pH (ARTERIAL) 7.573 UNITS (7.350-7.450)
--- NOTE | 2019-07-17 06:57 | REP ---
Clinical: Status post intubation. Comparison: 07/16/2019. Findings: Endotracheal tube 4 cm above the cuong. Nasogastric tube courses below left hemidiaphragm. Right subclavian catheter with tip in the SVC. Right chest tube in stable position. Diffuse bilateral alveolar and interstitial infiltrates, left pleural effusion, and small right apical pneumothorax are again identified and essentially unchanged. Proximal left humeral fracture noted. Impression: 1. Lines and tubes as above. 2. Small right apical pneumothorax similar to prior examination. 3. Diffuse bilateral pleuroparenchymal changes remain stable. 4. No obvious new acute process identified. Electronically Signed by Thom Al MD 07/17/2019 06:49 A
[2019-07-17] MEDS: ALBUTEROL SULFATE 2.5 MG/0.5 ML INH NEB SOLN INH PRN (07:22)
[2019-07-17] MEDS: SYMBICORT 80/4.5MCG INHALER 6GM INH SCH ×2 (07:22→19:32)
[2019-07-17] MEDS: aMILoride 5 MG TAB NG SCH (08:12)
[2019-07-17] MEDS: DIGOXIN 0.125 MG TAB PO SCH (08:13)
[2019-07-17] MEDS: AMIODARONE 200 MG TAB (PACERONE) PO SCH ×3 (08:13→20:09)
[2019-07-17] MEDS: PANTOPRAZOLE 40MG VIAL (C9113 PER 1) IV SCH (08:13)
--- NOTE | 2019-07-17 09:04 | IPNPDOC ---
Text Note Date of Service The patient was seen on 07/17/19. NOTE Subjective: Patient is a 74, her female with a PMHx A. fib (on ), CHF (unknown EF), Symptomatic Betito s/p PM (2016), HTN, DLP, Chronic hypoxic res piratory failure (on 3L O2), Moderate Persistent Asthma, Restrictive lung disease 2/2 Sarcoidosis, Allergic Rhinitis and GERD who was transferred from [facility] for right-sided pleural effusion. Patient has a recent history of right-sided pleural effusion on 05/30/2019. At that time, she had 990 mL of fluid removed that was consistent with trasudative etiology. Cytology and cell block were negative for malignancy. Fluid accumulation was thought to be from congestive heart failure. Patient was advised to follow-up with her outpatient dual hose cementer, Dr. Chandler, and continue with her diuretic regimen. Patient has presented to [facility] for worsening shortness of breath and confusion. In the ER, patient had imaging completed that had revealed a moderate to large right-sided pleural effusion and a hazy left lower lobe opacity. Patient blood test run that showed pH 7.2/pCO 140. Providers had contacted [facility] for transfer for drainage of effusion and BiPAP nicholson pport. Patient was placed on BiPAP and transferred to [facility] on 07/14. Upon arrival patient is oriented to person, place and time. Patient had a chest tube placed 07/[address] Mathis. Patient was kept on BiPAP and Dr. Melgar was called on consultation. Patient had gone into respiratory arrest was ultimately intubated that night (07/14). While having a central line placed. Patient experienced a seizure episode and was started on Keppra. Neurology and nephrology were consulted. Patient was seen and examined at the bedside. Clinically remains intubated and sedated. She is unable to follow commands at this time. Objective: Vitals (See below) General: Lying in bed, intubated / sedated HEENT: NC, AT, + ET tube, + OT tube CVS: IrIr, +S1S2 Lungs: Aeration is equal and fair bilaterally. No evidence of wheezing, rhonchi, rales Abdomen: Remain soft without any distention or tenderness Extremities: 1+ pitting edema at feet / ankles, - Calf tenderness Neuro: Retracts all four extremities to pain Assessment and plan: Acute on Chronic hypercapnic respiratory failure on Chronic hypoxic respiratory failure - likely 2/2 recurrent R sided pleural effusion - possibly 2/2 congestive heart failure in the setting of restrictive lung disease 2/2 sarcoidosis - Chronically uses 3 L of oxygen continuously - Serial ABGs have shown improvement / stability - CXR 07/14 at [place] revealed moderate-large R pleural effusion, hazy LLL opacity, L sided pacemaker - CT chest 07/14: 1. Bilateral pleural effusions, as described above. 2. Possible bilateral hilar adenopathy, as described above. 3. Bilateral airspace and interstitial opacities increased from the prior exam suspicious for pneumonia/edema. 4. Other findings and limitations as described above. - s/p intubation 07/14; currently on ventilator - Pulmonology on consultation; appreciate their input Recurrent R sided pleural effusion - possibly 2/2 congestive heart failure, unlikely 2/2 pneumonia - Leukocytosis is mild - trending down (possibly 2/2 reactive), No lactic acidosis - Improved aeration bilaterally - CXR 07/16: 1. Lines and tubes as above. 2. Small right apical pneumothorax similar to prior examination. 3. Diffuse bilateral pleuroparenchymal changes remain stable. 4. No obvious new acute process identified. - Troponin trend has remeain negative - EKG reveals paced rhythm from [facility] - s/p Chest tube 07/[address] Mathis - ECHO: Evidence of R sided heart failure without pericardial effusion - Cardiothoracic surgery on consultation; appreciate their input R pneumothorax (small) - Small and likely 2/2 recently placed chest tube - c/w Chest tube to suction - Cardiothoracic surgery on consultation; appreciate their input Respiratory acidosis with compensatory metabolic alkalosis initially, with shift to respiratory alkalosis without reduction in compensatory metabolic alkalosis from chronic hypercarbia - Vent settings have been adjusted and patient has been sedated - Will DC Furosemide - c/w Acetazolamide - Pulmonology and Nephrology on consultation Hyponatremia - Normal saline has been started by Nephrology - Nephrology on consultation; appreciate their input s/p Hemodynamic instability - possibly 2/2 A. fib with RVR - Hx of HTN - s/p Diltiazem - s/p Central line placement; Has been taken off pressor support overnight Seizure episode - likely 2/2 alkalosis - Moving all four extremities - CT head 07/15: 1. Mild hyperdensities in the periventricular white matter which are consistent with chronic small vessel ischemic disease. 2. No abnormal enhancing lesions. - c/w neuro checks - Will have EEG completed today - c/w Keppra; anticipate transitioning off Keppra once acid/base abnormalities normalize - Neurology on consultation; appreciate their input Giulia. fib with RVR - Hemodynamically stable today - s/p Diltiazem (re: Hypotension) - s/p Digoxin and Amiodarone IV - c/w Amiodarone PO - Will hold full anticoagulation with Eliquis (re: Chest tube placement and scheduled battery replacement) - Cardiology called on consultation; appreciate their input Acute metabolic encephalopathy - likely 2/2 acid-base abnormalities / pCO2 retention - Again no focal neurologic deficits - CT head 07/14: Completed a [facility] does not reveal any acute abnormalities - Will continue to correct acid-base / pCO2 (see above) Symptomatic Bradycardia s/p PM (2016) - Patient has had pacemaker placed by Dr. Gonzales - Discussed with Dr. Gonzales scheduled for battery replacement for pacemaker on today, 07/17/19 - Patient is to remain off pelvis from today and nothing by mouth Wednesday night for PM battery replacement on 07/17/2019 - Dr. Gonzales has been consulted DLP - c/w Ezetimibe Moderate Persistent Asthma /Restrictive lung disease 2/2 Sarcoidosis - See above s/p Hypomagnesemia Allergic Rhinitis GERD - c/w Protonix IV DVT prophylaxis - c/w Heparin - Eliquis on hold (re: Chest tube placement and PM battery exchange on 07/17/2019) Disposition: - Anticipate PM battery replacement today with Dr. Gonzales - Will have EEG completed today VS,Jacquesbone, I+O VS, Fishbone, I+O Laboratory Tests 07/16/19 11:26 07/16/19 19:22 07/17/19 04:33 Vital Signs Date Time Temp Pulse Resp B/P (MAP) Pulse Ox O2 Delivery O2 Flow Rate FiO2 07/17/19 08:13 109 07/17/19 08:00 21 07/17/19 08:00 97.7 21 110/51 (74) 94 Ventilator 120/61 07/16/19 13:00 25.0 I&O- Last 24 Hours up to 6 AM 07/17/19 05:59 Intake Total 2828 ml Output Total 2460 ml Balance 368 ml NOAH BELLAMY MD July 17, 2019 09:04
[2019-07-17] MEDS: MORPHINE 2 MG/ML 1ML VIAL (J2270) IV PRN ×3 (09:13→20:09)
[2019-07-17] MEDS: CHLORHEXIDINE GLUCONATE 0.12 % 15ML UDC (PERIDEX ORAL RINSE) MT SCH ×2 (10:34→20:08)
[2019-07-17] MEDS: ASPIRIN 300 MG SUPP PR SCH (10:34)
--- NOTE | 2019-07-17 10:34 | CCN ---
DATE OF VISIT: 07/17/2019 START TIME: 831 STOP TIME: 913 I again attended Liv Caicedo here in the intensive care unit. The patient has been examined and the chart reviewed. I spoke at length with the bedside nurse. I have also had a long conversation with her daughter Chrissy this morning by phone. Tmax overnight 97.9, blood pressure 100 to 130 systolic and she has been able to be weaned off of the Levophed. Heart rate generally in the 80s to the low 100s and is back to being pacer driven. Respiratory rate 18 to 30 depending upon her level of consciousness. She remains on 21% FiO2. Ins and outs midnight to midnight 3038 mL in with 2455 mL out. Most recent laboratories show a white blood cell count of 12.6, hemoglobin 9.2, platelet count of 174,000, with 87% segs and 0 bands. Sodium 128, potassium 3.8, chloride 87, CO2 36, BUN 24, creatinine 0.92, glucose 151. Magnesium mildly low at 1.7. Albumin 1.9. Blood gas done on a PRVC mode, rate of 10, tidal volume 350, PEEP 5, FiO2 21% has a pH of 7.573, pCO2 of 39.3 and a pO2 of 94.8. Chest x-ray shows no real change. There is still a small air space at the right apex. Chest tube is without obvious air leak and continues to drain. On exam, she is easily arousable. Moves all extremities. Does appear to respond reasonably to questioning. She is known to be hard of hearing at baseline. Pupils react, sclerae are clear. Trachea is in the midline. Jugular venous system marginal today. Chest shows a right thoracostomy tube. Breath sound intensity reasonable bilaterally. Expansion although diminished is symmetric. There is no focal adventitious breath sounds identified anteriorly. There are some fine dependent crackles. Cardiac exam is distant, generally regular. Pacemaker generator palpable in the left pectoralis region. Peripheral pulses are diminished, but palpable. Her 2+ to 3+ pitting edema is unchanged. Abdomen is soft. There are active bowel sounds. No convincing organomegaly or masses. Extremities: Without cyanosis or clubbing. Her sequential stockings are in place. Neurologically, she is mildly sedate, easily arousable, and moves all extremities. Psychiatric Exam: She is calm. The most pressing problems requiring my presence at the bedside: 1. Acute on chronic hypoxemic and hypercapnic respiratory failure. 2. Cor pulmonale. 3. Electrolyte abnormality secondary to chronic CO2 retention. 4. Atrial fibrillation with rapid ventricular response, has indwelling pacemaker. 5. Respiratory failure requiring mechanical ventilatory support. I had a very lengthy discussion with her daughter this morning. Clearly, they do not wish prolonged mechanical ventilatory support. The patient's is hard of hearing and is having some other issues at this point, so the daughter Chrissy has become the spokesperson. I know her from the outpatient setting as well as she has accompanied her mother to outpatient appointments. At this point, she is potentially scheduled for a pacemaker battery change today. Her rate is much more controlled at this point. She has been able to be weaned off of Levophed. Nephrology is involved and has been using Diamox. She has had a significant decline in her serum bicarbonate and we need to continue to wean her as able, realizing that she will equilibrate somewhere in between as her pH is still 7.57. My suspicion is her resting CO2 will probably end up being around 50 to 55. It is somewhat difficult in view of her right sided volume overload and the need for diuresis. Ulcer and deep vein thrombosis (DVT) prophylaxis are in place. She was tolerating tube feeds up until they were put on hold for her pacemaker battery change. I discussed the above with her daughter. Will try to push her ventilator weaning a little harder in the next 24 to 48 hours. The daughter again reiterates that once her mother is extubated,they wish no reintubation. I believe this is very appropriate. Will proceed as outlined above. Overall, she remains critically ill and her prognosis remains guarded at best. I left the bedside at 0914 hours. A total of 42 minutes of critical care time delivered at the bedside, not including procedures. [facility]
[2019-07-17 10:49] LABS: CORTISOL AM 66.4 UG/DL (4.3-22.4)
[2019-07-17] MEDS ORDERED: MIDAZOLAM INJ 2MG/2ML VIAL (J2250 PER 1MG) As Ordered ONE (12:02)
[2019-07-17] MEDS ORDERED: fentaNYL 100 MCG/2 ML INJECTION (J3010) As Ordered ONE (12:02)
[2019-07-17] MEDS ORDERED: ceFAZolin SOD 1 GM in D5W MINI-BAG PLUS 50 ML IV ONE (12:30)
[2019-07-17] MEDS ORDERED: DIGOXIN INJ 0.5 MG/2 ML AMP (J1160) IV ONE (12:30)
[2019-07-17] MEDS: METOPROLOL TART 12.5 MG PER 1/2 TAB NG SCH ×2 (12:38→17:51)
--- NOTE | 2019-07-17 12:50 | IPN ---
DATE: 07/17/2019 SUBJECTIVE: Patient remains intubated, ventilated and sedated. PHYSICAL EXAMINATION: Temperature 97.7, pulse 105, (irregularly irregular), respiratory rate 18, blood pressure 123/57, oxygen saturation 95% on FiO2 21% on the ventilator. Triple lumen catheter in situ right subclavian, pacemaker in situ left subclavian, chest tube in situ right chest. Endotracheal tube present. Nasogastric tube present. Jugular venous pulsations were at 5-6 cm. First heart sounds variable in intensity. Second heart sound was loud. No S3. No murmurs appreciated. Respiratory expansion and effort on the ventilator was good. No crackles or wheezes. Abdomen was soft, nontender with normal bowel sounds. 5 mm pitting edema. Pretibial bilateral. Laboratory work 07/13/2019 was reviewed: WBC 12.6, hemoglobin 9.2, hematocrit 29.3, platelets 174. Sodium 128, potassium 3.8, chloride 87, CO2 36, BUN 24, creatinine 0.93, estimated GFR greater than 60, glucose 151, calcium 7.5, magnesium 1.7. Portable chest x-ray 07/17/2019 reported endotracheal tube and nasogastric tube is present. Right subclavian catheter with tip in the SVC. Right chest tube position stable. Diffuse bilateral alveolar and interstitial infiltrates. Left pleural effusion. Small right apical pneumothorax unchanged. Proximal left humeral fracture. ASSESSMENT/PLAN: 1. Paroxysmal atrial fibrillation: Patient continues to be in atrial fibrillation with rapid ventricular rate. Her rate has slowed down considerably from what it was yesterday with IV Digoxin and with amiodarone. Now that she is off norepinephrine IV and her blood pressure is better, I can infuse a low dose of beta maddison to begin with. She can be placed back on anticoagulation once she has had her pacemaker pulsed generator changed after approximately 24 hours postop. 2. Pacemaker battery placement battery depletion: The plan is to proceed with pacemaker pulse generator change later on this afternoon. 3. Pacemaker in situ: Plan will be for pacemaker pulsed generator change later on this afternoon. 4. Right heart failure: Patient appears to be decompensated on examination. She has hyponatremia. Nephrology is managing the patient's fluid status on hyponatremia. 5. Systemic hypertension: Blood pressure presently controlled. She is now off of norepinephrine IV. At present, she is not on any antihypertensive agents. mentioned above, I will cautiously introduce a small dose of beta maddison for assisting with heart rate control of atrial fibrillation.
[2019-07-17] MEDS ORDERED: ONDANSETRON 4MG/2ML VIAL As Ordered ONE (13:23)
[2019-07-17] MEDS ORDERED: KCL 10MEQ/100ML SWI (KRUN) 10 MEQ in IV 1 EA IV SCH (14:00)
[2019-07-17] MEDS ORDERED: KCL 20MEQ IN 100ML SWI (KRUN) 20 MEQ in IV 1 EA IV ONE ×2 (15:00)
--- NOTE | 2019-07-17 16:24 | RO ---
DATE OF OPERATION: 07/17/2019 PREOPERATIVE DIAGNOSIS: Pacemaker battery depletion. POSTOPERATIVE DIAGNOSIS: Pacemaker battery depletion. PROCEDURE: Explantation of old [employer] dual-chamber pacemaker pulse generator and implantation of new [employer] dual-chamber pacemaker pulse generator. Insertion of medium size TYRX antimicrobial envelope. SURGEON: Rick Gonzales MD SOFTWARE SALES EXECUTIVE: None. ANESTHESIA: Lidocaine 1% local/monitored anesthetic care. FINDINGS: Pacemaker battery depletion. SPECIMENS: Old [employer] dual-chamber pacemaker pulse generator. ESTIMATED BLOOD LOSS: Less than 20 mL. No blood products replaced. No drains. No complications. PROCEDURE DESCRIPTION: The patient was prepped and draped over the left pectoral region. 3M Ioban film was applied. Lidocaine 1% was used for local anesthetic. An incision over the upper portion of the pacemaker pulse generator but below the original scar was made with a #15 blade. Fine scissor dissection was used to get down to and through the anterior capsule overlying the pacemaker pulse generator. The suture holding down the pacemaker pulse generator was cut. The pacemaker pulse generator was then removed from the pocket. The terminal pins of the existing atrial and ventricular leads were then removed after loosening the setscrews with the hex screwdriver. The existing atrial and ventricular leads were then tested with a pulse analyzer and found to be satisfactory for chronic leads. The patient was in atrial flutter during the operation. Next, I expanded the caudal aspect of the pacemaker incision a small amount using blunt dissection using two fingers. I then took a medium size TYRX antimicrobial envelope and cut it into four pieces, which were placed into the pacemaker pocket. The pacemaker terminal pins were placed into their respective port in the header of the new pacemaker pulse generator and each one was secured by tightening the setscrews with the hex screwdriver. The excess lead material was then coiled underneath the pacemaker pulse generator and placed along with the pacemaker pulse generator into the pacemaker pocket. I took a #0 Ethibond suture to secure the pacemaker pulse generator to the pectoral muscle. The deep layer was closed using individual sutures consisting of #2-0 Vicryl. The skin was closed using #4-0 Biosyn subcuticular stitch with the end of the suture pulled through the skin 1 cm from the incision line and then snipped at the level of the skin. Next, I used a perineal closure mesh with the Dermabond material supplied to close the incision. The patient tolerated the procedure well without any immediate complications. The existing pulse generator that was explanted was a [employer] model 5386, serial number [id number] originally implanted 11/05/2006. The new pacemaker pulse generator implanted was a [employer] [facility] MRI model UJ6937 with serial number [id number]. The chronic existing right ventricular lead was a [employer] model 1646T/58 with serial number [id number] originally implanted 11/05/2006. Testing in operating room with the PSA analyzer showed capture threshold of 0.8 volts at 0.4 ms with R wave amplitude of 9.0 mV and lead impedance of 561 ohms. The existing right atrial lead was a [employer] model 1782T/52 with serial number [id number] originally implanted 11/05/2006. Analysis of the atrial lead with the PSA analyzer showed flutter waves of 1.9 mV with lead impedance of 326 ohms. [facility]
[2019-07-17 19:05] LABS: BLOOD UREA NITROGEN 21 MG/DL (7-18); CALCIUM LEVEL 7.2 MG/DL (8.8-10.2); CARBON DIOXIDE LEVEL 30 MEQ/L (21-32); CHLORIDE LEVEL 94 MEQ/L (98-107); CREATININE FOR GFR 0.76 MG/DL (0.55-1.30); GLOMERULAR FILTRATION RATE > 60.0 (>39); GLUCOSE, FASTING 155 MG/DL (70-100); SODIUM LEVEL 128 MEQ/L (136-145)
--- NOTE | 2019-07-17 21:22 | EEG ---
DATE OF PROCEDURE: 07/17/2019 REFERRING PHYSICIAN: Dr. Jess Day REASON FOR EEG: Seizure. EEG NUMBER: Not provided. HISTORY: The patient is a 74-year-old woman who was admitted at [facility] due to shortness of breath, pleural effusion, history of sarcoidosis, respiratory failure. She had a seizure-like spell. This EEG was done to rule out epileptic potential. She is currently taking propofol, Keppra, norepinephrine, amiodarone, diltiazem, etc. TECHNICAL DESCRIPTION: This digital EEG was recorded by 21 scalp, ear and two EKG electrodes and was reviewed in bipolar and referential montages following reformatting in 10-20 international electrode placement system. INTERPRETATION: The patient remained on ventilator on sedation. The patient remained mostly in drowsy and asleep state. Background rhythm consisted of 3-4 Hz delta activity measuring 15-100 microvolts in amplitude, which was symmetric bilaterally. Subtle burst suppression pattern was noted intermittently. No clear sleep stages were identified. Hyperventilation could not be performed. Photic stimulation remained unremarkable. No focal, lateralizing or epileptiform abnormalities were seen. No relevant clinical activity was noted. EKG revealed irregular heart rhythm with wide complex QRS complexes and paced spikes at times. CONCLUSION: This EEG in a mechanically ventilated patient on sedation was abnormal due to presence of generalized slowing and subtle burst suppression pattern consistent with nonspecific diffuse cerebral dysfunction such as seen in moderate-severe encephalopathy due to multiple potential causes, including toxic, metabolic, medication related, infectious or multifocal structural brain abnormalities. No epileptiform abnormalities were seen. Clinical correlation is recommended.
[2019-07-17] MEDS: propofoL 1,000 MG in IV 1 EA IV SCH (22:01)
[2019-07-18] VITALS (19 sets, daily range): BP systolic 87–154; BP diastolic 41–73; O2SAT 94–98
[2019-07-18] MEDS: METOPROLOL TART 12.5 MG PER 1/2 TAB NG SCH ×4 (00:10→17:03)
[2019-07-18] MEDS: MIDAZOLAM INJ 2MG/2ML VIAL (J2250 PER 1MG) IV PRN ×2 (00:10→04:36)
[2019-07-18] MEDS: MORPHINE 2 MG/ML 1ML VIAL (J2270) IV PRN ×3 (02:35→20:36)
[2019-07-18 05:31] LABS: ABG BASE EXCESS 3.5 (-2.0-2.0); ABG HCO3 30.3 MEQ/L (22.0-26.0); ABG O2 SATURATION 96.5 % (95.0-99.0); ABG PARTIAL PRESSURE CO2 58.1 mmHg (35.0-45.0); ABG PARTIAL PRESSURE O2 91.4 mmHg (75.0-100.0); ABG STANDARD HCO3 27.6 MEQ/L (22.0-26.0); ABG TOTAL CO2 32.1 MEQ/L (23.0-31.0); ABG pH (ARTERIAL) 7.335 UNITS (7.350-7.450)
[2019-07-18] MEDS: HEPARIN SOD (PORCINE) 5000UNITS/ML VIAL (J1644 PER 1000UNITS) SQ SCH ×2 (05:42→15:11)
[2019-07-18] MEDS: levETIRAcetam INJection 500 MG in D5W MINI-BAG PLUS 100 ML IV SCH ×2 (05:43→17:05)
[2019-07-18] MEDS: AMIODARONE 200 MG TAB (PACERONE) PO SCH ×3 (05:43→17:04)
[2019-07-18 05:53] LABS: BASO % 0.1 % (0.0-1.0); EOS # 0.1 10^3/uL (0.0-0.5); EOS % 0.5 % (0.0-3.0); HEMATOCRIT 30.1 % (36.0-47.0); HEMOGLOBIN 9.2 g/dl (12.0-15.5); LYMPH # 0.5 10^3/uL (1.5-5.0); LYMPH % 3.9 % (24.0-44.0); MEAN CORPUSCULAR HEMOGLOBIN 27.2 pg (27.0-33.0); MEAN CORPUSCULAR HGB CONC 30.6 g/dl (32.0-36.5); MEAN CORPUSCULAR VOLUME 89.1 fl (80.0-96.0); MONO # 0.9 10^3/uL (0.0-0.8); MONO % 6.7 % (0.0-5.0); NEUTROPHILS # 11.7 10^3/uL (1.5-8.5); NEUTROPHILS % 88.3 % (36.0-66.0); PLATELET COUNT, AUTOMATED 179 10^3/uL (150-450); RED BLOOD COUNT 3.38 10^6/uL (4.00-5.40); WHITE BLOOD COUNT 13.2 10^3/uL (4.0-10.0)
[2019-07-18 06:16] LABS: BLOOD UREA NITROGEN 23 MG/DL (7-18); CALCIUM LEVEL 7.9 MG/DL (8.8-10.2); CARBON DIOXIDE LEVEL 31 MEQ/L (21-32); CHLORIDE LEVEL 95 MEQ/L (98-107); CREATININE FOR GFR 0.79 MG/DL (0.55-1.30); GLOMERULAR FILTRATION RATE > 60.0 (>39); GLUCOSE, FASTING 124 MG/DL (70-100); POTASSIUM SERUM 5.3 MEQ/L (3.5-5.1); SODIUM LEVEL 130 MEQ/L (136-145)
[2019-07-18] MEDS: ALBUTEROL SULFATE 2.5 MG/0.5 ML INH NEB SOLN INH PRN (07:44)
[2019-07-18] MEDS: SYMBICORT 80/4.5MCG INHALER 6GM INH SCH ×2 (07:48→19:26)
--- NOTE | 2019-07-18 08:30 | REP ---
PORTABLE CHEST X-RAY: Single view. HISTORY: Pleural effusion. COMPARISON STUDY: July 17, 2019. FINDINGS: Endotracheal tube is seen in good position at the level of the proximal clavicles. An NG tube enters left upper quadrant of the abdomen. Bipolar pacemaker leads remain in the heart. Cardiac enlargement is observed. There is a right subclavian line again noted in place with its tip in the expected location of the superior vena cava. A right-sided chest tube remains in place at mid chest level laterally. There is a small right apical pneumothorax again noted essentially unchanged. There is slight blunting of the left lateral pleural angle unchanged. Discoid atelectasis and increased density persists in the left perihilar region. There is improvement noted in the infiltrate in the right base. Diffusely prominent interstitial markings persist on the right although these are somewhat improved as well. No new infiltrate is seen. Electronically Signed by Huber Pulliam MD 07/18/2019 11:24 A
--- NOTE | 2019-07-18 08:53 | IPN ---
DATE OF SERVICE: 07/17/2019 SUBJECTIVE: Liv is seen and examined this morning at the bedside in the intensive care unit. She is intubated and ventilated but awake and alert and able to follow some simple commands at the time of my visit. Her metabolic alkalosis has been improving with combination diuretics plus normal saline. She is on minimal oxygen requirements. She is for a pacemaker generator change. Mild hyponatremia persists. Vital signs: Temperature 97.3, pulse 62, respiratory rate 14, blood pressure 123/56, saturating 94% on 21% FIO2. Intake yesterday was 3 liters. Urine output was 1.7 liters. There was 250 mL drainage from the gastric tube and 450 mL drainage from the chest tube. Weight in the bed scale today is 46.9 kg. General: The patient is seen intubated and ventilated but awake and alert. Head of the bed elevated. Eyes open. Makes eye contact. There is a right-sided central line and a chest tube, as well. Endotracheal tube and orogastric tube present. Jugular veins are mildly elevated. Heart sounds appeared irregular. There is prominent leg edema bilaterally. Abdomen is soft and nontender. There are bowel sounds. Genitourinary: Shows Myles catheter. Respiratory: Shows symmetric air entry without crackle or rales. Neurologic: She squeezed her eyes shut on command and also wiggles toes of the left foot on command. LABORATORIES: White count 12.6, hemoglobin 9.2. Sodium 128, potassium 3.8, bicarbonate 36, BUN 24, creatinine 0.9. Repeat labs in the evening showed improvement in bicarbonate down to 30, potassium 5.0. Sodium 128. Arterial blood gas (ABG) this morning showed pH 7.57 with a pCO2 of 39. Chest x-ray 07/17/2019: Small right apical pneumothorax, diffuse bilateral pleural parenchymal changes and alveolar/interstitial infiltrates, left humeral fracture. INPATIENT MEDICATIONS: The patient remains off of pressor support. She received potassium chloride and magnesium sulfate supplementation. She received 1 liter of normal saline. I stopped her Diamox and amiloride in the evening. She was started on digoxin 0.125 mg by mouth daily by the primary service, along with metoprolol 12.5 mg every 6 hours. The remainder of medications are unchanged from prior. PROBLEMS: 1. Combined metabolic and respiratory alkalosis. The patient has received a combination of Diamox and amiloride and normal saline with subsequent improvement in serum bicarbonate from 52 down to 30. I am stopping the fluids and diuretics now. Her blood gas shows a pCO2 of 39. Likely when she is extubated, her pCO2 will be in the high 40s, low 50s with resulting improvement in her pH. 2. Decompensated right heart failure with hypervolemic hyponatremia. The patient's metabolic alkalosis has improved nicely with combination Diamox, amiloride, and normal saline; and all of the above is being discontinued this evening. If necessary, we can consider tolvaptan for further diuresis and correction of the sodium levels. However, I will wait until a.m. chemistries are available. 3. Status post seizure episode, likely precipitated by significant metabolic alkalosis and fall in serum sodium level on admission. The patient's serum bicarbonate has improved nicely with combination Diamox, amiloride, and normal saline. Repeat blood gas in the a.m. Hold diuretics for now. Intravenous (IV) fluids, likewise, have been discontinued. Will reevaluate for additional diuretic need daily. Her diuresis this complicated by her acid-base disorder.
[2019-07-18] MEDS: CHLORHEXIDINE GLUCONATE 0.12 % 15ML UDC (PERIDEX ORAL RINSE) MT SCH ×2 (08:58→20:35)
[2019-07-18] MEDS: PANTOPRAZOLE 40MG VIAL (C9113 PER 1) IV SCH (08:58)
[2019-07-18] MEDS: DIGOXIN 0.125 MG TAB PO SCH (09:00)
--- NOTE | 2019-07-18 09:48 | IPN ---
DATE: 07/18/2019 I again attended Liv Caicedo here in the intensive care. Patient has been examined and chart reviewed. I spoke at length with the bedside nurse. Maximum temperature (T-max) overnight 97.5, blood pressure 114 to 150s. She remains off of Levophed. Heart rate generally paced with a rate of 60 and occasionally higher than that. Respiratory rate any where from 13 to mid 20s without accessory muscle use. Input and output mid night to midnight 2054 in with 2105 mL out. Most recent laboratories show a white blood cell count of 13.2, hemoglobin 9.2, platelet count of 79,000, 80% segmented neutrophils no bands. Sodium 130, potassium of 5.3, chloride 95, CO2 31, BUN 23, creatinine 0.79, glucose 124. Blood gas done this morning on a PRBC rate of 10, tidal volume 350, PEEP of 5, pressure support of 15 and FiO2 21%, pH 7.335, pCO2, 50.1 and a pO2 91.4. She does over breath the ventilator. Her own tidal volumes are low generally in the 200s. Chest x-ray shows persistent pneumothorax on the right. Chest tube is draining and there is no obvious leak. Medications list has been reviewed. EEG shows some burst suppression consistent some toxic metabolic encephalopathy. She remains on low dose propofol and as needed versed. She remains on amiodarone. PHYSICAL EXAMINATION: On exam, she is awake, alert. Does follow commands but is globally weak. Vital signs in the electronic medical record (EMR) have been reviewed. HEENT otherwise normocephalic, atraumatic. Pupils react. Neck with mobility consistent with age. Trachea is in the midline. Oral, endotracheal and orogastric tubes are in place. Chest shows a right thoracostomy tube. Expansion markedly diminished but reasonably symmetric. Breath sounds intensity globally diminished much more at the bases. There are some dependent crackles. Pacemaker generator palpable in the left pectoralis region. Cardiac exam: Distant but regular. Her harsh murmur is unchanged. Peripheral pulses diminished but palpable. Her significant edema is unchanged. Abdomen is soft. There are active bowel sounds. No convincing organomegaly or masses. Extremities: No cyanosis or clubbing. Edema as outlined above. Neurologically she is awake, alert and does move all extremities. IMPRESSION: 1. Mixed metabolic and respiratory acidosis and alkalosis. 2. Atrial fibrillation with rapid ventricular rate (RVR). 3. Pacemaker status. 4. Status post seizure. 5. Status post respiratory arrest, still mechanically ventilated. 6. Pulmonary hypertension. 7. Asthma. 8. Sarcoidosis. She is off the Diamox established being given as needed by nephrology. At this point, she is more of a primary respiratory acidosis and will slowly decrease her ventilatory support in hopes that she is strong enough to achieve endotracheal extubation. She is clearly not ready today as on just the pressure support mode alone, even with pressure supports between 12 and 15 cm of water, her spontaneous tidal volumes are around 120. Ventilator adjustments were made. We will get a blood gas in an hour or so. We have decreased her level of sedation. She is on ulcer and deep venous thrombosis (DVT) prophylaxis through the primary service. She was tolerating tube feeds at goal and we will restart these as I do not believe she will be extubated today. There is no evidence of active infection and she is not on antimicrobials and I believe that is appropriate. For now we will minimize her sedation. We will continue as outlined above. My hopes is that she will be strong enough the next 24-48 hours to tolerate extubation but only time will tell in that regard. All in all, she remains critically ill. Her prognosis remains guarded at best. The nursing staff continues to uptake the daughter on a regular basis. Further recommendations will be made in the progress record as new information becomes available.
[2019-07-18 10:12] LABS: ABG BASE EXCESS 3.9 (-2.0-2.0); ABG HCO3 30.5 MEQ/L (22.0-26.0); ABG O2 SATURATION 98.6 % (95.0-99.0); ABG PARTIAL PRESSURE CO2 57.6 mmHg (35.0-45.0); ABG PARTIAL PRESSURE O2 123.2 mmHg (75.0-100.0); ABG TOTAL CO2 32.3 MEQ/L (23.0-31.0); ABG pH (ARTERIAL) 7.342 UNITS (7.350-7.450)
[2019-07-18] MEDS: TORSEMIDE 20 MG TAB PO SCH (12:20)
--- NOTE | 2019-07-18 19:16 | ECGEPIP ---
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
[2019-07-18] MEDS: APIXABAN 2.5 MG TAB (ELIQUIS) PO SCH (20:35)
[2019-07-19] VITALS (21 sets, daily range): BP systolic 86–198; BP diastolic 33–134; O2SAT 98
[2019-07-19] MEDS: MORPHINE 2 MG/ML 1ML VIAL (J2270) IV PRN ×2 (00:24→02:32)
[2019-07-19 04:32] LABS: BASO % 0.1 % (0.0-1.0); EOS # 0.1 10^3/uL (0.0-0.5); EOS % 1.1 % (0.0-3.0); HEMATOCRIT 27.8 % (36.0-47.0); HEMOGLOBIN 8.2 g/dl (12.0-15.5); LYMPH # 0.4 10^3/uL (1.5-5.0); LYMPH % 3.8 % (24.0-44.0); MEAN CORPUSCULAR HEMOGLOBIN 26.5 pg (27.0-33.0); MEAN CORPUSCULAR HGB CONC 29.5 g/dl (32.0-36.5); MONO # 0.8 10^3/uL (0.0-0.8); MONO % 6.9 % (0.0-5.0); NEUTROPHILS # 9.8 10^3/uL (1.5-8.5); NEUTROPHILS % 87.6 % (36.0-66.0); PLATELET COUNT, AUTOMATED 166 10^3/uL (150-450); RED BLOOD COUNT 3.09 10^6/uL (4.00-5.40); WHITE BLOOD COUNT 11.2 10^3/uL (4.0-10.0)
[2019-07-19 04:56] LABS: BLOOD UREA NITROGEN 25 MG/DL (7-18); CALCIUM LEVEL 7.9 MG/DL (8.8-10.2); CARBON DIOXIDE LEVEL 37 MEQ/L (21-32); CHLORIDE LEVEL 95 MEQ/L (98-107); CREATININE FOR GFR 0.68 MG/DL (0.55-1.30); GLOMERULAR FILTRATION RATE > 60.0 (>39); GLUCOSE, FASTING 131 MG/DL (70-100); MAGNESIUM LEVEL 1.9 MG/DL (1.8-2.4); POTASSIUM SERUM 4.5 MEQ/L (3.5-5.1); SODIUM LEVEL 133 MEQ/L (136-145)
[2019-07-19 05:53] LABS: ABG BASE EXCESS 5.2 (-2.0-2.0); ABG HCO3 31.7 MEQ/L (22.0-26.0); ABG O2 SATURATION 98.6 % (95.0-99.0); ABG PARTIAL PRESSURE CO2 57.9 mmHg (35.0-45.0); ABG PARTIAL PRESSURE O2 122.9 mmHg (75.0-100.0); ABG STANDARD HCO3 29.2 MEQ/L (22.0-26.0); ABG TOTAL CO2 33.5 MEQ/L (23.0-31.0); ABG pH (ARTERIAL) 7.356 UNITS (7.350-7.450)
[2019-07-19] MEDS: levETIRAcetam INJection 500 MG in D5W MINI-BAG PLUS 100 ML IV SCH (06:20)
--- NOTE | 2019-07-19 08:05 | REP ---
PORTABLE CHEST X-RAY: Single view. HISTORY: Pleural effusion. COMPARISON CHEST X-RAY: July 18, 2019. FINDINGS: Endotracheal tube remains in good position. NG tube enters left upper quadrant. Right subclavian line terminates in the expected location of the superior vena cava. Cardiac pacemaker, monitoring electrodes, oxygen delivery tubing are also present. A right-sided pleural drainage tube is noted in place. There is a small right apical pneumothorax again noted essentially unchanged. Interstitial markings are increased throughout the lung mills and there are areas of parenchymal opacification or consolidation in the perihilar regions bilaterally. There is blunting of the left lateral pleural angle and to a lesser extent, the right lateral pleural angle unchanged. No new infiltrate or other significant change. Electronically Signed by Huber Pulliam MD 07/19/2019 08:17 A
[2019-07-19] MEDS: SYMBICORT 80/4.5MCG INHALER 6GM INH SCH ×2 (09:00→19:38)
[2019-07-19 10:10] LABS: ABG BASE EXCESS 10.8 (-2.0-2.0); ABG HCO3 38.6 MEQ/L (22.0-26.0); ABG O2 SATURATION 95.4 % (95.0-99.0); ABG PARTIAL PRESSURE O2 83.1 mmHg (75.0-100.0); ABG STANDARD HCO3 34.5 MEQ/L (22.0-26.0); ABG TOTAL CO2 40.8 MEQ/L (23.0-31.0); ABG pH (ARTERIAL) 7.342 UNITS (7.350-7.450)
[2019-07-19 10:13] LABS: ABG PARTIAL PRESSURE CO2 72.8 mmHg (35.0-45.0)
--- NOTE | 2019-07-19 10:23 | IPN ---
CRITICAL CARE PROGRESS NOTE: DATE OF VISIT: 07/19/2019 I again attended Liv Caicedo. She has remained on a low intermittent mechanical ventilation (IMV) rate of 4 since yesterday morning. She has received only minimal sedation. Maximum temperature (Tmax) overnight 97.1, heart rate generally in the 60s now. Blood pressure 120-140s, and she has been on Levophed for some time now. Input and output midnight to midnight 1640 mL in with 2505 mL out. She is awake, alert and comfortable. She denies dyspnea or pain. Spontaneous tidal volumes remain somewhat low, but most recent arterial blood gas shows a pH 7.356, pCO2 of 57.9, and a pO2 of 122.9. Other laboratories show a white blood cell count 11.2, hemoglobin 8.2, platelet count of 166,000, 87% segmented neutrophils, no bands. Sodium 133, potassium 4.5, chloride 95, CO2 37, BUN 25, creatinine 0.68. Chest x-ray done today again her apical pneumothorax, which I believe represents trapped lung. Her chronic interstitial findings are unchanged. Chest tube and central line remain in place. On exam, she is awake, alert and appropriate. She is globally weak. Pupils react. Sclerae are clear. Trachea is in the midline. Chest shows a right thoracostomy tube. There are some occasional rhonchi that clear with suctioning. Some basilar crackles are unchanged. Pacemaker generator palpable in the left pectoralis region and the incision for that change done recently is healing well. Cardiac exam is distant but regular. Murmur is unchanged. Peripheral pulses are diminished and there is much less edema today. Abdomen soft with active bowel sounds. No convincing organomegaly or masses. Extremities: No cyanosis or clubbing. Neurologically, she is awake, alert and appropriate, but globally weak. Psychiatric generally with normal mood and affect. IMPRESSION: 1. Acute on chronic respiratory failure both hypoxemic and hypercapnic. 2. Mixed acid base disorder both metabolic and respiratory. 3. Atrial fibrillation (AFib) with rapid ventricular response (RVR). 4. Asthma. 5. History of sarcoid. 6. Underlying pulmonary hypertension. 7. Recent seizure with abnormal ECG without seizure focus. RECOMMENDATIONS: At this point, I believe her seizure was precipitated by her alkalosis and I will therefore discontinue her Keppra. We will extubate her this morning. Special attention will be paid to assisting with secretion clearance as her cough is weak. Instead of spirometry positive expiratory pressure (PEP) therapy and EzPAP have all been ordered. I have spoken with respiratory therapy and we will be aggressive in that regard. I also believe she would benefit from physical therapy and that will be started today as well. She is looking better from an electrolyte standpoint and hopefully we can avoid the disturbance with which she presented to the hospital recurring. She still has significant drainage from her chest tube. We will continue to see how that goes. She has much less in the way of peripheral edema. Her AFib is under much better control, and Dr. Gonzales is managing that. He does follow her as an outpatient as well. We will continue her current inhalers for asthma. We will proceed as outlined above. Her prognosis however remains guarded at best in view of her weakness and multiorgan dysfunction in view of her advanced age. Further recommendations will be made in the progress record as new information becomes available.
[2019-07-19] MEDS: PANTOPRAZOLE 40MG VIAL (C9113 PER 1) IV SCH (12:30)
[2019-07-19] MEDS: DIGOXIN 0.125 MG TAB PO SCH (12:31)
[2019-07-19] MEDS: bisoproloL fumarate 5 MG TAB PO SCH (12:31)
[2019-07-19] MEDS: AMIODARONE 200 MG TAB (PACERONE) PO SCH ×2 (12:31→20:20)
[2019-07-19] MEDS: APIXABAN 2.5 MG TAB (ELIQUIS) PO SCH ×2 (12:32→20:20)
[2019-07-19] MEDS: TORSEMIDE 20 MG TAB PO SCH (12:32)
[2019-07-19 12:41] LABS: ABG BASE EXCESS 3.7 (-2.0-2.0); ABG HCO3 29.8 MEQ/L (22.0-26.0); ABG O2 SATURATION 97.7 % (95.0-99.0); ABG PARTIAL PRESSURE CO2 53.6 mmHg (35.0-45.0); ABG PARTIAL PRESSURE O2 102.8 mmHg (75.0-100.0); ABG STANDARD HCO3 27.8 MEQ/L (22.0-26.0); ABG TOTAL CO2 31.5 MEQ/L (23.0-31.0); ABG pH (ARTERIAL) 7.363 UNITS (7.350-7.450)
--- NOTE | 2019-07-19 13:11 | IPN ---
DATE OF SERVICE: 07/18/2019 SUBJECTIVE: Liv is seen and examined this morning at the bedside in the intensive care unit. I found her to be much more awake and alert and she followed commands and was cooperative with physical exam, but remains intubated. She has been off of diuretics and IV fluids. Her metabolic alkalosis has improved as has her serum sodium. Temperature 97.5, pulse 59, respiratory rate 13, blood pressure 123/60, saturating 97% on 30% FiO2. Intake yesterday was 2 liters. Urine output yesterday was 1850. Chest tube drainage was 250, equivalent fluid balance. Weight in the bed scale today is 47.5 kg. General: The patient is seen sitting in bed in the ICU with the head of the bed elevated, awake, alert, eyes open, endotracheal tube and orogastric tube in place. Central line present in the right chest along with chest tube. Jugular veins appeared only mildly elevated. Heart sounds were irregular. There is 1+ leg edema present. There are compression devices in place. There is bilateral air movement without audible crackles or wheeze. Abdomen is soft and nontender. There is a Myles catheter draining urine. Neurologic: She follows simple commands. Associate Scientist with hand, wiggles toes and shakes her head. LABS: White count 13.2, hemoglobin 9.2, platelets 179, sodium 130, potassium 5.3, bicarbonate 31, BUN 23, magnesium 2.0. Blood gas - pH 7.34, pCO2 57, pO2 123. Chest x-ray 07/18/2019 - cardiomegaly, right-sided chest tube and improvement in interstitial markings on the right. INPATIENT MEDICATIONS: The patient continues on IV Keppra, albuterol, amiodarone, Symbicort, digoxin, metoprolol, Protonix. She was noted to be started on Eliquis 2.5 mg p.o. twice daily and I started the patient on torsemide 20 mg p.o. daily. PROBLEMS: 1. Respiratory acidosis with metabolic alkalosis. The patient's acid base disorder has improved nicely. Her serum bicarbonate has come down to 30. Pulmonary has adjusted some vent settings. Her pH is much improved at 7.34. She is off of Diamox and amiloride. I have resumed her on oral low-dose loop diuretic. 2. Decompensated right heart failure with hypervolemic hyponatremia. The patient's diuretic regimen was complicated by her prior significant metabolic alkalosis and we had been diuresing her with Diamox and amiloride. Now that her metabolic alkalemia has significantly improved, I have put her on low dose of torsemide. She is not receiving any free water flushes with the tube feeds.
[2019-07-20] VITALS (17 sets, daily range): BP systolic 84–143; BP diastolic 29–62
[2019-07-20 04:42] LABS: BASO % 0.1 % (0.0-1.0); EOS # 0.1 10^3/uL (0.0-0.5); EOS % 1.2 % (0.0-3.0); HEMATOCRIT 27.5 % (36.0-47.0); HEMOGLOBIN 8.4 g/dl (12.0-15.5); LYMPH # 0.5 10^3/uL (1.5-5.0); LYMPH % 5.8 % (24.0-44.0); MEAN CORPUSCULAR HEMOGLOBIN 27.5 pg (27.0-33.0); MEAN CORPUSCULAR HGB CONC 30.5 g/dl (32.0-36.5); MEAN CORPUSCULAR VOLUME 89.9 fl (80.0-96.0); MONO # 0.8 10^3/uL (0.0-0.8); MONO % 9.5 % (0.0-5.0); NEUTROPHILS # 7.3 10^3/uL (1.5-8.5); NEUTROPHILS % 82.9 % (36.0-66.0); PLATELET COUNT, AUTOMATED 191 10^3/uL (150-450); RED BLOOD COUNT 3.06 10^6/uL (4.00-5.40); WHITE BLOOD COUNT 8.9 10^3/uL (4.0-10.0)
[2019-07-20 05:07] LABS: BLOOD UREA NITROGEN 23 MG/DL (7-18); CALCIUM LEVEL 8.2 MG/DL (8.8-10.2); CARBON DIOXIDE LEVEL 37 MEQ/L (21-32); CHLORIDE LEVEL 93 MEQ/L (98-107); CREATININE FOR GFR 0.61 MG/DL (0.55-1.30); GLOMERULAR FILTRATION RATE > 60.0 (>39); GLUCOSE, FASTING 101 MG/DL (70-100); MAGNESIUM LEVEL 1.9 MG/DL (1.8-2.4); POTASSIUM SERUM 4.1 MEQ/L (3.5-5.1); SODIUM LEVEL 135 MEQ/L (136-145)
--- NOTE | 2019-07-20 07:27 | IPN ---
DATE OF SERVICE: 07/19/2019 SUBJECTIVE: The patient was seen and examined at the bedside today morning in the intensive care unit (ICU). The patient is still intubated, but she is not sedated. She is awake and able to follow commands. The pulmonary team is planning to extubate her today. Her metabolic alkalosis has resolved. Renal function is stable and hyponatremia is also getting better. OBJECTIVE: Vital Signs: Temperature is 97.9 degrees Fahrenheit, blood pressure 100/57, pulse is 61, respiratory rate of 20, saturating 99% on 30% FiO2. Intake and Output: Urine output recorded as 2.2 liters yesterday, 1.9 liters so far today since overnight. Weight in the bed scale is 45.8 kg. PHYSICAL EXAMINATION: General: The patient is awake and alert, intubated, not sedated at this time. Head and Neck Exam: Extraocular muscles intact. Pupils equally round and reactive to light. She has an endotracheal tube. Neck is supple. She has a right internal jugular (IJ) triple lumen catheter. Cardiovascular: S1, S2. Left-sided automatic implantable cardioverter defibrillator (AICD) is noted. 1+ edema of the bilateral lower extremities. Respiratory: Bilateral equal air entry. She is intubated at this time. No active rales or rhonchi. Abdomen: Soft. Positive bowel sounds. Nontender. No organomegaly. Genitourinary: She has an indwelling Myles catheter. Musculoskeletal: 1+ edema of the bilateral lower extremities. GEOMAGNETIST: The patient is awake on the vent, off sedation, following commands and moving extremities. LAB REVIEW: CBC showed a WBC of 11.2, hemoglobin 8.2 and platelets are 166. ABG done today morning showed pH of 7.35, pCO2 of 57, pO2 of 122, and O2 sat is 98%. BMP showed sodium 133, potassium 4.5, chloride 95, bicarb 37, BUN 25, creatinine 0.68, calcium 7.9, and magnesium is 1.9. IMAGING STUDIES: A chest x-ray was done today morning which showed right-sided pleural drain, increased interstitial markings throughout the lung mills, bilateral parenchymal opacification, and no other significant change. CURRENT INPATIENT MEDICATIONS: The patient's medications were all reviewed by myself. IV Keppra has been stopped. Amiodarone has been changed to 200 mg by mouth twice a day. She continues to be on digoxin 0.125 mcg by mouth daily. Metoprolol has been stopped. She continues to be on torsemide 20 mg by mouth daily, it was started yesterday. ASSESSMENT/PLAN: 1. Chronic respiratory acidosis with metabolic alkalosis. The patient was alkalotic initially. Metabolic alkalosis has resolved. Diamox has been stopped. The pH is optimal at this time. Okay to continue the diuretics. 2. Acute on for chronic decompensated cor pulmonale. Continue current dose of torsemide 20 mg daily. The patient is in negative fluid balance. If needed, diuretic dose will be increased tomorrow morning. 3. Hyponatremia. The patient has hypervolemic hyponatremia. Continue current dose of torsemide. Sodium level is improving. 4. Recurrent right-sided pleural effusion. The patient has a chest tube which is draining. and she is being diuresed with torsemide. 5. Atrial fibrillation. The patient is currently anticoagulated with Eliquis. She is getting amiodarone and digoxin. Heart rate is controlled. The rest of the management is as per cardiology. Total critical care time spent in the management of this patient today morning in the ICU was 40 minutes.
[2019-07-20] MEDS: SYMBICORT 80/4.5MCG INHALER 6GM INH SCH ×2 (07:43→19:23)
[2019-07-20] MEDS: TORSEMIDE 20 MG TAB PO SCH ×2 (08:26→21:13)
[2019-07-20] MEDS: PANTOPRAZOLE 40MG VIAL (C9113 PER 1) IV SCH (08:26)
[2019-07-20] MEDS: bisoproloL fumarate 5 MG TAB PO SCH (08:26)
[2019-07-20] MEDS: AMIODARONE 200 MG TAB (PACERONE) PO SCH (08:27)
[2019-07-20] MEDS: APIXABAN 2.5 MG TAB (ELIQUIS) PO SCH ×2 (08:27→21:13)
[2019-07-20] MEDS: DIGOXIN 0.125 MG TAB PO SCH (08:27)
[2019-07-20 09:15] LABS: ABG BASE EXCESS 12.4 (-2.0-2.0); ABG HCO3 39.6 MEQ/L (22.0-26.0); ABG O2 SATURATION 99.4 % (95.0-99.0); ABG PARTIAL PRESSURE O2 178.1 mmHg (75.0-100.0); ABG STANDARD HCO3 36.2 MEQ/L (22.0-26.0); ABG TOTAL CO2 41.7 MEQ/L (23.0-31.0); ABG pH (ARTERIAL) 7.372 UNITS (7.350-7.450)
[2019-07-20 09:18] LABS: ABG PARTIAL PRESSURE CO2 69.7 mmHg (35.0-45.0)
--- NOTE | 2019-07-20 09:20 | CCN ---
CRITICAL CARE PROGRESS NOTE: DATE OF VISIT: 07/20/2019 HISTORY OF PRESENT ILLNESS: I again attended Liv Caicedo here in the intensive care unit. The patient has been examined and chart reviewed. I spoke at length with her bedside nurse. She is feeling much better today. Is a little stronger. Her voice is clearly stronger. She denies dyspnea. She has been on and off noninvasive and has been off for a little over an hour now. She still has significant issues with secretions but is able to clear them a little better today than yesterday, having spoken with the respiratory therapist in charge of her care today. Maximum temperature (Tmax) overnight 98.1, blood pressure 84-130 systolic. She has not required vasopressors. Heart rate generally in the 60s, intermittently pacer-dependent. Respiratory rate 18-20 without accessory muscle use. She drained 180 mL out of her chest tube overnight. Intake and output (I and O) midnight to midnight 645 mL in with 2445 mL out. Most recent laboratories show a white blood cell count 8.9, hemoglobin 8.4, platelet count of 191,000, 82.9% segmented neutrophils, no bands. Sodium 135, potassium 4.1, chloride 93, CO2 37, BUN 23, creatinine 0.61, glucose of 101. Repeat blood gas this morning is pending. Gas done yesterday after several hours on noninvasive support showed a pH of 7.363, PCO2 down to 53.6, and pO2 of 102.8. No new chest x-ray yet today. On exam, this is an elderly female, comfortable in bed. She is still weak but looks stronger than yesterday. HEENT: Is otherwise generally normocephalic, atraumatic. Pupils react. Neck with diminished mobility consistent with age. Trachea is in the midline. Mucous membranes are moist, airway is class 2. Chest shows her right thoracostomy tube. Dressing is intact. Expansion is reasonably symmetric. There is reasonable air entry at the right base today. There are some faint crackles at the bases. No convincing rubs. Occasional rhonchi clears with cough. Pacemaker generator palpable in the left pectoralis region. Cardiac exam is generally regular. Her harsh systolic murmur is unchanged. Peripheral pulses palpable. There is only minimal edema today. Abdomen is soft with active bowel sounds. No convincing organomegaly or masses. Extremities: No cyanosis or clubbing. Neurologically, she is awake, alert, and appropriate, though globally weak. Psychiatric generally is with normal mood and affect. IMPRESSION: 1. Acute on chronic respiratory failure, both hypoxemic and hypercapnic. 2. Mixed acid base disorder. 3. Cor. pulmonale. 4. Asthma. 5. Sarcoid. 6. Pacemaker dependent. 7. Atrial fibrillation (AFib) with rapid ventricular response (RVR). 8. Valvular heart disease. RECOMMENDATIONS: At this point, she is at least a little stronger. I had a long discussion with her regarding her hospital course, as she is unaware of much of it. She has very complex multiorgan dysfunction and surprisingly has done much better than I would have expected. She wonders about discharge planning. We will begin strides towards that today. I will allow her to be off noninvasive for a little longer today. Will allow her to get out of bed. Physical therapy and occupational therapy have been ordered to be involved in her care. She is tolerating a diet. She is still draining a fair amount out of her chest tube. The issue will be what to do about that since the lung appears most likely to be trapped, since it does not come completely to the chest wall; and, therefore, really she cannot be sclerosed. In that regard, once the tube is out, she will refill that chest. I think we need to pay very close attention in the outpatient setting to her fluid status and her electrolytes. At this point, we will proceed as outlined above. Will continue to monitor her closely. In view of her age and her multiorgan dysfunction, her prognosis long-term remains very guarded. Further recommendations will be made in the progress record as new information becomes available. MUSA
[2019-07-20 11:33] LABS: FERRITIN 32 NG/ML (8-252); IRON (FE) 30 UG/DL (50-170); PERCENT SATURATION 11.9 % (13.2-45.0); TOTAL IRON BINDING CAPACITY 252 UG/DL (250-450)
--- NOTE | 2019-07-20 15:29 | REP ---
CT CHEST WITHOUT IV CONTRAST: CT chest performed without IV contrast. Sagittal and coronal reconstruction images are performed. Comparison is made with a prior study 07/15/2019 and 04/05/2019. There is a right chest tube in place. There is a very small right apical pneumothorax. A tiny amount of right pleural fluid/thickening is seen posteriorly and inferiorly. There is a small left pleural effusion. Diffuse interstitial densities are seen throughout both lungs likely on the basis of interstitial fibrosis. There are confluent parenchymal opacities surrounding the bronchioles in the right upper and lower lobes and right middle lobe. These findings are seen to a similar extent in the lingula and to a lesser extent in the remaining left upper lobe and left lower lobe. These may represent areas of fibroatelectasis or peribronchiolar infiltrates. Large calcified granuloma is seen in the anterior right lower lobe. There are diffuse calcifications of the sifuentes of the bronchioles bilaterally. Thoracic aorta demonstrates mild atherosclerotic calcification with no aneurysm. The pulmonary trunk is dilated. There is mild cardiomegaly. No pericardial effusion is seen. No axillary or mediastinal adenopathy is seen. There are calcified left infrahilar lymph nodes present. There are degenerative changes of the spine. IMPRESSION: Right chest tube in place with a small right apical pneumothorax. There is a small left pleural effusion. There are peribronchiolar confluent parenchymal opacities bilaterally representing either areas of fibroatelectasis and/or peribronchiolar infiltrates. There are also diffuse interstitial densities bilaterally likely on the basis of fibrosis. Electronically Signed by Drew Corral MD 07/20/2019 04:14 P
[2019-07-20] MEDS: IRON SUCROSE 200 MG in NS 100 ML IV SCH (21:14)
[2019-07-21] VITALS (11 sets, daily range): BP systolic 90–126; BP diastolic 50–60
--- NOTE | 2019-07-21 05:04 | IPN ---
DATE: 07/20/2019 SUBJECTIVE: Patient was seen and examined at the bedside today morning. She is afebrile, hemodynamically stable. She was extubated yesterday. She is currently on nasal cannula. Her urine output is also getting better. Patient still has a chest tube on the right side, and chest tube drainage is slowly decreasing. OBJECTIVE: Vital signs: Temperature is 97.7 degrees Fahrenheit, blood pressure 135/62, pulse is 61, respiratory rate of 20, saturating 96% on nasal cannula at 1 liter. Intake and output: Urine output recorded is 2.1 liters yesterday, 1.1 liters so far today since overnight. Chest tube drainage is 130 mL. Weight on the bed scale is 43.4 kg. PHYSICAL EXAMINATION: General: Patient is awake, alert, oriented times three, sitting up in the bed, in no apparent distress. Head and neck exam: Extraocular muscles intact. Pupils equally round and reactive to light. Mucous membranes are moist. She is wearing a nasal cannula. Neck is supple. There is no jugular venous distention (JVD). Cardiovascular: S1, S2, regular rate. 1+ edema of the bilateral lower extremities. She has a right subclavian triple-lumen catheter, which is being removed now. Respiratory: Mild expiratory rhonchi bilaterally at the bases, and she has a right-sided chest tube. Abdomen: Is soft. Positive bowel sounds. Nontender. Genitourinary: Bladder is not palpable. Musculoskeletal: 1+ edema of the bilateral lower extremities, and she is wearing compression stockings. Central nervous system (LEARNING AND DEVELOPMENT MANAGER): No focal deficit. Power is 5/5 in bilateral upper extremities. LAB REVIEW: CBC showed WBC of 8.9, hemoglobin 8.4, platelets are 191. BMP showed sodium 135, potassium 4.1, chloride 93, bicarbonate 37, BUN 23, creatinine 0.6, calcium is 8.2, iron level is 30, transferrin saturation is 11.9, ferritin is 32. IMAGING: A CT of the chest was done today, which showed right-sided chest tube in place with small apical pneumothorax, small left pleural effusion, and diffuse interstitial densities bilaterally, likely on the basis of fibrosis. CURRENT INPATIENT MEDICATIONS: Patient's medications were all reviewed by me. Amiodarone has been changed to 200 mg by mouth daily. She continues to be on digoxin, as well. I have changed the torsemide dose to 20 mg by mouth twice a day. ASSESSMENT AND PLAN: 1. Acute on chronic decompensated cor pulmonale. Patient is diuresing well on torsemide 20 mg daily. However, she still has lower extremity edema. Chest tube drainage is slowing down. I have increased the torsemide dose to 20 mg by mouth twice a day. 2. Hyponatremia. Patient has hypervolemic hyponatremia. Sodium level is improving with the diuresis. 3. Iron deficiency anemia. I have started the patient on intravenous (IV) Venofer. No need of blood transfusion at this time. 4. Atrial fibrillation. Heart rate is controlled. She is anticoagulated with Eliquis. Amiodarone and digoxin dosage is as per cardiology.
[2019-07-21 05:15] LABS: BASO % 0.1 % (0.0-1.0); EOS # 0.1 10^3/uL (0.0-0.5); EOS % 0.8 % (0.0-3.0); HEMATOCRIT 29.3 % (36.0-47.0); HEMOGLOBIN 8.9 g/dl (12.0-15.5); LYMPH # 0.5 10^3/uL (1.5-5.0); LYMPH % 5.4 % (24.0-44.0); MEAN CORPUSCULAR HGB CONC 30.4 g/dl (32.0-36.5); MEAN CORPUSCULAR VOLUME 92.1 fl (80.0-96.0); MONO # 0.9 10^3/uL (0.0-0.8); MONO % 10.4 % (0.0-5.0); NEUTROPHILS # 7.3 10^3/uL (1.5-8.5); NEUTROPHILS % 82.7 % (36.0-66.0); PLATELET COUNT, AUTOMATED 232 10^3/uL (150-450); RED BLOOD COUNT 3.18 10^6/uL (4.00-5.40); WHITE BLOOD COUNT 8.8 10^3/uL (4.0-10.0)
[2019-07-21 05:59] LABS: BLOOD UREA NITROGEN 22 MG/DL (7-18); CARBON DIOXIDE LEVEL 41 MEQ/L (21-32); CHLORIDE LEVEL 93 MEQ/L (98-107); CREATININE FOR GFR 0.64 MG/DL (0.55-1.30); GLOMERULAR FILTRATION RATE > 60.0 (>39); GLUCOSE, FASTING 88 MG/DL (70-100); MAGNESIUM LEVEL 1.7 MG/DL (1.8-2.4); POTASSIUM SERUM 3.5 MEQ/L (3.5-5.1); SODIUM LEVEL 139 MEQ/L (136-145)
[2019-07-21] MEDS: SYMBICORT 80/4.5MCG INHALER 6GM INH SCH ×2 (07:37→19:48)
[2019-07-21] MEDS ORDERED: POTASSIUM CHL PWD 20 MEQ PACKET PO ONE (08:30)
[2019-07-21] MEDS ORDERED: MAG SULF 1GM/100ML (MAG RUN) 1 GM in IV 1 EA IV ONE (08:30)
[2019-07-21] MEDS: APIXABAN 2.5 MG TAB (ELIQUIS) PO SCH ×2 (08:51→20:59)
[2019-07-21] MEDS: PANTOPRAZOLE 40MG VIAL (C9113 PER 1) IV SCH (08:51)
[2019-07-21] MEDS: TORSEMIDE 20 MG TAB PO SCH ×2 (08:52→20:59)
[2019-07-21] MEDS: AMIODARONE 200 MG TAB (PACERONE) PO SCH (08:52)
[2019-07-21] MEDS: DIGOXIN 0.125 MG TAB PO SCH (08:52)
[2019-07-21] MEDS: bisoproloL fumarate 5 MG TAB PO SCH (08:53)
--- NOTE | 2019-07-21 09:21 | IPN ---
DATE OF SERVICE: 07/21/2019 SUBJECTIVE: Ms. Caicedo was seen and examined this morning during bedside rounds. Overnight, she did not need to use the BiPAP, but she did desaturate to the mid 80s, went off of oxygen, and had to be placed back on to 1 liter nasal cannula. This morning, she was satting at 99% on the 1 liter nasal cannula. When we tried to remove it, she did desaturate to 85% on room air and was placed back on 0.5 liters and tolerating it very well. It was reported that she also had her diet advanced. Yesterday, she was unable to swallow some of the hard food as it would get stuck in her throat, but tolerated a mechanical soft diet. She states at home she usually eats soft meals because it is not as harsh on her throat. She denies any cough, fevers, chills, night sweats, constipation or diarrhea. She has no complaints this morning and would like to know when she is going home. There were no other overnight events or telemetry events noted. PHYSICAL EXAMINATION: Vitals: Temperature 97.6, pulse 60 ventricular paced, respiratory rate 20, blood pressure 107/53 (77), pulse oximetry 97% on 1 liter nasal cannula. Intake total 770 mL, output total 1605 mL, balance of negative 835 mL. Chest tube output in the last 24 hours 180 mL and 1 bowel movement. General: This is a very pleasant, 74 year old, cachectic female who is sitting in the bed and does not appear in any respiratory distress and appropriately answering questions. Alert and oriented times three. HEENT: Atraumatic, normocephalic. Prominent SCM muscles, but no obvious jugular venous distention surprisingly noted. Lungs: Regular rate. Pacemaker in place, ventricular paced. Harsh 3/6 systolic murmur appreciated loudest at the fifth intercostal space on the left. Lungs: Clear to auscultate bilaterally. Slightly diminished on the right side, but good aeration can be appreciated. No dullness to percussion noted. No wheezing or rhonchi noted. Chest tube in place on the right side. No erythema, no drainage noted. There is no air leak noted on the Pleur-evac. Total of 180 mL put out in the last 24 hours. GI: Soft abdomen. Nontender. Lower Extremities: Very minimal pitting edema. Legs look much better. Neurologic: Alert and oriented times three, no neuro deficits noted. LABORATORIES: WBC 8.8, hemoglobin 8.9, hematocrit 29.3, platelets 233. Chemistries: Sodium 139, potassium 2.5, chloride 93, carbon dioxide 41, anion gap 5, BUN 22, creatinine 0.64, fasting glucose 88, calcium 8.0, magnesium 1.7. Blood cultures times two negative for any growth. Body fluid culture Bacilles species few, but not anthrax. Body fluid anaerobic culture negative. IMAGING: CT of the chest with right chest tube in place with small right apical pneumothorax. There is a small left pleural effusion. There are peribronchial confluent parenchymal opacities bilaterally representing either areas of fibroatelectasis and/or peribronchiolar infiltrates. There are also diffuse interstitial densities bilaterally likely on the basis of fibrosis. ASSESSMENT AND PLAN: 1. Acute on chronic respiratory failure, hypoxic and hypercarbic. 2. Mixed acid base disorder. 3. Cor pulmonale with SV pressures of 70 mmHg. 4. History of asthma. 5. History of sarcoid. 6. Pacemaker dependent. 7. History of atrial fibrillation, on anticoagulation. 8. History of valvular heart disease. RECOMMENDATIONS: From a pulmonary standpoint, the patient is currently stable. She has been off of BiPAP for the last 24 hours and she is currently on nasal cannula. Overnight, she did require 1 liter of nasal cannula and when we tried to remove her this morning she did desaturate to 85% on room air, so she is tolerating 0.5 liters nasal cannula at this current time. We recommend her to keep on oxygen to maintain sats between 88-92% and continue to diurese her per nephrology's recommendations. Her potassium this morning was 3.5 with a magnesium of 1.7. Because she is actively getting diuresed, we will replace her potassium with KCl liquid as well as one mag run. The patient did complain of having some difficulty swallowing, so will get a bedside swallow as well. From a pulmonary standpoint, she is currently stable and we will be signing off. The hospitalist team was called with these recommendations. Thank you for this consultation. If there are any future questions or recommendations, please feel free to reconsult us. ADDENDUM: I have personally rounded on the patient this morning with the resident. The patient is a 74-year-old female ventricularly paced currently with a pulse of 60. No longer in rapid ventricular response (RVR), currently on digoxin, Eliquis, torsemide, amiodarone and bisoprolol, with an adequate blood pressure of 116/55. She is 98% on 1 liter of oxygen. Currently, has no respiratory distress. Has some difficulty swallowing, we have decided to order a swallow evaluation. Overall, her pulmonary status is at baseline. Therefore, we will be signing off today. The assessment and plan was reviewed with the resident and this was communicated to the attending physician. We would be happy to see this patient again should the need arise.
--- NOTE | 2019-07-21 11:08 | IPNPDOC ---
Text Note Date of Service The patient was seen on 07/21/19. NOTE Subjective: Patient stated that she feels much better today, her breathing ma rkedly improved. She currently on the 0.5 L of oxygen via nasal cannula. Chest tube was removed today by Dr. Mathis Objective: VITAL SIGNS: Please see below. GENERAL: awake, alert, NAD, cachectic HEENT: NCAT, anicteric sclera, KARLENE NECK: supple, no JVD CARDIOVASCULAR EXAMINATION: S1S2, harsh systolic murmur regular rate/rhythm, pacemaker in place RESPIRATORY EXAMINATION: Diminished lung sounds bilaterally ABDOMINAL EXAMINATION: positive bowel sounds x 4, NT EXTREMITIES: no cyanosis, clubbing, edema SKIN: warm, no rashes. NEUROLOGICAL EXAMINATION: AAO x 3, no motor/sensory deficits Patient is 74 years old female with past mental history of A. fib (on Eliquis), CHF (unknown EF), Symptomatic Betito s/p PM (2016), HTN, DLP, Chronic hypoxic respiratory failure (on 3L O2), Moderate Persistent Asthma, Restrictive lung disease 2/2 Sarcoidosis, Allergic Rhinitis and GERD who was transferred from [facility] for right-sided pleural effusion. During hospital stay patient received therapy with chest tube placement, pleural effusion was drained and it was transudative, negative for malignancy. Subsequently patient developed acute respiratory failure requiring intubation. Also, patient developed acute on chronic decompensated cor pulmonale and rapid ventricular rate with paroxysmal atrial fibrillation. On 07/20/19 patient was successfully extubated. Acute on chronic respiratory failure Resolved Secondary to pleural effusion Patient was extremely extubated yesterday Acute on chronic decompensated cor pulmonale. Patient is euvolemic Continue treatment with diuresis Electrolyte imbalance Potassium replaced Recurrent R sided pleural effusion Most likely 2/2 congestive heart failure Patient has been treated with chest tube which was removed today in the morning Hyponatremia resolved Atrial fibrillation Heart rate is under control Continue oral targeted anticoagulation Iron deficiency anemia Will continue IV iron infusion I will add iron supplementation by mouth Oropharyngeal dysfunction Diet was modified Cachexia BMI 15.4 Low albumin, reduced muscles mass Full swatcher assessment Deconditioning Due to prolonged hospitalization Continue PT/OT VS,Fishbone, I+O VS, Fishbone, I+O Laboratory Tests 07/21/19 04:40 Vital Signs Date Time Temp Pulse Resp B/P (MAP) Pulse Ox O2 Delivery O2 Flow Rate FiO2 07/21/19 09:00 61 18 93 Nasal Cannula 0.5 07/21/19 08:53 111/52 07/21/19 08:00 98.3 07/20/19 12:00 30 I&O- Last 24 Hours up to 6 AM 07/21/19 06:00 Intake Total 650 ml Output Total 1900 ml Balance -1250 ml JASON VELAZQUEZ DO July 21, 2019 11:08
[2019-07-21] MEDS ORDERED: SLF 3 ML SYR IV PRN (13:00)
[2019-07-21] MEDS: SLF 3 ML SYR IV SCH ×2 (14:01→21:00)
[2019-07-21] MEDS: IRON SUCROSE 200 MG in NS 100 ML IV SCH (21:00)
[2019-07-22] VITALS: BP 111/54
[2019-07-22 04:00] VITALS: BP 101/46
[2019-07-22] MEDS: SLF 3 ML SYR IV SCH ×3 (05:14→20:43)
[2019-07-22 05:16] LABS: BASO % 0.2 % (0.0-1.0); EOS # 0.1 10^3/uL (0.0-0.5); EOS % 0.9 % (0.0-3.0); HEMATOCRIT 29.3 % (36.0-47.0); HEMOGLOBIN 8.9 g/dl (12.0-15.5); LYMPH # 0.5 10^3/uL (1.5-5.0); LYMPH % 5.6 % (24.0-44.0); MEAN CORPUSCULAR HEMOGLOBIN 27.6 pg (27.0-33.0); MEAN CORPUSCULAR HGB CONC 30.4 g/dl (32.0-36.5); MONO # 0.9 10^3/uL (0.0-0.8); MONO % 10.9 % (0.0-5.0); NEUTROPHILS # 6.6 10^3/uL (1.5-8.5); NEUTROPHILS % 81.8 % (36.0-66.0); PLATELET COUNT, AUTOMATED 270 10^3/uL (150-450); RED BLOOD COUNT 3.22 10^6/uL (4.00-5.40)
[2019-07-22 05:38] LABS: BLOOD UREA NITROGEN 23 MG/DL (7-18); CALCIUM LEVEL 8.3 MG/DL (8.8-10.2); CARBON DIOXIDE LEVEL 43 MEQ/L (21-32); CHLORIDE LEVEL 94 MEQ/L (98-107); CREATININE FOR GFR 0.82 MG/DL (0.55-1.30); GLOMERULAR FILTRATION RATE > 60.0 (>39); GLUCOSE, FASTING 95 MG/DL (70-100); MAGNESIUM LEVEL 1.7 MG/DL (1.8-2.4); POTASSIUM SERUM 3.5 MEQ/L (3.5-5.1); SODIUM LEVEL 141 MEQ/L (136-145)
[2019-07-22] MEDS: SYMBICORT 80/4.5MCG INHALER 6GM INH SCH ×2 (07:21→20:06)
[2019-07-22 08:00] VITALS: BP 108/55
[2019-07-22] MEDS: PANTOPRAZOLE 40MG VIAL (C9113 PER 1) IV SCH (08:57)
[2019-07-22] MEDS: AMIODARONE 200 MG TAB (PACERONE) PO SCH (08:58)
[2019-07-22] MEDS: APIXABAN 2.5 MG TAB (ELIQUIS) PO SCH ×2 (08:58→20:43)
[2019-07-22] MEDS: bisoproloL fumarate 5 MG TAB PO SCH (08:59)
[2019-07-22] MEDS: DIGOXIN 0.125 MG TAB PO SCH (08:59)
[2019-07-22] MEDS: TORSEMIDE 20 MG TAB PO SCH (08:59)
[2019-07-22] MEDS ORDERED: POTASSIUM CHLORIDE 10 MEQ SR TABLET PO SCH (09:00)
[2019-07-22] MEDS ORDERED: POTASSIUM CHL PWD 20 MEQ PACKET PO SCH (09:00)
--- NOTE | 2019-07-22 10:27 | IPNPDOC ---
Text Note Date of Service The patient was seen on 07/22/19. NOTE Subjective: Patient stated that she feels much better today, patient has lenka rkable progress in physical therapy. Her breathing continues to improve Objective: VITAL SIGNS: Please see below. GENERAL: awake, alert, NAD, cachectic HEENT: NCAT, anicteric sclera, KARLENE NECK: supple, no JVD CARDIOVASCULAR EXAMINATION: S1S2, harsh systolic murmur regular rate/rhythm, pacemaker in place RESPIRATORY EXAMINATION: Diminished lung sounds bilaterally ABDOMINAL EXAMINATION: positive bowel sounds x 4, NT EXTREMITIES: no cyanosis, clubbing, edema SKIN: warm, no rashes. NEUROLOGICAL EXAMINATION: AAO x 3, no motor/sensory deficits Patient is 74 years old female with past mental history of A. fib (on Eliquis), CHF (unknown EF), Symptomatic Betito s/p PM (2017), HTN, DLP, Chronic hypoxic respiratory failure (on 3L O2), Moderate Persistent Asthma, Restrictive lung disease 2/2 Sarcoidosis, Allergic Rhinitis and GERD who was transferred from [facility] for right-sided pleural effusion. During hospital stay patient received therapy with chest tube placement, pleural effusion was drained and it was transudative, negative for malignancy. Subsequently patient developed acute respiratory failure requiring intubation. Also, patient developed acute on chronic decompensated cor pulmonale and rapid ventricular rate with paroxysmal atrial fibrillation. On 07/20/19 patient was successfully extubated. Acute on chronic respiratory failure Resolved Secondary to pleural effusion Patient was extremely extubated yesterday Acute on chronic decompensated cor pulmonale. Patient is euvolemic Continue treatment with diuresis Electrolyte imbalance Potassium replaced Magnesium replaced Recurrent R sided pleural effusion Most likely 2/2 congestive heart failure Patient has been treated with chest tube which was removed on 07/21/19 Hyponatremia resolved Atrial fibrillation Heart rate is under control Continue oral targeted anticoagulation Iron deficiency anemia Will continue IV iron infusion I will add iron supplementation by mouth Oropharyngeal dysfunction Diet was modified Cachexia BMI 15.4 Low albumin, reduced muscles mass Full source water protection specialist assessment Deconditioning Due to prolonged hospitalization Continue PT/OT VS,Fishbone, I+O VS, Fishbone, I+O Laboratory Tests 07/22/19 05:01 Vital Signs Date Time Temp Pulse Resp B/P (MAP) Pulse Ox O2 Delivery O2 Flow Rate FiO2 07/22/19 08:59 66 108/55 07/22/19 08:00 97.9 18 96 Nasal Cannula 0.5 07/20/19 12:00 30 I&O- Last 24 Hours up to 6 AM 07/22/19 06:00 Intake Total 690 ml Output Total 200 ml Balance 490 ml JASON VELAZQUEZ DO July 22, 2019 10:27
[2019-07-22] MEDS: IRON POLYSAC (NIFEREX) 150 MG CAP PO SCH (11:58)
[2019-07-22] MEDS: MAGNESIUM GLUCONATE 500 MG TAB PO SCH (11:59)
[2019-07-22 12:00] VITALS: BP 106/53
--- NOTE | 2019-07-22 13:41 | IPN ---
DATE OF SERVICE: 07/22/2019 SUBJECTIVE: The patient was seen and examined at the bedside today morning in the ICU. She is feeling much better. She was on nasal cannula when I saw her in the morning. A chest tube has been removed. She has a good urine output. Renal function is stable. Hyponatremia has improved. OBJECTIVE: Vital Signs: Temperature is 98.3 degrees Fahrenheit, blood pressure 115/55, pulse is 61, respiratory rate of 18, saturating 93% on nasal cannula at 1/2 liter. Intake and Output: Urine output recorded is 1.4 liters yesterday, 648 miles so far today since overnight. Weight in the bed scale is 40.7 kg, which is slowly decreasing because of diuretics. PHYSICAL EXAMINATION: General: The patient is awake, alert, oriented times three, laying in bed, wearing nasal cannula. Head and Neck Exam: Extraocular muscles intact. Pupils equally round and reactive to light. Mucous membranes are moist. Neck is supple. There is mildly elevated jugular venous distention (JVD). Cardiovascular: S1, S2, regular rate. 1+ edema of the bilateral lower extremities. Respiratory: Mildly decreased breath sounds at the bases. Right-sided chest tube has been removed. There is a dressing on the right chest wall. Abdomen: Soft, positive bowel sounds. Nontender. No organomegaly. Genitourinary: She has an indwelling Myles catheter. Musculoskeletal: 1+ edema of the bilateral lower extremities. Central Nervous System (ELECTRICAL LOGGER): No focal deficit. Power is 5/5 in bilateral upper extremities. LAB REVIEW: CBC showed WBC 8.8, hemoglobin 8.9, platelets of 232. BMP showed sodium 139, potassium 3.5, chloride 93, bicarbonate 41, BUN 22, creatinine 0.64, calcium is 8, magnesium 1.7. CURRENT INPATIENT MEDICATIONS: The patient's medications were all reviewed by myself. He was started on Venofer yesterday. He is currently on torsemide 20 mg by mouth twice a day, and the patient has been started on potassium chloride 20 mEq by mouth daily. ASSESSMENT AND PLAN: 1. Acute on chronic decompensated cor pulmonale. The patient is currently on torsemide 20 mg by mouth twice a day. He is diuresing well. Continue current dose. 2. Hyponatremia. It was hypervolemic hyponatremia which is improving with the diuretics. 3. Hypokalemia. The patient has been started on potassium chloride 220 mEq by mouth daily. 4. Iron-deficiency anemia. The patient was started on Venofer yesterday. Hemoglobin level is improving. 5. Atrial fibrillation. Heart rate is controlled with amiodarone and digoxin. She continues to be on Eliquis. 6. Chronic hypercapnia with compensatory metabolic alkalosis. The patient's bicarbonate stays in high 30s to low 40s, which is a compensation for chronic CO2 retention. Latest arterial blood gas (ABG) done on 07/20/2019 was within the acceptable range.
[2019-07-22 16:00] VITALS: BP 106/44
[2019-07-22 20:00] VITALS: BP 118/56
[2019-07-22] MEDS: IRON SUCROSE 200 MG in NS 100 ML IV SCH (20:43)
[2019-07-22] MEDS: POTASSIUM CHL PWD 20 MEQ PACKET PO SCH (20:43)
[2019-07-23] VITALS: BP 110/55
[2019-07-23 04:00] VITALS: BP 107/49
[2019-07-23] MEDS: SLF 3 ML SYR IV SCH ×3 (04:33→20:45)
[2019-07-23 05:12] LABS: BASO % 0.1 % (0.0-1.0); EOS # 0.1 10^3/uL (0.0-0.5); EOS % 1.3 % (0.0-3.0); HEMATOCRIT 30.1 % (36.0-47.0); HEMOGLOBIN 8.8 g/dl (12.0-15.5); LYMPH # 0.6 10^3/uL (1.5-5.0); LYMPH % 7.8 % (24.0-44.0); MEAN CORPUSCULAR HEMOGLOBIN 27.1 pg (27.0-33.0); MEAN CORPUSCULAR HGB CONC 29.2 g/dl (32.0-36.5); MEAN CORPUSCULAR VOLUME 92.6 fl (80.0-96.0); MONO # 0.8 10^3/uL (0.0-0.8); MONO % 10.7 % (0.0-5.0); NEUTROPHILS # 5.6 10^3/uL (1.5-8.5); NEUTROPHILS % 79.4 % (36.0-66.0); PLATELET COUNT, AUTOMATED 303 10^3/uL (150-450); RED BLOOD COUNT 3.25 10^6/uL (4.00-5.40)
[2019-07-23 05:38] LABS: BLOOD UREA NITROGEN 22 MG/DL (7-18); CALCIUM LEVEL 8.4 MG/DL (8.8-10.2); CARBON DIOXIDE LEVEL 43 MEQ/L (21-32); CHLORIDE LEVEL 95 MEQ/L (98-107); CREATININE FOR GFR 0.72 MG/DL (0.55-1.30); GLOMERULAR FILTRATION RATE > 60.0 (>39); GLUCOSE, FASTING 84 MG/DL (70-100); MAGNESIUM LEVEL 1.7 MG/DL (1.8-2.4); POTASSIUM SERUM 4.2 MEQ/L (3.5-5.1); SODIUM LEVEL 139 MEQ/L (136-145)
[2019-07-23] MEDS: SYMBICORT 80/4.5MCG INHALER 6GM INH SCH ×2 (07:22→18:01)
[2019-07-23 08:00] VITALS: BP 111/58
--- NOTE | 2019-07-23 08:02 | IPN ---
DATE OF VISIT: 07/22/2019 Mrs. Caicedo is seen this morning on her bedside. She is sitting at the edge of bed talking to her son over the phone. She reports feeling much better and her dyspnea has improved. At home she was on 3 liters of oxygen while here now she is requiring only 1/2 liter of oxygen via nasal cannula. She did have bilateral large pleural effusions and required a right-sided chest tube. She is also diuresed with improved volume status. Her most recent imaging was a chest CT scan on 07/20/2019, which showed left-sided pleural effusion but right side sounds much better and pleural effusion has improved. On physical exam, temperature 97.9 degrees Fahrenheit, heart rate 66 per minute and respiratory rate 18 per minute. Blood pressure 108/55 mmHg and oxygen saturation 96% on 1/2 liter of oxygen. Intake and output records from yesterday showed total intake 570 and output 690 mL, which is probably not accurate recording as her urine output is usually is more than 1.6 liters per 24 hours. Her neck veins are not abnormally distended sitting upright. Lungs have diminished breath sounds at left lower base. Right side also sounds slightly diminished. Heart sounds are regular and abdomen soft and nontender. Bowel sounds are normal. Extremities have no cyanosis or clubbing. She is wearing thromboembolic deterrent (DEEDEE) stockings. Today's labs show WBC count 8.0, hemoglobin 8.9 and hematocrit 29.3. Platelets are 270. Sodium 141, potassium 3.5, CO2 43, BUN 23 and creatinine 0.82. Calcium 8.3 and magnesium 1.7. PROBLEMS: 1. Hypoxemia. Her volume status has improved significantly. Pleural effusions have also improved particularly on the right side where she had chest tube placed. She still has a pleural effusion on the left side and we will continue diuresis. However, I am going to cut down her torsemide dose down to 20 mg daily due to worsening metabolic alkalosis. 2. Hypokalemia. This is related to diuresis. She is receiving 20 mEq potassium chloride once a day and I am going to increase it to twice a day. Electrolytes will be checked again tomorrow morning. 3. Hyponatremia. Sodium level has improved and corrected. At this point, no other intervention is needed other than continued diuresis. I would like to diurese her on a slower pace now because of worsening metabolic alkalosis. 4. Anemia. Her anemia is stable and she has already received iron supplement. At this point, we will continue to watch.
[2019-07-23] MEDS: TORSEMIDE 20 MG TAB PO SCH (09:51)
[2019-07-23] MEDS: IRON POLYSAC (NIFEREX) 150 MG CAP PO SCH (09:51)
[2019-07-23] MEDS: POTASSIUM CHL PWD 20 MEQ PACKET PO SCH ×2 (09:51→20:45)
[2019-07-23] MEDS: MAGNESIUM GLUCONATE 500 MG TAB PO SCH (09:51)
[2019-07-23] MEDS: AMIODARONE 200 MG TAB (PACERONE) PO SCH (09:52)
[2019-07-23] MEDS: DIGOXIN 0.125 MG TAB PO SCH (09:52)
[2019-07-23] MEDS: APIXABAN 2.5 MG TAB (ELIQUIS) PO SCH ×2 (09:52→20:45)
[2019-07-23] MEDS: bisoproloL fumarate 5 MG TAB PO SCH (09:52)
[2019-07-23] MEDS: PANTOPRAZOLE 40MG VIAL (C9113 PER 1) IV SCH (10:23)
--- NOTE | 2019-07-23 10:32 | IPNPDOC ---
Text Note Date of Service The patient was seen on 07/23/19. NOTE Subjective: No any acute events overnight. Patient continues to progress in p hysical therapy. Objective: VITAL SIGNS: Please see below. GENERAL: awake, alert, NAD, cachectic HEENT: NCAT, anicteric sclera, KARLENE NECK: supple, no JVD CARDIOVASCULAR EXAMINATION: S1S2, harsh systolic murmur regular rate/rhythm, pacemaker in place RESPIRATORY EXAMINATION: Diminished lung sounds bilaterally ABDOMINAL EXAMINATION: positive bowel sounds x 4, NT EXTREMITIES: no cyanosis, clubbing, edema SKIN: warm, no rashes. NEUROLOGICAL EXAMINATION: AAO x 3, no motor/sensory deficits Patient is 74 years old female with past medical history of A. fib (on Eliquis), CHF (unknown EF), Symptomatic Betito s/p PM (2017), HTN, DLP, Chronic hypoxic respiratory failure (on 3L O2), Moderate Persistent Asthma, Restrictive lung disease 2/2 Sarcoidosis, Allergic Rhinitis and GERD who was transferred from [facility] for right-sided pleural effusion. During hospital stay patient received therapy with chest tube placement, pleural effusion was drained and it was transudative, negative for malignancy. Subsequently patient developed acute respiratory failure requiring intubation. Also, patient developed acute on chronic decompensated cor pulmonale and rapid ventricular rate with paroxysmal atrial fibrillation. On 07/20/19 patient was successfully extubated. Acute on chronic respiratory failure Resolved Secondary to pleural effusion Patient was extubated yesterday Acute on chronic decompensated cor pulmonale. Patient is euvolemic Continue treatment with diuresis Electrolyte imbalance Potassium replaced Magnesium replaced Metabolic alkalosis Will decrease dose of torsemide 20 mg daily Recurrent R sided pleural effusion Most likely 2/2 congestive heart failure Patient has been treated with chest tube which was removed on 07/21/19 Hyponatremia resolved Atrial fibrillation Heart rate is under control Continue oral targeted anticoagulation Iron deficiency anemia Will continue IV iron infusion I will add iron supplementation by mouth Oropharyngeal dysfunction Diet was modified Cachexia BMI 15.4 Low albumin, reduced muscles mass 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
[2019-07-23 12:00] VITALS: BP 137/71
--- NOTE | 2019-07-23 13:09 | IPN ---
DATE OF VISIT: 07/15/2019 Mrs. Caicedo is seen this morning on her bedside. She is feeling well and denies any nausea, vomiting, dyspnea or chest pain. She reports sleeping well at night. She had bilateral large pleural effusions and required a chest tube placement on the right side. She still has some left pleural effusion, for which she is being diuresed. On physical exam, temperature 97.8 degrees Fahrenheit, heart rate 68 per minute and respiratory rate 17 per minute. Blood pressure 111/58 mmHg and saturation 99% on 1/2 liter oxygen. Head is atraumatic. Neck supple and no abnormal jugular venous distention (JVD) noticed. She has no oral thrush or ulcers. Heart sounds regular and lungs with diminished breath sounds in left lower half. She has few bibasilar rales. Abdomen soft and nontender and bowel sounds are normal. Extremities without any cyanosis or clubbing. Neurologically, she is awake, alert and oriented times three. Today's labs show WBC count 7.0, hemoglobin 8.8 and hematocrit 30. Platelets 303. Sodium 139, potassium 4.2, chloride 95, CO2 43, BUN 22 and creatinine 0.72. Calcium 8.4 and magnesium 1.7. PROBLEMS: 1. Bilateral pleural effusions. Right-sided pleural effusions improved with chest tube placement. She still has some pleural effusion on the left and continues with torsemide 20 mg daily. I will not increase the dose at this point due to significant metabolic alkalosis. 2. Hypokalemia. Her potassium level has corrected with supplement and no other changes needed today. 3. Anemia. Patient has received IV iron and remains on oral iron supplement. She did have iron deficiency. She will need to continue iron supplement for long-term. At this point, there is no emergent need for a transfusion. 4. Generalized weakness and deconditioning. Patient seems to be doing well and she is anticipating discharge to home within the next day or two.
[2019-07-23 16:00] VITALS: BP 119/54
[2019-07-23 20:00] VITALS: BP 112/51
[2019-07-24] VITALS: BP 106/49
[2019-07-24 04:00] VITALS: BP 111/58
[2019-07-24 04:30] LABS: EOS # 0.1 10^3/uL (0.0-0.5); EOS % 1.3 % (0.0-3.0); HEMATOCRIT 28.1 % (36.0-47.0); HEMOGLOBIN 8.4 g/dl (12.0-15.5); LYMPH # 0.5 10^3/uL (1.5-5.0); LYMPH % 7.7 % (24.0-44.0); MEAN CORPUSCULAR HEMOGLOBIN 27.6 pg (27.0-33.0); MEAN CORPUSCULAR HGB CONC 29.9 g/dl (32.0-36.5); MEAN CORPUSCULAR VOLUME 92.4 fl (80.0-96.0); MONO # 0.8 10^3/uL (0.0-0.8); MONO % 12.1 % (0.0-5.0); NEUTROPHILS # 4.8 10^3/uL (1.5-8.5); NEUTROPHILS % 77.9 % (36.0-66.0); PLATELET COUNT, AUTOMATED 322 10^3/uL (150-450); RED BLOOD COUNT 3.04 10^6/uL (4.00-5.40); WHITE BLOOD COUNT 6.2 10^3/uL (4.0-10.0)
[2019-07-24 04:48] LABS: BLOOD UREA NITROGEN 24 MG/DL (7-18); CALCIUM LEVEL 8.5 MG/DL (8.8-10.2); CARBON DIOXIDE LEVEL 43 MEQ/L (21-32); CHLORIDE LEVEL 94 MEQ/L (98-107); CREATININE FOR GFR 0.66 MG/DL (0.55-1.30); GLOMERULAR FILTRATION RATE > 60.0 (>39); GLUCOSE, FASTING 83 MG/DL (70-100); MAGNESIUM LEVEL 1.4 MG/DL (1.8-2.4); POTASSIUM SERUM 4.5 MEQ/L (3.5-5.1); SODIUM LEVEL 140 MEQ/L (136-145)
[2019-07-24] MEDS: SLF 3 ML SYR IV SCH ×2 (06:12→09:32)
[2019-07-24] MEDS: SYMBICORT 80/4.5MCG INHALER 6GM INH SCH (07:20)
[2019-07-24 08:00] VITALS: BP 113/53
[2019-07-24 09:30] VITALS: BP 113/60
[2019-07-24] MEDS: bisoproloL fumarate 5 MG TAB PO SCH (09:30)
[2019-07-24] MEDS: IRON POLYSAC (NIFEREX) 150 MG CAP PO SCH (09:30)
[2019-07-24] MEDS: AMIODARONE 200 MG TAB (PACERONE) PO SCH (09:31)
[2019-07-24] MEDS: PANTOPRAZOLE 40MG VIAL (C9113 PER 1) IV SCH (09:31)
[2019-07-24] MEDS: TORSEMIDE 20 MG TAB PO SCH (09:31)
[2019-07-24] MEDS: APIXABAN 2.5 MG TAB (ELIQUIS) PO SCH (09:31)
[2019-07-24] MEDS: DIGOXIN 0.125 MG TAB PO SCH (09:31)
[2019-07-24] MEDS: MAGNESIUM GLUCONATE 500 MG TAB PO SCH (09:31)
[2019-07-24] MEDS: POTASSIUM CHL PWD 20 MEQ PACKET PO SCH (09:32)
[2019-07-24] MEDS ORDERED: BISO5TAB14 PO (11:13)
[2019-07-24] MEDS ORDERED: TORS20TA2 PO (11:13)
[2019-07-24] MEDS ORDERED: IRON1TAB2 PO (11:13)
[2019-07-24] MEDS ORDERED: DIGO0.123 PO (11:13)
[2019-07-24] MEDS ORDERED: AMIO200T PO (11:13)
--- NOTE | 2019-07-24 20:08 | DS.PDOC ---
Discharge Summary General Date of Admission July 15, 2019 at 15:43 Date of Discharge 07/24/19 Discharge Summary PROCEDURES PERFORMED DURING STAY: [None]. ADMITTING DIAGNOSES: Acute on chronic respiratory failure Acute on chronic decompensated cor pulmonale. Electrolyte imbalance Metabolic alkalosis Recurrent R sided pleural effusion Hyponatremia Atrial fibrillation Oropharyngeal dysfunction Cachexia Deconditioning Seizure DISCHARGE DIAGNOSES: Acute on chronic respiratory failure Acute on chronic decompensated cor pulmonale. Electrolyte imbalance Metabolic alkalosis Recurrent R sided pleural effusion Hyponatremia Atrial fibrillation Oropharyngeal dysfunction Cachexia Deconditioning Seizure COMPLICATIONS/CHIEF COMPLAINT: Pleural Effusion. HISTORY OF PRESENT ILLNESS: Liv Caicedo is a 74-year-old female with a normal renal function at baseline, history of atrial fibrillation anticoagulated with Eliquis, congestive heart failure, chronic hypoxic respiratory failure requiring oxygen, restrictive lung disease secondary to sarcoidosis, multiple other comorbidities as mentioned below. She initially presented to the [facility] with progressive shortness of breath. She was found to have right- sided pleural effusion. She was transferred to [facility] yesterday for higher level of care. She was acidotic with a pH of 7.2 and a pCO2 of 140. Patient was placed on bilevel positive airway pressure (BiPAP) and transferred to [facility]. At [facility], patient was in the intensive care unit (ICU). She was continued on BiPAP. Later on, she was seen by cardiothoracic (CT) surgery. She got insertion of the right-sided chest tube by Dr. Mathis. With improvement of the lung aeration after placement of chest tube and a combination of the use of BiPAP, patient's acidosis suddenly recovered from a pH of 7.29 to a pH of 7.62 with a pCO2 of 47 and a serum bicarbonate of 50. Patient was alkalotic. She became apneic at that time, and she also had seizure episode. Patient needed to be intubated. Also, patient developed acute on chronic decompe nsated cor pulmonale and rapid ventricular rate with paroxysmal atrial fibrillation. On 07/20/19 patient was successfully extubated. HOSPITAL COURSE: During hospital stay the following issue addressed Acute on chronic respiratory failure Secondary to pleural effusion Patient was extubated 07/20/19 Acute on chronic decompensated cor pulmonale. 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 ALLERGIES: Please see below. PHYSICAL EXAMINATION ON DISCHARGE:VITAL SIGNS: Please see below. VITAL SIGNS: Please see below. GENERAL: awake, alert, NAD, cachectic HEENT: NCAT, anicteric sclera, KARLENE NECK: supple, no JVD CARDIOVASCULAR EXAMINATION: S1S2, harsh systolic murmur regular rate/rhythm, pacemaker in place RESPIRATORY EXAMINATION: Diminished lung sounds bilaterally ABDOMINAL EXAMINATION: positive bowel sounds x 4, NT EXTREMITIES: no cyanosis, clubbing, edema SKIN: warm, no rashes. NEUROLOGICAL EXAMINATION: AAO x 3, no motor/sensory deficits LABORATORY DATA: Please see below. IMAGING: [facility] NAME: LIV CAICEDO DATE OF : 1945 AGE: 74 SEX: F REPORT #: [id number] ROOM: ICU TECHNOLOGIST: PATRICK DOCTOR: Dash Mathis M.D. Ordered for Date&Time: 07/20/19 1329 cc: [~ rep ct ivnm] Service Date&Time: This report is in Signed status. If this report is in a DRAFT status it has not yet been reviewed by the radiologist for accuracy. Thank you for having your radiology procedures performed at [facility] RADIOLOGY REPORT Date&Time printed: [~ rep prt dt last] [~ rep prt tm last] Page [address] of [address] [address] RADIOLOGY REPORT This report is in Signed status. If this report is in a DRAFT status it has not yet been reviewed by the radiologist for accuracy. Thank you for having your radiology procedures performed at [facility] RADIOLOGY REPORT Date&Time printed: [~ rep prt dt last] [~ rep prt tm last] Page [address] CHEST WITHOUT IV CONTRAST: CT chest performed without IV contrast. Sagittal and coronal reconstruction images are performed. Comparison is made with a prior study 07/15/2019 and 04/05/2019. There is a right chest tube in place. There is a very small right apical pneumothorax. A tiny amount of right pleural fluid/thickening is seen posteriorly and inferiorly. There is a small left pleural effusion. Diffuse interstitial densities are seen throughout both lungs likely on the basis of interstitial fibrosis. There are confluent parenchymal opacities surrounding the bronchioles in the right upper and lower lobes and right middle lobe. These findings are seen to a similar extent in the lingula and to a lesser extent in the remaining left upper lobe and left lower lobe. These may represent areas of fibroatelectasis or peribronchiolar infiltrates. Large calcified granuloma is seen in the anterior right lower lobe. There are diffuse calcifications of the sifuentes of the bronchioles bilaterally. Thoracic aorta demonstrates mild atherosclerotic calcification with no aneurysm. The pulmonary trunk is dilated. There is mild cardiomegaly. No pericardial effusion is seen. No axillary or mediastinal adenopathy is seen. There are calcified left infrahilar lymph nodes present. There are degenerative changes of the spine. IMPRESSION: Right chest tube in place with a small right apical pneumothorax. There is a small left pleural effusion. There are peribronchiolar confluent parenchymal opacities bilaterally representing either areas of fibroatelectasis and/or peribronchiolar infiltrates. There are also diffuse interstitial densities bilaterally likely on the basis of fibrosis. Electronically Signed by Drew Corral MD 07/20/2019 04:14 P DD: Drew Corral MD, MD 07/20/19 1448 DT: SADIQ 07/20/19 1528 DS: GENNY 07/20/19 1614 07/20/19 1614 [~ rep ct labl] PROGNOSIS: Fair ACTIVITY: [As tolerated]. DIET: Cardiac DISPOSITION: 06 Home Health Service. ITEMS TO FOLLOWUP ON ON OUTPATIENT: Follow-up with PCP, morning show newscast producer, neurologist, narcotics investigator DISCHARGE CONDITION: [Stable]. TIME SPENT ON DISCHARGE: Greater than 30minutes. Vital Signs/I&Os Vital Signs Date Time Temp Pulse Resp B/P (MAP) Pulse Ox O2 Delivery O2 Flow Rate FiO2 07/24/19 12:00 0.5 07/24/19 09:31 80 07/24/19 09:30 113/60 07/24/19 08:00 98.1 16 96 Nasal Cannula 07/20/19 12:00 30 I&O- Last 24 Hours up to 6 AM 07/24/19 06:00 Intake Total 1542 ml Output Total 900 ml Balance 642 ml Laboratory Data Labs 24H Laboratory Tests 2 07/24/19 03:47: Immature Granulocyte % (Auto) 1.0, Neutrophils (%) (Auto) 77.9H, Lymphocytes (%) (Auto) 7.7L, Monocytes (%) (Auto) 12.1H, Eosinophils (%) (Auto) 1.3, Basophils (%) (Auto) 0.0, Neutrophils # (Auto) 4.8, Lymphocytes # (Auto) 0.5L, Monocytes # (Auto) 0.8, Eosinophils # (Auto) 0.1, Basophils # (Auto) 0.0, Nucleated Red Blood Cells % (auto) 0.3H, Anion Gap 3L, Glomerular Filtration Rate > 60.0, Calcium Level 8.5L, Magnesium Level 1.4L CBC/BMP Laboratory Tests 07/24/19 03:47 Microbiology Microbiology 07/15/19 Acid Fast Stain, Received Pending 07/15/19 Mycobacterial Culture, Received Pending 07/15/19 Fungal Smear, Received Pending 07/15/19 Fungal Culture, Received Pending 07/15/19 Gram Stain - Final, Complete 07/15/19 Anaerobic Culture - Final, Complete 07/15/19 Body Fluid Culture - Final, Complete Bacillus Sp., Not Anthracis 07/15/19 Blood Culture - Final, Complete NO GROWTH AFTER 5 DAYS 07/15/19 Blood Culture - Final, Complete NO GROWTH AFTER 5 DAYS Discharge Medications Scheduled Amiodarone HCl (Amiodarone HCl) 200 Mg Tablet, 200 MG PO DAILY Apixaban (Eliquis) 5 Mg Tablet, 2.5 MG PO BID, (Reported) Aspirin (Aspirin EC) 81 Mg Tab, 81 MG PO DAILY, (Reported) Bimatoprost (Lumigan) 50 Drop/2.5 Ml Tabitha, 1 DROP OU QHS, (Reported) Bisoprolol Fumarate (Bisoprolol Fumarate) 5 Mg Tablet, 5 MG PO DAILY Brimonidine Tartrate/Timolol (Combigan 0.2%-0.5% Eye Drops) 5 Ml Drops, 1 DROP OU BID, (Reported) Budesonide/Formoterol (Symbicort 80-4.5 Mcg Inhaler) 60 Puff/Inhaler Aers, 2 PUFF INH BID, (Reported) Digoxin (Digoxin) 125 Mcg Tablet, 0.125 MG PO DAILY Diltiazem HCl (Cartia Xt) 240 Mg Cap, 240 MG PO DAILY, (Reported) PT TAKES IN PUDDING Esomeprazole Magnesium (Nexium) 40 Mg Cap, 40 MG PO DAILY, (Reported) Ezetimibe (Ezetimibe) 10 Mg Tablet, 10 MG PO DAILY, (Reported) Ferrous Sulfate (Iron) 325 Mg Tablet, 1 TAB PO BID Furosemide (Furosemide) 40 Mg Tab, 40 MG PO DAILY, (Reported) Ketotifen Fumarate (Eye Itch Relief) 5 Ml Drops, 0.025 % OU PRN, (Reported) Potassium Chloride (K-Tab ER) 10 Meq Tablet.er, 10 MEQ PO DAILY, (Reported) PT TAKES IN PUDDING Propafenone HCl (Propafenone HCl ER) 325 Mg Cap, 325 MG PO BID, (Reported) PT TAKES IN PUDDING Torsemide (Torsemide) 20 Mg Tablet, 20 MG PO DAILY Scheduled PRN Albuterol Sulfate (Ventolin Hfa) 18 Gm Hfa.aer.ad, 2 PUFFS INH DAILY PRN for DYSPNEA, (Reported) Allergies Coded Allergies: Peanut (Unverified Allergy, Intermediate, hives, 07/14/19) acetaminophen (Verified Allergy, Intermediate, rash, 07/14/19) JASON VELAZQUEZ DO July 24, 2019 20:08
--- NOTE | 2019-07-25 04:58 | IPN ---
DATE: 07/24/2019 Mrs. Caicedo is seen this morning on her bedside. She is sitting at the edge of bed and reports that she is going to go home today. She denies any nausea, vomiting, dyspnea, or chest pain. On physical exam, temperature 98 degrees Fahrenheit, heart rate 80 per minute, and respiratory rate 16 per minute. Blood pressure 113/60 mmHg and oxygen saturation 96% on 1/2 liter oxygen. Intake and output records from yesterday show a positive fluid balance of about 542 mL. Her weight is absolutely inaccurate. Head is atraumatic. Neck is supple and without jugular venous distention (JVD) or thyroid enlargement. Heart sounds are regular, and lungs with slightly diminished breath sounds at left base. Abdomen soft and nontender. Bowel sounds normal. Extremities without any cyanosis or clubbing. Neurologically, she is awake, alert, and oriented times three. Today's labs show WBC count 6.2, hemoglobin 8.4, and hematocrit 28.1. Sodium 140, potassium 4.5, CO2 of 43, BUN 24, and creatinine 0.66. Magnesium level is 1.4. PROBLEMS: 1. Bilateral pleural effusions. Her right-sided pleural effusion improved with chest tube. She still has some left-sided pleural effusion. She has been on torsemide 20 mg daily, which will be continued. 2. Hypomagnesemia. Her magnesium level should be corrected prior to discharge. I would recommend that she get a dose of intravenous magnesium sulfate prior to discharge and then followup as an outpatient. 3. Anemia. She has received intravenous iron and remains on oral iron supplement. Her anemia is essentially unchanged. She will also need followup as an outpatient. 4. Disposition. From renal standpoint, patient can be discharged and followup in the office in next couple of weeks.
== END 2019-07-24 15:31 | disposition home health service (06) | DRG 981 ==
LOC: M ICU 15:43 → M PCU 07-21 12:31
PROVIDERS: ADMIT Internal Medicine; ATTEND Internal Medicine
PROC: 0W9900Z Drainage of Right Pleural Cavity with Drainage Device, Open Approach (ICD-10-PCS; 2019-07-15)
PROC: 02HV33Z Insertion of Infusion Device into Superior Vena Cava, Percutaneous Approach (ICD-10-PCS; 2019-07-15)
PROC: 03HY32Z Insertion of Monitoring Device into Upper Artery, Percutaneous Approach (ICD-10-PCS; 2019-07-15)
PROC: 0BH17EZ Insertion of Endotracheal Airway into Trachea, Via Natural or Artificial Opening (ICD-10-PCS; 2019-07-15)
PROC: 5A1945Z Respiratory Ventilation, 24-96 Consecutive Hours (ICD-10-PCS; 2019-07-15)
PROC: 0JPT0MZ Removal of Stimulator Generator from Trunk Subcutaneous Tissue and Fascia, Open Approach (ICD-10-PCS; 2019-07-17)
PROC: 0JH60MZ Insertion of Stimulator Generator into Chest Subcutaneous Tissue and Fascia, Open Approach (ICD-10-PCS; principal; 2019-07-17 12:00)
DX: J96.22 Acute and chronic respiratory failure with hypercapnia (principal); G93.41 Metabolic encephalopathy; R40.20 Unspecified coma; E87.4 Mixed disorder of acid-base balance; J90 Pleural effusion, not elsewhere classified; E87.1 Hypo-osmolality and hyponatremia; R64 Cachexia; Z68.1 Body mass index [BMI] 19.9 or less, adult; J96.21 Acute and chronic respiratory failure with hypoxia; I48.0 Paroxysmal atrial fibrillation; I11.0 Hypertensive heart disease with heart failure; I50.9 Heart failure, unspecified; Z99.81 Dependence on supplemental oxygen; I49.5 Sick sinus syndrome; I95.9 Hypotension, unspecified; I27.29 Other secondary pulmonary hypertension; I50.813 Acute on chronic right heart failure; R13.12 Dysphagia, oropharyngeal phase; E83.42 Hypomagnesemia; G40.409 Other generalized epilepsy and epileptic syndromes, not intractable, without status epilepticus; J45.40 Moderate persistent asthma, uncomplicated; K21.9 Gastro-esophageal reflux disease without esophagitis; D86.0 Sarcoidosis of lung; Z79.01 Long term (current) use of anticoagulants; Z79.82 Long term (current) use of aspirin; Z79.899 Other long term (current) drug therapy; Z91.010 Allergy to peanuts; Z88.6 Allergy status to analgesic agent; Z95.0 Presence of cardiac pacemaker; Z11.59 Encounter for screening for other viral diseases; Z98.41 Cataract extraction status, right eye; Z98.42 Cataract extraction status, left eye; Z87.81 Personal history of (healed) traumatic fracture; Z90.49 Acquired absence of other specified parts of digestive tract

== ENCOUNTER 2021-03-24 15:22 | Inpatient (IN) | payer MEDICARE, OTHER ==
[~2021-03-24] VITALS: Ht 162.6 cm; Wt 50.4 kg
[~2021-03-24 15:22] MED LIST changes: +AMIO200T49 PO; -ASPIRIN 81 MG ENTERIC TAB PO SCH; +BISO5TAB14 PO; +DIGO0.123 PO; +ELIQ5TAB PO; +EYE0.0255 OU; +IRON1TAB2 PO; +K-TA10TA PO; -PANTOPRAZOLE 40MG TAB (PROTONIX) PO SCH; -SM E1DRO2 OU; +TORS20TA2 PO
[2021-03-24] MEDS ORDERED: MOM 30ML SUSPENSION UDC PO PRN (16:45)
[2021-03-24] MEDS ORDERED: MAALOX 30 ML SUSP *UDC PO PRN (16:45)
[2021-03-24 17:54] LABS: BASO % 0.1 % (0.0-1.0); EOS % 0.2 % (0.0-3.0); HEMATOCRIT 36.3 % (36.0-47.0); HEMOGLOBIN 10.9 g/dl (12.0-15.5); LYMPH # 0.6 10^3/uL (1.5-5.0); LYMPH % 6.2 % (24.0-44.0); MEAN CORPUSCULAR HEMOGLOBIN 27.5 pg (27.0-33.0); MEAN CORPUSCULAR VOLUME 91.4 fl (80.0-96.0); MONO % 10.4 % (2.0-8.0); NEUTROPHILS # 8.3 10^3/uL (1.5-8.5); NEUTROPHILS % 82.6 % (36.0-66.0); PLATELET COUNT, AUTOMATED 241 10^3/uL (150-450); RED BLOOD COUNT 3.97 10^6/uL (4.00-5.40)
[2021-03-24 18:00] VITALS: BP 140/68
[2021-03-24 18:21] LABS: ALBUMIN 2.4 GM/DL (3.2-5.2); BILIRUBIN,TOTAL 0.6 MG/DL (0.2-1.0); CALCIUM LEVEL 8.6 MG/DL (8.8-10.2); CREATININE FOR GFR 0.97 MG/DL (0.55-1.30); GLOMERULAR FILTRATION RATE 59.1 (>39); POTASSIUM SERUM 3.7 MEQ/L (3.5-5.1); TOTAL PROTEIN 6.5 GM/DL (6.4-8.2)
[2021-03-24] MEDS ORDERED: ELIQ2.5T PO (19:54)
[2021-03-24] MEDS ORDERED: FAMO20TA5 PO (19:55)
[2021-03-24] MEDS ORDERED: AMIO200T49 PO (19:55)
[2021-03-24] MEDS ORDERED: TORS10TA3 PO (19:55)
[2021-03-24] MEDS ORDERED: AMOX875T2 PO (19:55)
[2021-03-24] MEDS ORDERED: HOME MED LIST COMPLETE! XX SCH (19:55)
[2021-03-24] MEDS ORDERED: VENTAER INH (19:55)
[2021-03-24 20:00] VITALS: BP 143/65
[2021-03-24] MEDS ORDERED: VANCOMYCIN HCL 1,000 MG, VIAL MATE ADAPTER 1 EACH in NS 250 ML IV ONE (20:00)
[2021-03-24] MEDS: DOCUSATE SODIUM 100MG CAPSULE PO SCH (21:13)
[2021-03-24] MEDS: PIPERACILLIN/TAZOBACTAM SOD 3.375 GM in D5W MINI-BAG PLUS 50 ML IV SCH (21:13)
[2021-03-25] MEDS: PIPERACILLIN/TAZOBACTAM SOD 3.375 GM in D5W MINI-BAG PLUS 50 ML IV SCH ×2 (02:05→08:40)
[2021-03-25] MEDS ORDERED: ALBUTEROL 90 MCG/ACT 8GM HFA INHALER INH PRN (03:50)
[2021-03-25 04:00] VITALS: BP 119/55
[2021-03-25 04:43] LABS: BASO % 0.1 % (0.0-1.0); EOS % 0.2 % (0.0-3.0); HEMATOCRIT 36.1 % (36.0-47.0); LYMPH # 0.6 10^3/uL (1.5-5.0); LYMPH % 6.2 % (24.0-44.0); MEAN CORPUSCULAR HEMOGLOBIN 27.7 pg (27.0-33.0); MEAN CORPUSCULAR HGB CONC 30.5 g/dl (32.0-36.5); MEAN CORPUSCULAR VOLUME 90.9 fl (80.0-96.0); MONO # 1.2 10^3/uL (0.0-0.8); MONO % 11.6 % (2.0-8.0); NEUTROPHILS # 8.2 10^3/uL (1.5-8.5); NEUTROPHILS % 81.4 % (36.0-66.0); PLATELET COUNT, AUTOMATED 233 10^3/uL (150-450); RED BLOOD COUNT 3.97 10^6/uL (4.00-5.40); WHITE BLOOD COUNT 10.1 10^3/uL (4.0-10.0)
[2021-03-25 05:10] LABS: CALCIUM LEVEL 8.6 MG/DL (8.8-10.2); CREATININE FOR GFR 1.13 MG/DL (0.55-1.30); GLOMERULAR FILTRATION RATE 49.6 (>39); POTASSIUM SERUM 3.5 MEQ/L (3.5-5.1)
[2021-03-25] MEDS ORDERED: VANCOMYCIN HCL 750 MG, VIAL MATE ADAPTER 1 EACH in NS 250 ML IV SCH (06:00)
[2021-03-25] MEDS ORDERED: NS 1,000 ML IV SCH (07:20)
[2021-03-25] MEDS: DOCUSATE SODIUM 100MG CAPSULE PO SCH ×2 (07:50→20:23)
[2021-03-25 08:00] VITALS: BP 139/65
[2021-03-25] MEDS: SYMBICORT 80/4.5MCG INHALER 6GM INH SCH ×2 (08:07→20:00)
[2021-03-25] MEDS: APIXABAN 2.5 MG TAB (ELIQUIS) PO SCH ×2 (08:40→20:23)
[2021-03-25] MEDS: FAMOTIDINE 20 MG TAB PO SCH ×2 (08:40→20:22)
[2021-03-25] MEDS ORDERED: TORSEMIDE 10 MG TABLET PO SCH (09:00)
[2021-03-25 09:15] LABS: ALBUMIN 2.2 GM/DL (3.2-5.2); BILIRUBIN,TOTAL 0.7 MG/DL (0.2-1.0); CHOLESTEROL RISK RATIO 3.465 (<5)
[2021-03-25 12:02] VITALS: BP 119/58
[2021-03-25] MEDS: ceFAZolin SOD 2 GM in IV 1 EA IV SCH ×2 (12:51→20:23)
[2021-03-25] MEDS: EZETIMIBE 10MG TABLET (ZETIA) PO SCH (12:51)
[2021-03-25] MEDS: AMIODARONE 200 MG TAB (PACERONE) PO SCH (12:51)
[2021-03-25 16:15] VITALS: BP 134/62
[2021-03-25] MEDS: FIBER-CON 625 MG TAB PO PRN (17:16)
[2021-03-25 22:00] VITALS: BP_SYST 116; BP_SYST 132; BP_DIAS 54; BP_DIAS 62
[2021-03-26] MEDS: ceFAZolin SOD 2 GM in IV 1 EA IV SCH ×3 (04:51→20:57)
[2021-03-26 06:00] VITALS: BP 126/62
[2021-03-26 07:05] LABS: BASO % 0.1 % (0.0-1.0); EOS % 0.3 % (0.0-3.0); HEMATOCRIT 29.9 % (36.0-47.0); HEMOGLOBIN 9.2 g/dl (12.0-15.5); LYMPH # 0.6 10^3/uL (1.5-5.0); MEAN CORPUSCULAR HEMOGLOBIN 27.8 pg (27.0-33.0); MEAN CORPUSCULAR HGB CONC 30.8 g/dl (32.0-36.5); MEAN CORPUSCULAR VOLUME 90.3 fl (80.0-96.0); MONO # 0.8 10^3/uL (0.0-0.8); MONO % 9.5 % (2.0-8.0); NEUTROPHILS # 7.3 10^3/uL (1.5-8.5); NEUTROPHILS % 82.6 % (36.0-66.0); PLATELET COUNT, AUTOMATED 199 10^3/uL (150-450); RED BLOOD COUNT 3.31 10^6/uL (4.00-5.40); WHITE BLOOD COUNT 8.9 10^3/uL (4.0-10.0)
[2021-03-26 08:04] LABS: CALCIUM LEVEL 7.8 MG/DL (8.8-10.2); CREATININE FOR GFR 1.12 MG/DL (0.55-1.30); GLOMERULAR FILTRATION RATE 50.1 (>39); POTASSIUM SERUM 2.7 MEQ/L (3.5-5.1)
[2021-03-26] MEDS: SYMBICORT 80/4.5MCG INHALER 6GM INH SCH ×2 (08:16→20:00)
[2021-03-26] MEDS ORDERED: KCL 10MEQ/100ML SWI (KRUN) 10 MEQ in IV 1 EA IV ONE (08:30)
[2021-03-26] MEDS ORDERED: POTASSIUM CHLORIDE 10MEQ SR TABLET PO ONE ×2 (08:55→11:00)
[2021-03-26] MEDS: DOCUSATE SODIUM 100MG CAPSULE PO SCH ×2 (09:00→20:57)
[2021-03-26] MEDS: EZETIMIBE 10MG TABLET (ZETIA) PO SCH (09:27)
[2021-03-26] MEDS: FAMOTIDINE 20 MG TAB PO SCH ×2 (09:27→20:55)
[2021-03-26] MEDS: AMIODARONE 200 MG TAB (PACERONE) PO SCH (09:28)
[2021-03-26] MEDS: APIXABAN 2.5 MG TAB (ELIQUIS) PO SCH ×2 (09:29→20:57)
[2021-03-26] MEDS: FIBER-CON 625 MG TAB PO PRN ×2 (09:29→20:55)
[2021-03-26] MEDS: POTASSIUM CHLORIDE 10MEQ SR TABLET PO SCH ×2 (09:29→20:56)
[2021-03-26] MEDS: FUROSEMIDE 40MG/4ML VIAL (J1940) IV SCH ×2 (09:44→17:16)
[2021-03-26] MEDS: LACTOBACILLUS ACIDOPHILUS CAP (BACID) PO SCH ×3 (12:08→20:56)
[2021-03-26 13:47] LABS: HEMATOCRIT 32.9 % (36.0-47.0); MEAN CORPUSCULAR HEMOGLOBIN 27.5 pg (27.0-33.0); MEAN CORPUSCULAR HGB CONC 30.4 g/dl (32.0-36.5); MEAN CORPUSCULAR VOLUME 90.4 fl (80.0-96.0); PLATELET COUNT, AUTOMATED 206 10^3/uL (150-450); RED BLOOD COUNT 3.64 10^6/uL (4.00-5.40); WHITE BLOOD COUNT 11.9 10^3/uL (4.0-10.0)
[2021-03-26] MEDS ORDERED: IBUPROFEN 400MG TAB PO PRN (13:50)
[2021-03-26 14:00] VITALS: BP 119/57
[2021-03-26 16:55] LABS: CALCIUM LEVEL 8.3 MG/DL (8.8-10.2); CREATININE FOR GFR 1.16 MG/DL (0.55-1.30); GLOMERULAR FILTRATION RATE 48.1 (>39); POTASSIUM SERUM 4.9 MEQ/L (3.5-5.1)
[2021-03-26] MEDS ORDERED: LIDOCAINE 1% MDV 20ML VIAL SC ONE (19:50)
[2021-03-26 22:00] VITALS: BP 129/54
[2021-03-27] MEDS: FUROSEMIDE 40MG/4ML VIAL (J1940) IV SCH ×3 (01:01→17:00)
[2021-03-27] MEDS: ceFAZolin SOD 2 GM in IV 1 EA IV SCH ×2 (04:57→12:50)
[2021-03-27 06:13] VITALS: BP 103/43
[2021-03-27 06:39] LABS: BASO % 0.2 % (0.0-1.0); EOS % 0.3 % (0.0-3.0); HEMATOCRIT 35.1 % (36.0-47.0); HEMOGLOBIN 10.6 g/dl (12.0-15.5); LYMPH # 0.9 10^3/uL (1.5-5.0); LYMPH % 8.8 % (24.0-44.0); MEAN CORPUSCULAR HEMOGLOBIN 27.3 pg (27.0-33.0); MEAN CORPUSCULAR HGB CONC 30.2 g/dl (32.0-36.5); MEAN CORPUSCULAR VOLUME 90.5 fl (80.0-96.0); MONO % 9.5 % (2.0-8.0); NEUTROPHILS # 8.5 10^3/uL (1.5-8.5); NEUTROPHILS % 80.5 % (36.0-66.0); PLATELET COUNT, AUTOMATED 225 10^3/uL (150-450); RED BLOOD COUNT 3.88 10^6/uL (4.00-5.40); WHITE BLOOD COUNT 10.5 10^3/uL (4.0-10.0)
[2021-03-27 07:09] LABS: CALCIUM LEVEL 8.4 MG/DL (8.8-10.2); CREATININE FOR GFR 1.54 MG/DL (0.55-1.30); GLOMERULAR FILTRATION RATE 34.7 (>39); POTASSIUM SERUM 4.4 MEQ/L (3.5-5.1)
[2021-03-27] MEDS: APIXABAN 2.5 MG TAB (ELIQUIS) PO SCH (07:48)
[2021-03-27] MEDS: SYMBICORT 80/4.5MCG INHALER 6GM INH SCH ×2 (08:57→22:18)
[2021-03-27] MEDS: DOCUSATE SODIUM 100MG CAPSULE PO SCH ×2 (09:00→20:33)
[2021-03-27] MEDS: FIBER-CON 625 MG TAB PO PRN (09:31)
[2021-03-27] MEDS: FAMOTIDINE 20 MG TAB PO SCH (09:34)
[2021-03-27] MEDS: AMIODARONE 200 MG TAB (PACERONE) PO SCH (09:35)
[2021-03-27] MEDS: EZETIMIBE 10MG TABLET (ZETIA) PO SCH (09:35)
[2021-03-27] MEDS: LACTOBACILLUS ACIDOPHILUS CAP (BACID) PO SCH ×4 (09:36→20:42)
[2021-03-27] MEDS: POTASSIUM CHLORIDE 10MEQ SR TABLET PO SCH ×2 (09:36→20:43)
[2021-03-27] MEDS: predniSONE 20 MG TAB PO SCH ×2 (12:50→20:42)
[2021-03-27 14:00] VITALS: BP 107/62
[2021-03-27] MEDS ORDERED: LIDOCAINE PRES-FREE 2% 10ML AMP As Ordered ONE (18:06)
[2021-03-27] MEDS ORDERED: BUPIVACAINE HCL 0.5% 10ML VIAL As Ordered ONE (18:06)
[2021-03-27] MEDS ORDERED: propofoL 200 MG/20 ML VIAL As Ordered ONE (18:35)
[2021-03-27] MEDS ORDERED: MIDAZOLAM INJ 2MG/2ML VIAL (J2250 PER 1MG) As Ordered ONE (18:35)
[2021-03-27] MEDS ORDERED: LIDOCAINE 2% 100MG/5ML SDV (FOR ANES.) As Ordered ONE (18:35)
[2021-03-27] MEDS ORDERED: fentaNYL 100 MCG/2 ML INJECTION (J3010) As Ordered ONE (18:35)
[2021-03-27] MEDS ORDERED: fentaNYL 100 MCG/2 ML INJECTION (J3010) IV PRN (19:35)
[2021-03-27] MEDS ORDERED: ONDANSETRON 4MG/2ML VIAL IV PRN (19:35)
[2021-03-27] MEDS ORDERED: LR 1,000 ML IV SCH (19:35)
[2021-03-27 20:30] VITALS: BP 135/70
[2021-03-27 21:24] VITALS: BP 105/48
[2021-03-28] MEDS: ceFAZolin SOD 2 GM in IV 1 EA IV SCH ×2 (00:37→14:01)
[2021-03-28] MEDS: FUROSEMIDE 40MG/4ML VIAL (J1940) IV SCH (00:37)
[2021-03-28] MEDS: FIBER-CON 625 MG TAB PO PRN (00:38)
[2021-03-28 01:44] VITALS: BP 129/72
[2021-03-28 05:37] VITALS: BP 109/55
[2021-03-28 07:01] LABS: BASO % 0.1 % (0.0-1.0); HEMOGLOBIN 10.4 g/dl (12.0-15.5); LYMPH # 0.3 10^3/uL (1.5-5.0); LYMPH % 2.7 % (24.0-44.0); MEAN CORPUSCULAR HEMOGLOBIN 27.6 pg (27.0-33.0); MEAN CORPUSCULAR HGB CONC 30.6 g/dl (32.0-36.5); MEAN CORPUSCULAR VOLUME 90.2 fl (80.0-96.0); MONO # 0.5 10^3/uL (0.0-0.8); MONO % 4.4 % (2.0-8.0); NEUTROPHILS # 11.1 10^3/uL (1.5-8.5); NEUTROPHILS % 92.1 % (36.0-66.0); PLATELET COUNT, AUTOMATED 235 10^3/uL (150-450); RED BLOOD COUNT 3.77 10^6/uL (4.00-5.40)
[2021-03-28 07:24] LABS: CALCIUM LEVEL 8.8 MG/DL (8.8-10.2); CREATININE FOR GFR 1.72 MG/DL (0.55-1.30); GLOMERULAR FILTRATION RATE 30.5 (>39); POTASSIUM SERUM 4.1 MEQ/L (3.5-5.1)
[2021-03-28] MEDS: SYMBICORT 80/4.5MCG INHALER 6GM INH SCH ×2 (07:46→20:49)
[2021-03-28] MEDS: LACTOBACILLUS ACIDOPHILUS CAP (BACID) PO SCH ×4 (08:00→20:26)
[2021-03-28] MEDS: POTASSIUM CHLORIDE 10MEQ SR TABLET PO SCH ×2 (09:00→20:26)
[2021-03-28] MEDS: DOCUSATE SODIUM 100MG CAPSULE PO SCH ×2 (09:00→20:31)
[2021-03-28] MEDS: predniSONE 20 MG TAB PO SCH ×2 (10:30→20:25)
[2021-03-28] MEDS: AMIODARONE 200 MG TAB (PACERONE) PO SCH (10:31)
[2021-03-28] MEDS: OMEPRAZOLE 20 MG CAP PO SCH (10:31)
[2021-03-28] MEDS: EZETIMIBE 10MG TABLET (ZETIA) PO SCH (10:32)
[2021-03-28 14:00] VITALS: BP 115/59
[2021-03-28] MEDS: APIXABAN 2.5 MG TAB (ELIQUIS) PO SCH (20:25)
[2021-03-28 22:00] VITALS: BP 133/66
[2021-03-29] MEDS: ceFAZolin SOD 2 GM in IV 1 EA IV SCH (00:52)
[2021-03-29 06:26] VITALS: BP 126/54
[2021-03-29 07:18] LABS: BASO % 0.1 % (0.0-1.0); HEMATOCRIT 33.4 % (36.0-47.0); HEMOGLOBIN 10.2 g/dl (12.0-15.5); LYMPH # 0.3 10^3/uL (1.5-5.0); LYMPH % 2.6 % (24.0-44.0); MEAN CORPUSCULAR HEMOGLOBIN 27.3 pg (27.0-33.0); MEAN CORPUSCULAR HGB CONC 30.5 g/dl (32.0-36.5); MEAN CORPUSCULAR VOLUME 89.3 fl (80.0-96.0); MONO # 0.7 10^3/uL (0.0-0.8); MONO % 5.4 % (2.0-8.0); NEUTROPHILS # 11.9 10^3/uL (1.5-8.5); NEUTROPHILS % 91.3 % (36.0-66.0); PLATELET COUNT, AUTOMATED 221 10^3/uL (150-450); RED BLOOD COUNT 3.74 10^6/uL (4.00-5.40); WHITE BLOOD COUNT 13.1 10^3/uL (4.0-10.0)
[2021-03-29] MEDS: SYMBICORT 80/4.5MCG INHALER 6GM INH SCH ×2 (07:27→20:00)
[2021-03-29 07:47] LABS: CALCIUM LEVEL 8.7 MG/DL (8.8-10.2); CREATININE FOR GFR 1.79 MG/DL (0.55-1.30); GLOMERULAR FILTRATION RATE 29.2 (>39); POTASSIUM SERUM 4.6 MEQ/L (3.5-5.1)
[2021-03-29] MEDS: POTASSIUM CHLORIDE 10MEQ SR TABLET PO SCH (09:00)
[2021-03-29] MEDS: DOCUSATE SODIUM 100MG CAPSULE PO SCH (09:00)
[2021-03-29] MEDS: EZETIMIBE 10MG TABLET (ZETIA) PO SCH (09:15)
[2021-03-29] MEDS: OMEPRAZOLE 20 MG CAP PO SCH (09:15)
[2021-03-29] MEDS: LACTOBACILLUS ACIDOPHILUS CAP (BACID) PO SCH ×3 (09:15→17:06)
[2021-03-29] MEDS: predniSONE 20 MG TAB PO SCH (09:15)
[2021-03-29] MEDS: APIXABAN 2.5 MG TAB (ELIQUIS) PO SCH (09:15)
[2021-03-29] MEDS: AMIODARONE 200 MG TAB (PACERONE) PO SCH (09:16)
[2021-03-29] MEDS: CEPHALEXIN 250MG CAPSULE PO SCH ×3 (10:10→17:06)
[2021-03-29 12:51] LABS: CALCIUM LEVEL 9.1 MG/DL (8.8-10.2); CREATININE FOR GFR 2.04 MG/DL (0.55-1.30); GLOMERULAR FILTRATION RATE 25.1 (>39); POTASSIUM SERUM 4.1 MEQ/L (3.5-5.1)
[2021-03-29 14:00] VITALS: BP 133/69
[2021-03-29] MEDS ORDERED: NS 1,000 ML IV SCH (14:00)
[2021-03-29 18:41] LABS: CALCIUM LEVEL 8.3 MG/DL (8.8-10.2); CREATININE FOR GFR 1.74 MG/DL (0.55-1.30); GLOMERULAR FILTRATION RATE 30.1 (>39); POTASSIUM SERUM 4.5 MEQ/L (3.5-5.1)
[2021-03-29] MEDS ORDERED: RISATAB3 PO (19:07)
[2021-03-29] MEDS ORDERED: CEPH250T PO (19:07)
[2021-03-30] MEDS ORDERED: predniSONE 20 MG TAB PO SCH (09:00)
== END 2021-03-29 19:57 | disposition home or self-care (01) | DRG 602 ==
LOC: M PCU 16:20 → M MS5PR 03-25 15:46
PROVIDERS: ADMIT Internal Medicine Nephrology; ATTEND Internal Medicine
PROC: 0Y9M0ZX Drainage of Right Foot, Open Approach, Diagnostic (ICD-10-PCS; principal; 2021-03-26)
DX: L03.115 Cellulitis of right lower limb (principal); I50.33 Acute on chronic diastolic (congestive) heart failure; I48.0 Paroxysmal atrial fibrillation; J45.909 Unspecified asthma, uncomplicated; I11.0 Hypertensive heart disease with heart failure; K21.9 Gastro-esophageal reflux disease without esophagitis; Z95.0 Presence of cardiac pacemaker; Z90.49 Acquired absence of other specified parts of digestive tract; Z98.41 Cataract extraction status, right eye; Z98.42 Cataract extraction status, left eye; S92.354D Nondisplaced fracture of fifth metatarsal bone, right foot, subsequent encounter for fracture with routine healing; W07.XXXA Fall from chair, initial encounter; Y92.009 Unspecified place in unspecified non-institutional (private) residence as the place of occurrence of the external cause; D86.9 Sarcoidosis, unspecified; Z99.81 Dependence on supplemental oxygen; Z79.01 Long term (current) use of anticoagulants; Z79.82 Long term (current) use of aspirin; Z79.899 Other long term (current) drug therapy; Z88.6 Allergy status to analgesic agent; Z91.010 Allergy to peanuts; R94.31 Abnormal electrocardiogram [ECG] [EKG]

== ENCOUNTER → 2021-04-07 | Outpatient (CLI) | payer MEDICARE, OTHER ==
[~2021-04-07] MED LIST changes: +AMOX875T2 PO; +BIOF4GEL2 EXT; +CEPH250T PO; +FAMO20TA5 PO; +RISATAB3 PO; +SILV50CR EXT; +SPIR-10 PO; +TORS10TA3 PO; +TRAM50TA2 PO
[2021-04-07 18:52] LABS: BLOOD UREA NITROGEN 33 MG/DL (7-18); CALCIUM LEVEL 8.2 MG/DL (8.8-10.2); CARBON DIOXIDE LEVEL 33 MEQ/L (21-32); CHLORIDE LEVEL 103 MEQ/L (98-107); CREATININE FOR GFR 0.95 MG/DL (0.55-1.30); GLOMERULAR FILTRATION RATE > 60.0 (>39); GLUCOSE, FASTING 73 MG/DL (70-100); POTASSIUM SERUM 4.2 MEQ/L (3.5-5.1); SODIUM LEVEL 141 MEQ/L (136-145)
== END ==
LOC: M PLALAB 14:57
PROVIDERS: ATTEND Family Medicine
DX: I50.32 Chronic diastolic (congestive) heart failure (principal); N18.31 Chronic kidney disease, stage 3a

== ENCOUNTER → 2021-04-07 | Outpatient (REF) | payer MEDICARE, OTHER | LOC: M SFHCPLAZ 14:35 | PROVIDERS: ATTEND Family Medicine | DX: I50.32 Chronic diastolic (congestive) heart failure (principal); N18.31 Chronic kidney disease, stage 3a ==

== ENCOUNTER → 2021-04-14 | Outpatient (CLI) | payer MEDICARE, OTHER ==
[~2021-04-14] MED LIST changes: -BIOF4GEL2 EXT; -SILV50CR EXT; -SPIR-10 PO; -TRAM50TA2 PO
[2021-04-14 17:54] LABS: CALCIUM LEVEL 8.4 MG/DL (8.8-10.2); CREATININE FOR GFR 1.27 MG/DL (0.55-1.30); GLOMERULAR FILTRATION RATE 43.3 (>39); POTASSIUM SERUM 4.1 MEQ/L (3.5-5.1)
== END ==
LOC: M PLALAB 15:11
PROVIDERS: ATTEND Family Medicine
DX: I50.32 Chronic diastolic (congestive) heart failure (principal)

== ENCOUNTER 2021-04-24 17:46 | Inpatient (IN) | payer MEDICARE, OTHER ==
[~2021-04-24] VITALS: Ht 162.6 cm; Wt 46.4 kg
[2021-04-24] MEDS ORDERED: methocarbamoL 500 MG TAB PO ONE (18:55)
[2021-04-24 19:19] LABS: BASO % 0.1 % (0.0-1.0); EOS % 0.1 % (0.0-3.0); HEMATOCRIT 32.9 % (36.0-47.0); HEMOGLOBIN 10.1 g/dl (12.0-15.5); LYMPH # 0.4 10^3/uL (1.5-5.0); LYMPH % 3.3 % (24.0-44.0); MEAN CORPUSCULAR HGB CONC 30.7 g/dl (32.0-36.5); MEAN CORPUSCULAR VOLUME 84.8 fl (80.0-96.0); MONO # 0.9 10^3/uL (0.0-0.8); MONO % 6.9 % (2.0-8.0); NEUTROPHILS # 11.6 10^3/uL (1.5-8.5); NEUTROPHILS % 88.6 % (36.0-66.0); PLATELET COUNT, AUTOMATED 275 10^3/uL (150-450); RED BLOOD COUNT 3.88 10^6/uL (4.00-5.40); WHITE BLOOD COUNT 13.1 10^3/uL (4.0-10.0)
[2021-04-24 19:38] LABS: CALCIUM LEVEL 7.9 MG/DL (8.8-10.2); CREATININE FOR GFR 1.6 MG/DL (0.55-1.30); GLOMERULAR FILTRATION RATE 33.2 (>39); POTASSIUM SERUM 4.6 MEQ/L (3.5-5.1)
[2021-04-24] MEDS ORDERED: NS 1,000 ML IV SCH ×2 (19:50→21:35)
[2021-04-24] MEDS ORDERED: SILV50CR EXT (21:20)
[2021-04-24] MEDS ORDERED: SPIR-10 PO (21:20)
[2021-04-24] MEDS ORDERED: TORS10TA3 PO (21:20)
[2021-04-24] MEDS ORDERED: TRAM50TA2 PO (21:22)
[2021-04-24] MEDS ORDERED: BIOF4GEL2 EXT (21:22)
[2021-04-24] MEDS ORDERED: HOME MED LIST COMPLETE! XX SCH (21:25)
[2021-04-24] MEDS ORDERED: HYDROMORPHONE HCL 0.5 MG/ 0.5 ML SYRINGE (J1170 PER 1) IV PRN (21:35)
[2021-04-24] MEDS ORDERED: ALBUTEROL 90 MCG/ACT 8GM HFA INHALER INH PRN (21:35)
[2021-04-24] MEDS: FAMOTIDINE 20 MG TAB PO SCH (22:34)
[2021-04-24] MEDS: APIXABAN 2.5 MG TAB (ELIQUIS) PO SCH (22:34)
[2021-04-24] MEDS: EZETIMIBE 10MG TABLET (ZETIA) PO SCH (22:35)
[2021-04-24] MEDS: SILVER SULFADIAZINE 1% CR 50 GM JAR EXT SCH (22:35)
[2021-04-24 23:15] VITALS: BP 108/43
[2021-04-25 05:23] VITALS: BP 107/46
[2021-04-25 07:39] LABS: CALCIUM LEVEL 8.1 MG/DL (8.8-10.2); CREATININE FOR GFR 1.36 MG/DL (0.55-1.30); POTASSIUM SERUM 4.3 MEQ/L (3.5-5.1)
[2021-04-25] MEDS: SYMBICORT 80/4.5MCG INHALER 6GM INH SCH ×2 (07:53→19:49)
[2021-04-25] MEDS: FAMOTIDINE 20 MG TAB PO SCH ×2 (08:43→21:00)
[2021-04-25] MEDS: FERROUS GLUCONATE 324 MG TAB PO SCH (08:43)
[2021-04-25] MEDS: AMIODARONE 200 MG TAB (PACERONE) PO SCH (08:43)
[2021-04-25] MEDS: APIXABAN 2.5 MG TAB (ELIQUIS) PO SCH ×2 (08:43→21:00)
[2021-04-25] MEDS: SILVER SULFADIAZINE 1% CR 50 GM JAR EXT SCH ×2 (08:44→21:00)
[2021-04-25 14:00] VITALS: BP 107/47
[2021-04-25 16:39] LABS: TOTAL PROTEIN 4.7 GM/DL (6.4-8.2)
[2021-04-25] MEDS: EZETIMIBE 10MG TABLET (ZETIA) PO SCH (21:00)
[2021-04-25 22:00] VITALS: BP 137/66
[2021-04-26 06:00] VITALS: BP 137/66
[2021-04-26 07:11] LABS: BASO % 0.1 % (0.0-1.0); HEMATOCRIT 30.2 % (36.0-47.0); HEMOGLOBIN 9.3 g/dl (12.0-15.5); LYMPH # 0.5 10^3/uL (1.5-5.0); LYMPH % 3.6 % (24.0-44.0); MEAN CORPUSCULAR HEMOGLOBIN 26.1 pg (27.0-33.0); MEAN CORPUSCULAR HGB CONC 30.8 g/dl (32.0-36.5); MEAN CORPUSCULAR VOLUME 84.6 fl (80.0-96.0); MONO % 7.1 % (2.0-8.0); NEUTROPHILS # 11.9 10^3/uL (1.5-8.5); NEUTROPHILS % 88.1 % (36.0-66.0); PLATELET COUNT, AUTOMATED 259 10^3/uL (150-450); RED BLOOD COUNT 3.57 10^6/uL (4.00-5.40); WHITE BLOOD COUNT 13.5 10^3/uL (4.0-10.0)
[2021-04-26] MEDS: SYMBICORT 80/4.5MCG INHALER 6GM INH SCH ×2 (07:39→19:32)
[2021-04-26 07:44] LABS: ALBUMIN 1.5 GM/DL (3.2-5.2); BILIRUBIN,TOTAL 0.8 MG/DL (0.2-1.0); CALCIUM LEVEL 8.3 MG/DL (8.8-10.2); CREATININE FOR GFR 1.21 MG/DL (0.55-1.30); GLOMERULAR FILTRATION RATE 45.8 (>39); MAGNESIUM LEVEL 1.8 MG/DL (1.8-2.4); PHOSPHORUS LEVEL 2.6 MG/DL (2.5-4.9); POTASSIUM SERUM 4.1 MEQ/L (3.5-5.1); TOTAL PROTEIN 4.4 GM/DL (6.4-8.2)
[2021-04-26] MEDS ORDERED: SPIRONOLACTONE 12.5MG PER 1/2 TABLET PO SCH (09:00)
[2021-04-26] MEDS ORDERED: TORSEMIDE 10 MG TABLET PO SCH (09:00)
[2021-04-26] MEDS: APIXABAN 2.5 MG TAB (ELIQUIS) PO SCH (09:39)
[2021-04-26] MEDS: FAMOTIDINE 20 MG TAB PO SCH (09:39)
[2021-04-26] MEDS: FERROUS GLUCONATE 324 MG TAB PO SCH (09:39)
[2021-04-26] MEDS: AMIODARONE 200 MG TAB (PACERONE) PO SCH (09:39)
[2021-04-26] MEDS: SILVER SULFADIAZINE 1% CR 50 GM JAR EXT SCH (09:40)
[2021-04-26] MEDS ORDERED: traMADol 50 MG TAB PO PRN (13:10)
[2021-04-26] MEDS ORDERED: CALCIUM CARBONATE 500 MG CHEW U/D PO PRN (13:15)
[2021-04-26 14:00] VITALS: BP 136/64
[2021-04-26] MEDS ORDERED: CALCIUM GLUCONATE 1,000MG/10ML VIAL (100MG/ML) (J0610) As Ordered ONE (20:59)
[2021-04-26] MEDS ORDERED: BRIMONIDINE 0.1% OPHTH SOLN 5 ML OU SCH (21:00)
[2021-04-26] MEDS ORDERED: TIMOLOL MALEATE 0.5% OPHTH SOLN 5 ML OU SCH (21:00)
[2021-04-26] MEDS ORDERED: NOREPINEPHRINE BITARTRATE 8 MG in D5W 492 ML IV SCH (21:15)
[2021-04-26] MEDS ORDERED: SODIUM CHLORIDE INJ ONE (21:21)
[2021-04-26] MEDS ORDERED: EPINEPHrine 1MG/10ML SYRINGE 1.5IN ONE (21:21)
[2021-04-26] MEDS ORDERED: CALCIUM CHLORIDE 10% 1 GM/10 ML SYR ONE (21:21)
[2021-04-26] MEDS ORDERED: SODIUM BICARBONATE 8.4% INJ 50 ML SYRINGE ONE (21:21)
[2021-04-27] MEDS ORDERED: VITAMIN D (CHOLECALCIFEROL) 400 INTERNATIONAL UNITS TAB PO SCH (09:00)
[2021-04-29 11:12] LABS: ALBUMIN 2.04 GM/DL (3.29-5.55); ALBUMIN % 43.3 % (55.8-66.1); ALPHA-1-GLOBULINS 0.47 GM/DL (0.17-0.41); ALPHA-2-GLOBULINS 0.61 GM/DL (0.42-0.99); BETA-1-GLOBULINS % 4.3 % (4.7-7.2); BETA-2-GLOBULINS 0.46 GM/DL (0.19-0.55); BETA-2-GLOBULINS % 9.8 % (3.2-6.5); GAMMA GLOBULIN % 19.6 % (11.1-18.8); GAMMA GLOBULINS 0.92 GM/DL (0.65-1.58)
== END 2021-04-26 21:22 | disposition expired | DRG 551 ==
LOC: M ED 17:46 → M ED INP 21:32 → ENRESERV 22:43 → M MSPAV 23:12
PROVIDERS: ADMIT Internal Medicine; ATTEND Internal Medicine
DX: M48.54XS Collapsed vertebra, not elsewhere classified, thoracic region, sequela of fracture (principal); I26.99 Other pulmonary embolism without acute cor pulmonale; E43 Unspecified severe protein-calorie malnutrition; I21.4 Non-ST elevation (NSTEMI) myocardial infarction; I50.32 Chronic diastolic (congestive) heart failure; N17.9 Acute kidney failure, unspecified; J96.10 Chronic respiratory failure, unspecified whether with hypoxia or hypercapnia; I48.0 Paroxysmal atrial fibrillation; D86.9 Sarcoidosis, unspecified; K21.9 Gastro-esophageal reflux disease without esophagitis; E78.5 Hyperlipidemia, unspecified; Z95.0 Presence of cardiac pacemaker; Z90.49 Acquired absence of other specified parts of digestive tract; Z98.41 Cataract extraction status, right eye; Z98.42 Cataract extraction status, left eye; L97.519 Non-pressure chronic ulcer of other part of right foot with unspecified severity; M48.56XS Collapsed vertebra, not elsewhere classified, lumbar region, sequela of fracture; I11.0 Hypertensive heart disease with heart failure; D50.9 Iron deficiency anemia, unspecified; Z79.01 Long term (current) use of anticoagulants; Z79.899 Other long term (current) drug therapy; Z88.6 Allergy status to analgesic agent; Z91.010 Allergy to peanuts; E55.9 Vitamin D deficiency, unspecified; L89.159 Pressure ulcer of sacral region, unspecified stage; Z99.81 Dependence on supplemental oxygen; I27.21 Secondary pulmonary arterial hypertension; I46.9 Cardiac arrest, cause unspecified